=== PATIENT | male | born 1935 | race Caucasian/White ===

== ENCOUNTER → 2017-10-05 09:06 | Outpatient (CLI) | payer MEDICARE, SELFPAY ==
[2017-10-05 11:23] LABS: Anion Gap 12 (5-15); BUN 17 mg/dL (7-18); BUN/Creat Ratio 8.8 RATIO (10-20); Calcium,Total 8.9 mg/dL (8.5-10.1); Chloride 103 mmol/L (98-107); Creatinine, Serum 1.94 mg/dL (0.70-1.30); EST Glomerular Filtration Rate 36 mL/min (>60); Est Glom Filt Rate - Afr Amer 43 mL/min (>60); Glucose 77 mg/dL (74-106); Potassium 3.9 mmol/L (3.5-5.1); Sodium Level 142 mmol/L (136-145)
== END ==
PROVIDERS: Family Provider Family Medicine; PCP Family Medicine; Visit Provider Family Medicine
DX: I10 Essential (primary) hypertension (principal)
CPT/HCPCS: 36415; 80048

== ENCOUNTER → 2017-10-25 08:26 | Outpatient (CLI) | payer MEDICARE, SELFPAY ==
[2017-10-25 09:43] LABS: Anion Gap 10 (5-15); BUN 24 mg/dL (7-18); BUN/Creat Ratio 12.1 RATIO (10-20); Calcium,Total 8.4 mg/dL (8.5-10.1); Chloride 109 mmol/L (98-107); Creatinine, Serum 1.98 mg/dL (0.70-1.30); EST Glomerular Filtration Rate 35 mL/min (>60); Est Glom Filt Rate - Afr Amer 42 mL/min (>60); Glucose 83 mg/dL (74-106); Potassium 3.8 mmol/L (3.5-5.1); Sodium Level 143 mmol/L (136-145)
== END ==
PROVIDERS: Family Provider Family Medicine; PCP Family Medicine; Visit Provider Family Medicine
DX: N18.3 Chronic kidney disease, stage 3 (moderate) (principal)
CPT/HCPCS: 36415; 80048

== ENCOUNTER → 2018-04-22 10:23 | Outpatient (CLI) | payer MEDICARE, SELFPAY ==
[2018-04-22 11:48] LABS: Anion Gap 9 (5-15); BUN 29 mg/dL (7-18); BUN/Creat Ratio 15.3 RATIO (10-20); Calcium,Total 8.7 mg/dL (8.5-10.1); Chloride 107 mmol/L (98-107); Creatinine, Serum 1.89 mg/dL (0.70-1.30); EST Glomerular Filtration Rate 37 mL/min (>60); Est Glom Filt Rate - Afr Amer 44 mL/min (>60); Glucose 97 mg/dL (74-106); Potassium 4.5 mmol/L (3.5-5.1); Sodium Level 140 mmol/L (136-145)
--- OUTSIDE RECORDS SUMMARY | 2018-06-08 01:28 | XMS RPT_ITS ---
:1935 Author Organization OHIP Care Team Providers Name Role Phone Yaron Rolon Attending Unavailable Greg Wilson Primary Care Unavailable Yaron Rolon Referring Unavailable Steve, Greg Attending Unavailable Greg Wilson Primary Care Unavailable Greg Wilson Referring Unavailable Greg Wilson Attending Unavailable Greg Wilson Primary Care Unavailable Greg Wilson Referring Unavailable GREG WILSON Attending Unavailable GREG WILSON Referring Unavailable Yaron ROLON (PA-C) Attending Unavailable GREG WILSON Attending Unavailable GREG WILSON Referring Unavailable Yaron ROLON (PA-C) Attending Unavailable Yaron ROLON (PA-C) Attending Unavailable Meera Peck Admitting Unavailable Meera Peck Attending Unavailable Greg Wilson Primary Care Unavailable Dr. Meera Peck Attending Unavailable Karlos [facility] Primary Care Unavailable PROBLEMS PROBLEMS DATE TYPE CONDITION / CODE ATTENDING STATUS SOURCE 02/03/2018 Active Cough / NA Active [facility] R05(ICD-10) [place] Repository 02/03/2018 Active Unspecified NA Active [facility] chronic bronchitis [place] / J42(ICD-10) Repository 07/23/2017 Active Bronchitis, not NA Active [facility] specified as acute [place] or chronic / Repository J40(ICD-10) PROCEDURES PROCEDURES No Procedure Records FoundRESULTS RESULTS OBSOLETE Observed: 05/26/2018 Status: COMPLETED Source: [place] 12:00 AM [facility] REPOSITORY Refill (FAMPWS) AMBERLY DUNBAR ([id number]) 1935 M Date Time Provider Department 05/26/18 GREG WILSON [facility] During your visit today, we recorded the following information about you: Dori Bauer Psr 05/26/2018 8:47 AM Signed Patient has been identified by name and date of : Yes Pending Prescriptions Disp Refills FINASTERIDE 5 MG TABLET 90 tablet 3 Sig: Take 1 tablet by mouth once daily. MARICARMEN: No CHOLESTYRAMINE (WITH SUGAR) 4 GRAM POWDER FOR SUSP IN A PACKET 120 Packet 6 Sig: Take 1 Packet by mouth four times daily. MARICARMEN: No RX INSTRUCTIONS: Patient aware RX will be sent to pharmacy. No need to notify patient. Dori Bauer Psr Cydney Tyler LPN 05/26/2018 9:00 AM Signed DAVID: 05/12/18 w/ NANETTE Rolon NOV: None scheduled Last Refill: Proscar: 05/31/17 #90 3 refills Questran: 09/17/16 120 pack 6 refills Cydney Tyler LPN Allergies As of Date: 05/26/2018 Noted Allergy Reaction DEMEROL (MEPERIDINE (PF)) 12/14/2014 11 - Vomiting DILTIAZEM 01/19/2011 14 - Other: See Comments Comments: stasis edema GABAPENTIN 06/16/2010 5 - Intolerance Comments: goofy groggy LISINOPRIL 11/03/2010 3 - Cough Comments: cough AMPICILLIN 01/19/2005 5 - Intolerance Comments: rectal yeast NIACIN 01/19/2005 5 - Intolerance Comments: skin hot prickling Date Reviewed: 05/12/2018 Reviewed by: Cecy Ovalle LPN - Fully Assessed Reason for Visit: Refill Request [94] Order(s):finasteride (PROSCAR) 5 mg tabletTake 1 tablet by mouth once daily.Disp: 90 tabletRfl: 3 cholestyramine (QUESTRAN) 4 gram packetTake 1 Packet by mouth four times daily.Disp: 120 PacketRfl: 6 Prescriptions as of 05/26/2018 Sig: FINASTERIDE 5 MG TABLET Take 1 tablet by mouth once d* CHOLESTYRAMINE (WITH SUGAR) 4* Take 1 Packet by mouth four t* ALBUTEROL SULFATE 2.5 MG/3 ML* Use 3 mL via nebulizer every * HYDROCHLOROTHIAZIDE 25 MG TAB* Take 1 tablet by mouth once d* LORATADINE 10 MG TABLET Take 1 tablet by mouth once d* ALBUTEROL INHALATION Inhale as instructed. ICAPS AREDS ORAL Take 1 tablet by mouth twice * ACETAMINOPHEN 325 MG TABLET Take 650 mg by mouth every 6 * FISH OIL ORAL Take by mouth. NITROGLYCERIN 0.4 MG SUBLINGU* Dissolve 1 tablet under the t* Patient not taking: Reported on 05/12/2018 [id number] * Take 1 tablet by mouth once d* CHOLECALCIFEROL (VITAMIN D3) * Take 1 capsule by mouth once * ASPIRIN 81 MG TABLET,DELAYED * Take 1 tablet by mouth once d* FLUTICASONE 50 MCG/ACTUATION * One puff per nostril before l* Problem List As Of Date 05/26/2018 Noted Resolved Pure hypercholesterolemia [E78.00] INVALID FOR* More... 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 NOCTURIA [R35.1] INVALID FOR* More... MITRAL VALVE DISORDER [I05.9] GENERAL OSTEOARTHROSIS [M15.9] Mononeuritis [G58.9] More... 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] INVALID FOR*06/22/2016 Other seborrheic dermatitis [L21.8] INVALID FOR*06/22/2016 Pruritus [L29.9] INVALID FOR*06/22/2016 Benign neoplasm of R upper eyelid [D23.10] INVALID FOR*06/22/2016 Skin tag [L91.8] INVALID FOR*01/29/2014 Scar condition and fibrosis of skin [L90.5] INVALID FOR*06/22/2016 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 Right leg DVT (HCC) [I82.401] INVALID FOR*06/22/2016 More... CKD (chronic kidney disease) stage 3, GFR 30-59*INVALID FOR* RBBB (right bundle branch block with left anter*INVALID FOR* Abdominal pain, unspecified site [R10.9] INVALID FOR*11/26/2016 Diffuse large B-cell lymphoma of intra-abdomina*INVALID FOR* More... 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 Prescriptions ordered this encounter Disp Refills Start End FINASTERIDE 5 MG TABLET 90 t* 3 05/26/2018 Route: ORAL Sig: Take 1 tablet by mouth once daily. CHOLESTYRAMINE (WITH SUGAR) 4 GRAM P* 120 * 6 05/26/2018 Route: ORAL Sig: Take 1 Packet by mouth four times daily. Medications Discontinued During This Encounter finasteride (PROSCAR) 5 mg tablet 90 t* 3 05/31/2017 05/26/2018 Route: ORAL Sig: Take 1 tablet by mouth once daily. Disc: Reason for discontinue is not on file. cholestyramine (QUESTRAN) 4 gram pac* 120 * 6 09/17/2016 05/26/2018 Route: ORAL Sig: Take 1 Packet by mouth four times daily. Disc: Reason for discontinue is not on file. Encounter Status:Closed by GREG WILSON MD on 05/26/18 PROGRESS Observed: 05/12/2018 Status: COMPLETED Source: [place] 10:14 AM [facility] RE[facility] HNO ID: [id number] Author: Yaron Pate (Pa-C) Gonzales Service: (none) Author Type: Physician Stepdown Nurse Type: Progress Notes Filed: 05/12/2018 10:37 AM Note Text: 82 year old male with c/o started with cough yesterday. No sleep over night due to hacking. Thinks just from phlegm. Last time prednisone helped. Having cataract surgery Wednesday. A little wheezing last night coughed up sputum and felt better. Used nebulizer prior to sleep and then again this morning. Phlegm is ropey. CXR has been normal. is at cancer center related to lung cancer and back pain. Discussed renal insufficiency. Has appt with nephrology. Has had moderate insuff prior to 2010. HISTORIES FAMILY HISTORY Problem Relation Age of Onset - Heart Mother - Diabetes Maternal Grandmother - Hypertension Brother elevated cholesterol ? 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 - Snoring - Solar Lentigines 03/22/2012 PAST SURGICAL HISTORY Procedure Laterality Date - APPENDECTOMY 1949 - COLONOSCOP W/ OR W/O [facility] SPEC 09/17/1997 sigmoidoscopy - COLONOSCOP W/ OR W/O BRS SPEC 05/06/1998 Colonoscopy - COLONOSCOP W/ OR W/O BRS SPEC 12/17/14 Colonoscopy - COLONOSCOPY W/BX 01/31/14 No cecal cancer, - COLONOSCOPY W/BX 09/09/2016 anal irritation - CYSTO.PANENDO Cystoscopy - KNEE SCOPE,DIAGNOSTIC 1997 Arthroscopy, knee left, injury left knee laceration 1955 after A/A - [employer] HERNIA REPAIR 08/25/2016 repaired with Vloc- no mesh due to inflammed gallbladder - [employer] HERNIA REPAIR RECUR 03/15/[id number] mesh - LAPAROSCOPIC CHOLEYCYSTECTOMY 08/25/2016 acute on chronic inflammation - PAST SURGICAL HISTORY OF 1975 anal fissurectomy - PAST SURGICAL HISTORY OF 1981 laminectomy - PAST SURGICAL HISTORY OF 1994 sinus surgery - PAST SURGICAL HISTORY OF 1958 pilonodal cyst - PAST SURGICAL HISTORY OF 07/05/12 R total knee replacement - REMOVAL OF TONSILS,<12 Y/O Tonsillectomy - REMOVAL LUPE VAD W PORT/PUMP 12/2016 - REPAIR INCISIONAL HERNIA,REDUCIBLE 03/15/2017 Hernia repair, incisional ventral ST mesh [facility] - REPAIR UMBILICAL DONNA,5+Y/O,REDUC 2001 Hernia repair, umbilical >5yr - TOTAL KNEE REPLACEMENT 06/10/[address] Grimm Social History Marital status: Spouse name: Years of education: Number of children: 2 Social History Main Topics Smoking status: Former Smoker Packs/day: 1.00 Years: 20.00 Types: Cigarettes Quit date: 05/10/1975 Smokeless tobacco: Never Used Alcohol use: Yes 1.0 oz/week Comment: ocas Drug use: No Sexual activity: Yes Partners with: Female ACTIVE PROBLEM LIST Pure Hypercholesterolemia Nocturia Mitral Valve Disorders(424.0) Generalized Osteoarthrosis, Unspecified Site Mononeuritis Benign Prostatic Hyperplasia Without Lower Urinary Tract Symptoms Osteoarthritis Hypertension Abnormality of Gait Ckd (Chronic Kidney Disease) Stage 3, Gfr 30-59 Ml/Min (Hcc) 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 Use over 5-15minutes. Disp: 120 mL Rfl: 3 hydroCHLOROthiazide (HYDRODIURIL, ESIDRIX) 25 mg tablet Take 1 tablet by mouth once daily. Disp: 90 tablet Rfl: 0 loratadine (CLARITIN) 10 mg tablet Take 1 tablet by mouth once daily. Disp: 90 tablet Rfl: 3 finasteride (PROSCAR) 5 mg tablet Take 1 tablet by mouth once daily. Disp: 90 tablet Rfl: 3 ALBUTEROL INHALATION Inhale as instructed. Disp: Rfl: VIT A/VIT C/VIT E/ZINC/COPPER (ICAPS AREDS ORAL) Take 1 tablet by mouth twice daily. Disp: Rfl: cholestyramine (QUESTRAN) 4 gram packet Take 1 Packet by mouth four times daily. Disp: 120 Packet Rfl: 6 acetaminophen (TYLENOL) 325 mg tablet Take 650 mg by mouth every 6 hours as needed. Disp: Rfl: DOCOSAHEXANOIC ACID/EPA (FISH OIL ORAL) Take by mouth. Disp: Rfl: Lxgyafpgeubwl-Cgozfgkz-Otzfnd (CENTRUM SILVER) tab Take 1 tablet by mouth once daily. Disp: 1 tablet Rfl: 0 Cholecalciferol, Vitamin D3, 1,000 unit cap Take 1 capsule by mouth once daily. Disp: Rfl: 0 aspirin, enteric coated (ADULT LOW DOSE ASPIRIN) 81 mg EC tablet Take 1 tablet by mouth once daily. Disp: 90 tablet Rfl: 3 fluticasone (FLONASE) 50 mcg/Actuation NASAL nasal spray One puff per nostril before lying down for bed. Disp: Rfl: 12 nitroglycerin sublingual 0.4 mg SL tablet Dissolve 1 tablet under the tongue as needed. FOR CHEST PAIN. IF NO RELIEF CALL 911 (Patient not taking: Reported on 05/12/2018 ) Disp: 25 Bottle of 25 Rfl: 2 No current facility-administered medications for this visit. DTAP,TDAP,TD(1 - Tdap) due on 11/21/1955 EXAM: BP 120/60 Pulse 88 Temp 36.7 ?C (98 ?F) (Tympanic) Resp 24 Wt 111.1 kg (245 lb) SpO2 93% BMI 31.46 kg/m? Pleasant older man in no acute distress. Alert and oriented all spheres. Normal affect and cognition. Speech normal. No deficits to learning or comprehension. Speaking in full sentencese Skin warm, dry, pink to lips and nailbeds. Normal turgor. Respirations regular and unlabored. No retractions. HEENT WNL. TM's clear. Nose and oropharynx free from injection or lesion. No cervical lymph nodes. Thyroid non-tender, no masses Chest CTA. HRRR without murmur or gallop. Extrem: no clubbing, cyanosis, edema. Extremities are warm and pink with prompt capillary refill. ASSESSMENT/PLAN: 1. Cough - ICD9: 786.2, ICD10: R05 (primary diagnosis) - PREDNISONE 20 MG TABLET 2. Wheezing - ICD9: 786.07, ICD10: R06.2 - PREDNISONE 20 MG TABLET Prednisone due to pending surgery. Continue nebs. Patient agrees to contact form grader with med changes and cough for instructions. Yaron Rolon PA-C CNOV Observed: 05/12/2018 Status: COMPLETED Source: [place] 9:[address] [facility] REPOSITORY Office Visit (FAMPWS) AMBERLY DUNBAR ([id number]) 1935 M Date Time Provider Department 05/12/18 9:00 AM Yaron ROLON) FAMPWS During your visit today, we recorded the following information about you: Temperature Pulse Respiration Blood pressure 98 degrees 88/minute 24/minute 120/60 Weight 111.1 kg Yaron Rolon PA-C 05/12/2018 10:37 AM Signed 82 year old male with c/o started with cough yesterday. No sleep over night due to hacking. Thinks just from phlegm. Last time prednisone helped. Having cataract surgery Wednesday. A little wheezing last night coughed up sputum and felt better. Used nebulizer prior to sleep and then again this morning. Phlegm is ropey. CXR has been normal. is at cancer center related to lung cancer and back pain. Discussed renal insufficiency. Has appt with nephrology. Has had moderate insuff prior to 2010. HISTORIES FAMILY HISTORY Problem Relation Age of Onset - Heart Mother - Diabetes Maternal Grandmother - Hypertension Brother elevated cholesterol ? 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 - Snoring - Solar Lentigines 03/22/2012 PAST SURGICAL HISTORY Procedure Laterality Date - APPENDECTOMY 194 - COLONOSCOP W/ OR W/O [facility] SPEC 09/17/1997 sigmoidoscopy - COLONOSCOP W/ OR W/O [facility] SPEC 05/06/1998 Colonoscopy - COLONOSCOP W/ OR W/O [facility] SPEC 12/17/14 Colonoscopy - COLONOSCOPY W/BX 01/31/14 No cecal cancer, - COLONOSCOPY W/BX 09/09/2016 anal irritation - CYSTO.PANENDO Cystoscopy - KNEE SCOPE,DIAGNOSTIC 1997 Arthroscopy, knee left, injury left knee laceration 1955 after A/A - [employer] HERNIA REPAIR 08/25/2016 repaired with Vloc- no mesh due to inflammed gallbladder - [employer] HERNIA REPAIR RECUR 03/15/[id number] mesh - LAPAROSCOPIC CHOLEYCYSTECTOMY 08/25/2016 acute on chronic inflammation - PAST SURGICAL HISTORY OF 1975 anal fissurectomy - PAST SURGICAL HISTORY OF 1981 laminectomy - PAST SURGICAL HISTORY OF 1994 sinus surgery - PAST SURGICAL HISTORY OF 1958 pilonodal cyst - PAST SURGICAL HISTORY OF 07/05/12 R total knee replacement - REMOVAL OF TONSILS,<12 Y/O Tonsillectomy - REMOVAL LUPE VAD W PORT/PUMP 12/2016 - REPAIR INCISIONAL HERNIA,REDUCIBLE 03/15/2017 Hernia repair, incisional ventral ST mesh [facility] - REPAIR UMBILICAL DONNA,5+Y/O,REDUC 2001 Hernia repair, umbilical >5yr - TOTAL KNEE REPLACEMENT 06/10/[address] Grimm Social History Marital status: Spouse name: Years of education: Number of children: 2 Social History Main Topics Smoking status: Former Smoker Packs/day: 1.00 Years: 20.00 Types: Cigarettes Quit date: 05/10/1975 Smokeless tobacco: Never Used Alcohol use: Yes 1.0 oz/week Comment: ocas Drug use: No Sexual activity: Yes Partners with: Female ACTIVE PROBLEM LIST Pure Hypercholesterolemia Nocturia Mitral Valve Disorders(424.0) Generalized Osteoarthrosis, Unspecified Site Mononeuritis Benign Prostatic Hyperplasia Without Lower Urinary Tract Symptoms Osteoarthritis Hypertension Abnormality of Gait Ckd (Chronic Kidney Disease) Stage 3, Gfr 30-59 Ml/Min (Hcc) 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 Use over 5-15minutes. Disp: 120 mL Rfl: 3 hydroCHLOROthiazide (HYDRODIURIL, ESIDRIX) 25 mg tablet Take 1 tablet by mouth once daily. Disp: 90 tablet Rfl: 0 loratadine (CLARITIN) 10 mg tablet Take 1 tablet by mouth once daily. Disp: 90 tablet Rfl: 3 finasteride (PROSCAR) 5 mg tablet Take 1 tablet by mouth once daily. Disp: 90 tablet Rfl: 3 ALBUTEROL INHALATION Inhale as instructed. Disp: Rfl: VIT A/VIT C/VIT E/ZINC/COPPER (ICAPS AREDS ORAL) Take 1 tablet by mouth twice daily. Disp: Rfl: cholestyramine (QUESTRAN) 4 gram packet Take 1 Packet by mouth four times daily. Disp: 120 Packet Rfl: 6 acetaminophen (TYLENOL) 325 mg tablet Take 650 mg by mouth every 6 hours as needed. Disp: Rfl: DOCOSAHEXANOIC ACID/EPA (FISH OIL ORAL) Take by mouth. Disp: Rfl: Qhkgvmkotjgmi-Xywunztg-Udluqp (CENTRUM SILVER) tab Take 1 tablet by mouth once daily. Disp: 1 tablet Rfl: 0 Cholecalciferol, Vitamin D3, 1,000 unit cap Take 1 capsule by mouth once daily. Disp: Rfl: 0 aspirin, enteric coated (ADULT LOW DOSE ASPIRIN) 81 mg EC tablet Take 1 tablet by mouth once daily. Disp: 90 tablet Rfl: 3 fluticasone (FLONASE) 50 mcg/Actuation NASAL nasal spray One puff per nostril before lying down for bed. Disp: Rfl: 12 nitroglycerin sublingual 0.4 mg SL tablet Dissolve 1 tablet under the tongue as needed. FOR CHEST PAIN. IF NO RELIEF CALL 911 (Patient not taking: Reported on 05/12/2018 ) Disp: 25 Bottle of 25 Rfl: 2 No current facility-administered medications for this visit. DTAP,TDAP,TD(1 - Tdap) due on 11/21/1955 EXAM: BP 120/60 Pulse 88 Temp 36.7 ?C (98 ?F) (Tympanic) Resp 24 Wt 111.1 kg (245 lb) SpO2 93% BMI 31.46 kg/m? Pleasant older man in no acute distress. Alert and oriented all spheres. Normal affect and cognition. Speech normal. No deficits to learning or comprehension. Speaking in full sentencese Skin warm, dry, pink to lips and nailbeds. Normal turgor. Respirations regular and unlabored. No retractions. HEENT WNL. TM's clear. Nose and oropharynx free from injection or lesion. No cervical lymph nodes. Thyroid non-tender, no masses Chest CTA. HRRR without murmur or gallop. Extrem: no clubbing, cyanosis, edema. Extremities are warm and pink with prompt capillary refill. ASSESSMENT/PLAN: 1. Cough - ICD9: 786.2, ICD10: R05 (primary diagnosis) - PREDNISONE 20 MG TABLET 2. Wheezing - ICD9: 786.07, ICD10: R06.2 - PREDNISONE 20 MG TABLET Prednisone due to pending surgery. Continue nebs. Patient agrees to contact form grader with med changes and cough for instructions. EDUARDO Morales PA-C 05/12/2018 10:35 AM Signed Prednisone as directed Push fluids. Hot liquids will help to loosen phlegm Using nebulizer as needed. F/U if cough persists. Referring Provider: SELF [[id number]] Allergies As of Date: 05/12/2018 Noted Allergy Reaction DEMEROL (MEPERIDINE (PF)) 12/14/2014 11 - Vomiting DILTIAZEM 01/19/2011 14 - Other: See Comments Comments: stasis edema GABAPENTIN 06/16/2010 5 - Intolerance Comments: goofy groggy LISINOPRIL 11/03/2010 3 - Cough Comments: cough AMPICILLIN 01/19/2005 5 - Intolerance Comments: rectal yeast NIACIN 01/19/2005 5 - Intolerance Comments: skin hot prickling Date Reviewed: 05/12/2018 Reviewed by: Cecy Ovalle LPN - Fully Assessed Reason for Visit: Cough [28] Cmt: started yesterday evening. Recently treated with prednisone around 04/18/18. Primary Visit Diagnosis:Cough [R05] Other Visit Diagnosis:Wheezing [R06.2] Order(s):predniSONE (DELTASONE) 20 mg tabletTake 1 tablet by mouth once daily for 5 days.Disp: 5 tabletRfl: 0 Prescriptions as of 05/12/2018 Sig: ALBUTEROL SULFATE 2.5 MG/3 ML* Use 3 mL via nebulizer every * HYDROCHLOROTHIAZIDE 25 MG TAB* Take 1 tablet by mouth once d* LORATADINE 10 MG TABLET Take 1 tablet by mouth once d* FINASTERIDE 5 MG TABLET Take 1 tablet by mouth once d* ALBUTEROL INHALATION Inhale as instructed. ICAPS AREDS ORAL Take 1 tablet by mouth twice * CHOLESTYRAMINE (WITH SUGAR) 4* Take 1 Packet by mouth four t* ACETAMINOPHEN 325 MG TABLET Take 650 mg by mouth every 6 * FISH OIL ORAL Take by mouth. DHQKEHRWAIEU-WFNIDYHB-WRIOZJ * Take 1 tablet by mouth once d* CHOLECALCIFEROL (VITAMIN D3) * Take 1 capsule by mouth once * ASPIRIN 81 MG TABLET,DELAYED * Take 1 tablet by mouth once d* FLUTICASONE 50 MCG/ACTUATION * One puff per nostril before l* PREDNISONE 20 MG TABLET Take 1 tablet by mouth once d* NITROGLYCERIN 0.4 MG SUBLINGU* Dissolve 1 tablet under the t* Patient not taking: Reported on 05/12/2018 Problem List As Of Date 05/12/2018 Noted Resolved Pure hypercholesterolemia [E78.00] INVALID FOR* More... 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 NOCTURIA [R35.1] INVALID FOR* More... MITRAL VALVE DISORDER [I05.9] GENERAL OSTEOARTHROSIS [M15.9] Mononeuritis [G58.9] More... 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] INVALID FOR*06/22/2016 Other seborrheic dermatitis [L21.8] INVALID FOR*06/22/2016 Pruritus [L29.9] INVALID FOR*06/22/2016 Benign neoplasm of R upper eyelid [D23.10] INVALID FOR*06/22/2016 Skin tag [L91.8] INVALID FOR*01/29/2014 Scar condition and fibrosis of skin [L90.5] INVALID FOR*06/22/2016 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 Right leg DVT (HCC) [I82.401] INVALID FOR*06/22/2016 More... CKD (chronic kidney disease) stage 3, GFR 30-59*INVALID FOR* RBBB (right bundle branch block with left anter*INVALID FOR* Abdominal pain, unspecified site [R10.9] INVALID FOR*11/26/2016 Diffuse large B-cell lymphoma of intra-abdomina*INVALID FOR* More... 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 Other instructions from your clinician: Prednisone as directed Push fluids. Hot liquids will help to loosen phlegm Using nebulizer as needed. F/U if cough persists. Prescriptions ordered this encounter Disp Refills Start End PREDNISONE 20 MG TABLET 5 ta* 0 05/12/2018 05/17/2018 Route: ORAL Sig: Take 1 tablet by mouth once daily for 5 days. Medications Discontinued During This Encounter heparin 100 unit/mL syrg 1 Sy* 50 10/08/2015 05/12/2018 Class: In Office Sig: Access implanted vascular access device (IVAD) as needed for flush, blood draw or treatment. Before de-accessing port, flush with 10- 20ml normal saline and follow with 5 mL heparin (100 units/mL) (if no heparin allergy). De-access port on treatment completion. Disc: Reason for discontinue is not on file. heparin 100 unit/mL syrg 1 Sy* 50 04/30/2016 05/12/2018 Class: In Office Sig: Access implanted vascular access device (IVAD) as needed for flush, blood draw or treatment. Before de-accessing port, flush with 10- 20ml normal saline and follow with 5 mL heparin (100 units/mL) (if no heparin allergy). De-access port on treatment completion. Disc: Reason for discontinue is not on file. COMPOUNDED PRESCRIPTION 1 Ea* 0 09/21/2016 05/12/2018 Class: Print RX Sig: Access IV port. Access implanted vascular access device (IVAD) as needed for flush. Flush IVAD with 10-20 ml NS and 5 ml heparin flush, every 4 weeks and PRN when IVAD not in use. Disc: Reason for discontinue is not on file. 0.9% NaCl (NORMAL SALINE FLUSH) 10 mL 12 07/01/2015 05/12/2018 Class: In Office Route: INTRAVENOUS Sig: Inject 2-10 mL intravenously as needed (a 4 weeks via port). Disc: Reason for discontinue is not on file. 0.9% NaCl 2 Sy* 50 04/30/2016 05/12/2018 Class: In Office Sig: Access implanted vascular access device (IVAD) as needed for flush, blood draw or treatment. Flush IVAD with 10-20 mL NS every 4 weeks and PRN when IVAD not in use. Disc: Reason for discontinue is not on file. Encounter Status:Closed by Yaron ROLON PA-C on 05/12/18 CBC W/ AUTO DIFF Collected: 05/11/2018 Status: F Source: [facility] 9:42 AM [facility] REPOSITORY TYPE CODE TESTS RESULT OUT OF RANGE REFERENCE UNITS LAB [id number](L 3.6-11.0 E3/mcL OINC) Normal WBC 9.7 LAB [id number](L 3.90-6.10 E6/mcL OINC) Normal RBC 4.65 LAB [id number](L 13.5-18.0 G/DL OINC) Normal Hgb 15.0 LAB [id number](L 42.0-52.0 % OINC) Normal Hct 45.4 LAB 63659550(L 11.5-14.5 % OINC) Normal RDW 14.4 LAB [id number](L 27.0-31.0 pg OINC) High MCH 32.3 LAB [id number](L 33.0-37.0 G/DL OINC) Normal MCHC 33.1 LAB [id number](L 78.0-100.0 fL OINC) Normal MCV 97.6 LAB [id number](L 7.4-11.0 fL OINC) Normal MPV 8.3 LAB [id number](L 130-400 E3/mcL OINC) Normal Platelet 232 Performed By: #### [id number] #### [facility] [employer] [address] [place] [address] AUTO DIFF Collected: 05/11/2018 Status: F Source: [facility] 9:42 AM [facility] REPOSITORY Order Comment: Order Added by Discern Expert. TYPE CODE TESTS RESULT OUT OF RANGE REFERENCE UNITS LAB [id number](L 37.0-75.0 % OINC) Normal Neutro Auto 65.3 LAB [id number](L 20.0-55.0 % OINC) Low Lymph Auto 14.6 LAB 19511565(L 0.0-10.0 % OINC) Normal Wilkinson Auto 7.3 LAB 07786955(L 0.0-11.0 % OINC) High Eos Auto 11.5 LAB [id number](L 0.0-2.0 % OINC) Normal Basophil Auto 1.3 LAB [id number](L 1.4-6.5 E3/mcL OINC) Normal Neutro 6.4 Absolute LAB [id number](L 1.2-3.4 E3/mcL OINC) Normal Lymph Absolute 1.4 LAB 57151867(L 0.0-0.7 E3/mcL OINC) Normal Wilkinson Absolute 0.7 LAB 97372879(L 0.0-0.7 E3/mcL OINC) High Eos Absolute 1.1 LAB 74161592(L 0.0-0.2 E3/mcL OINC) Normal Basophil 0.1 Absolute Performed By: #### [id number] #### GALEN [employer] [address] [place] [address] CMP Collected: 05/11/2018 Status: F Source: [facility] 9:42 AM [facility] REPOSITORY TYPE CODE TESTS RESULT OUT OF RANGE REFERENCE UNITS LAB [id number](L 70-99 mg/dL OINC) High Glucose Lvl 106 LAB 79166617(L 6-23 mg/dL OINC) High BUN 24 LAB 8963029(LO 0.5-1.3 mg/dL INC) High Creatinine 2.2 LAB [id number](L 8.6-10.3 mg/dL OINC) Calcium Normal Lvl 9.5 LAB 75973560(L 136-145 mEq/L OINC) Sodium Normal Lvl 141 LAB 98289555(L 3.5-5.3 mEq/L OINC) Normal Potassium Lvl 4.2 LAB 26166374(L 98-107 mEq/L OINC) Chloride Normal 104 LAB [id number](L 21.0-32.0 mEq/L OINC) CO2 Normal 28.0 LAB 76273498(L 33-136 Int._Unit/ OINC) L Alk Phos Normal 50 LAB 32319248(L 0.00-1.20 mg/dL OINC) Bili Normal Total 0.55 LAB 92012839(L 3.4-5.0 gm/dL OINC) Albumin Normal Lvl 4.1 LAB 63385398(L 6.4-8.2 gm/dL OINC) Total Normal Protein 6.7 LAB 91640005(L 10-52 Int._Unit/ OINC) L ALT Normal 22 LAB [id number](L 9-39 Int._Unit/ OINC) L AST Normal 31 LAB 49407540(L 5.4-30.0 ratio OINC) Normal BUN/Creat Ratio 10.9 LAB 51740977(L 10-20 mEq/L OINC) AGAP Normal 13 LAB 48828041(L 2.0-4.0 G/DL OINC) Globulin Normal 3.0 LAB 12680571(L 1.1-1.9 ratio OINC) A/G Normal Ratio 1.6 Performed By: #### [id number] #### [facility] [employer] [address] [place] [address] EGFR Collected: 05/11/2018 Status: F Source: [facility] 9:42 AM [facility] REPOSITORY Order Comment: Order added by Discern Expert. TYPE CODE TESTS RESULT OUT OF RANGE REFERENCE UNITS LAB [id number](LO mL/min/1.73 INC) m2 Normal eGFR 29 LAB 65490226(LO mL/min/1.73 INC) m2 Normal eGFR AA 35 Performed By: #### [id number] #### [facility] [employer] [address] [place] [address] LDH Collected: 05/11/2018 Status: F Source: [facility] 9:42 AM [facility] REPOSITORY TYPE CODE TESTS RESULT OUT OF RANGE REFERENCE UNITS LAB [id number](LO 84-246 Int._Unit/L INC) Normal LDH 188 Performed By: #### [id number] #### [facility] [employer] [address] [place] [address] BASIC METABOLIC Collected: 04/22/2018 Status: F Source: [facility] (BMP) 10:31 AM [facility] REPOSITORY TYPE CODE TESTS RESULT OUT OF RANGE REFERENCE UNITS LAB L501.0100 74-106 mg/dL Normal GLU 97 Result Comment: Please note revised GLUCOSE reference range effective 2017. LAB L501.1000 7-18 mg/dL High BUN 29 LAB L501.1100 0.70-1.30 mg/dL High CREAT,SERUM 1.89 Result Comment: The validity of the calculated GFR AND GFRAA in patients over 70 years has not been determined. Clinical correlation is essential. LAB L501.1110 >60 mL/min Low EST GFR 37 Result Comment: Non- GFR Calc LAB L501.1115 >60 mL/min Low EST GFR - AA 44 Result Comment: GFR Calc LAB L501.1300 10-20 RATIO Normal BUN/CRE 15.3 LAB L501.2200 8.5-10.1 mg/dL CA Normal 8.7 LAB L501.5300 136-145 mmol/L NA Normal 140 LAB L501.5600 3.5-5.1 mmol/L K Normal 4.5 LAB L501.5900 98-107 mmol/L CL Normal 107 LAB L501.6100 21.0-32.0 mmol/L Normal CO2 24.0 LAB L501.6200 5-15 Normal GAP 9 Performed By: #### L500.2500 #### [facility] [address] [place], [place], [address] PROGRESS Observed: 04/18/2018 Status: COMPLETED Source: [place] 11:[address] [facility] REPOSITORY O ID: [id number] Author: Yaron Pate (Eduardo) Gonzales Service: (none) Author Type: Physician Stepdown Nurse Type: Progress Notes Filed: 04/20/2018 5:01 PM Note Text: 82 year old male with c/o cough over last 10 days. No hx fever. tickley hacking cough, now producing phlegm. Only slept 2 hours last night. Spasm in right neck with cough. had cold sx with cough and congestion. Last year had severe SOB, went to hospital. No hx pneumonia but treated with prednisone and ATB. Had consult pulm, PFT 02/03/18 WNL. Wheezes until ocughs out phlegm, then better. Using Albuterol nebs about three times in last 2 days: helps. 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 Very unsteady on feet. Uses cane and walker. CRF3. 18 BUN 24, creatinine 1.98, up from 17 and 1.94. Has not been checked since. HTN: controlled on HCTZ. No complications. Last 3 Encounter BP Readings: Date: BP: 04/18/2018 122/64 01/28/2018 130/72 11/15/2017 120/62 HISTORIES FAMILY HISTORY Problem Relation Age of Onset - Heart Mother - Diabetes Maternal Grandmother - Hypertension Brother elevated cholesterol ? 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 - Generalized osteoarthrosis, unspecified site - Guillain-Casscoe (HCC) 1986 - HTN (hypertension) - Lymphoma (HCC) 2013 - Mitral valve disorders(424.0) - Mononeuritis of unspecified site Neuropathy - Snoring - Solar Lentigines 03/22/2012 PAST SURGICAL HISTORY Procedure Laterality Date - APPENDECTOMY 194 - COLONOSCOP W/ OR W/O BRS SPEC 09/17/1997 sigmoidoscopy - COLONOSCOP W/ OR W/O BRSH SPEC 05/06/1998 Colonoscopy - COLONOSCOP W/ OR W/O BRSH SPEC 12/17/14 Colonoscopy - COLONOSCOPY W/BX 01/31/14 No cecal cancer, - COLONOSCOPY W/BX 09/09/2016 anal irritation - CYSTO.PANENDO Cystoscopy - KNEE SCOPE,DIAGNOSTIC 1997 Arthroscopy, knee left, injury left knee laceration 1955 after A/A - LAP INC HERNIA REPAIR 08/25/2016 repaired with Vloc- no mesh due to inflammed gallbladder - LAP INC HERNIA REPAIR RECUR 03/15/[id number] mesh - LAPAROSCOPIC CHOLEYCYSTECTOMY 08/25/2016 acute on chronic inflammation - PAST SURGICAL HISTORY OF 1975 anal fissurectomy - PAST SURGICAL HISTORY OF 1981 laminectomy - PAST SURGICAL HISTORY OF 1994 sinus surgery - PAST SURGICAL HISTORY OF 1958 pilonodal cyst - PAST SURGICAL HISTORY OF 07/05/12 R total knee replacement - REMOVAL OF TONSILS,<12 Y/O Tonsillectomy - REMOVAL LUPE VAD W PORT/PUMP 12/2016 - REPAIR INCISIONAL HERNIA,REDUCIBLE 03/15/2017 Hernia repair, incisional ventral ST mesh [facility] - REPAIR UMBILICAL DONNA,5+Y/O,REDUC 2001 Hernia repair, umbilical >5yr - TOTAL KNEE REPLACEMENT 06/10/[address] 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) Generalized Osteoarthrosis, Unspecified Site Mononeuritis Benign Prostatic Hyperplasia Without Lower Urinary Tract Symptoms Osteoarthritis Hypertension Abnormality of 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 Disp: 90 tablet Rfl: 0 loratadine (CLARITIN) 10 mg tablet Take 1 tablet by mouth once daily. Disp: 90 tablet Rfl: 3 albuterol (PROVENTIL) 2.5 mg /3 mL (0.083 %) nebulizer solution Use 3 mL via nebulizer every 4 hours as needed for Wheezing/Shortness of Breath. Use over 5-15minutes. Disp: 120 mL Rfl: 3 finasteride (PROSCAR) 5 mg tablet Take 1 tablet by mouth once daily. Disp: 90 tablet Rfl: 3 ALBUTEROL INHALATION Inhale as instructed. Disp: Rfl: VIT A/VIT C/VIT E/ZINC/COPPER (ICAPS AREDS ORAL) Take 1 tablet by mouth twice daily. Disp: Rfl: COMPOUNDED PRESCRIPTION Access IV port. Access implanted vascular access device (IVAD) as needed for flush. Flush IVAD with 10-20 ml NS and 5 ml heparin flush, every 4 weeks and PRN when IVAD not in use. Disp: 1 Each Rfl: 0 cholestyramine (QUESTRAN) 4 gram packet Take 1 Packet by mouth four times daily. Disp: 120 Packet Rfl: 6 0.9% NaCl Access implanted vascular access device (IVAD) as needed for flush, blood draw or treatment.Flush IVAD with 10-20 mL NS every 4 weeks and PRN when IVAD not in use. Disp: 2 Syringe Rfl: 50 heparin 100 unit/mL syrg Access implanted vascular access device (IVAD) as needed for flush, blood draw or treatment. Before de-accessing port, flush with 10-20ml normal saline and follow with 5 mL heparin (100 units/mL) (if no heparin allergy). De-access port on treatment completion. Disp: 1 Syringe Rfl: 50 heparin 100 unit/mL syrg Access implanted vascular access device (IVAD) as needed for flush, blood draw or treatment. Before de-accessing port, flush with 10-20ml normal saline and follow with 5 mL heparin (100 units/mL) (if no heparin allergy). De-access port on treatment completion. Disp: 1 Syringe Rfl: 50 0.9% NaCl (NORMAL SALINE FLUSH) Inject 2-10 mL intravenously as needed (a 4 weeks via port). Disp: 10 mL Rfl: 12 acetaminophen (TYLENOL) 325 mg tablet Take 650 mg by mouth every 6 hours as needed. Disp: Rfl: DOCOSAHEXANOIC ACID/EPA (FISH OIL ORAL) Take by mouth. Disp: Rfl: nitroglycerin sublingual 0.4 mg SL tablet Dissolve 1 tablet under the tongue as needed. FOR CHEST PAIN. IF NO RELIEF CALL 911 Disp: 25 Bottle of 25 Rfl: 2 Dbqnponomhetq-Rjxyngqw-Apgpqx (CENTRUM SILVER) tab Take 1 tablet by mouth once daily. Disp: 1 tablet Rfl: 0 Cholecalciferol, Vitamin D3, 1,000 unit cap Take 1 capsule by mouth once daily. Disp: Rfl: 0 aspirin, enteric coated (ADULT LOW DOSE ASPIRIN) 81 mg EC tablet Take 1 tablet by mouth once daily. Disp: 90 tablet Rfl: 3 fluticasone (FLONASE) 50 mcg/Actuation NASAL nasal spray One puff per nostril before lying down for bed. Disp: Rfl: 12 No current facility-administered medications for this visit. DTAP,TDAP,TD(1 - Tdap) due on 11/21/1955 EXAM: BP 122/64 Pulse 90 Wt 112 kg (247 lb) SpO2 95% BMI 31.71 kg/m? Pleasant older man in no acute distress. Alert and oriented all spheres. Normal affect and cognition. Speech normal. No deficits to learning or comprehension. Talking easily in full sentences. Skin warm, dry, pink to lips and nailbeds. Normal turgor. HEENT WNL. TM's clear. Nose and oropharynx free from injection or lesion. No cervical lymph nodes. Thyroid non-tender, no masses Respirations regular and unlabored. No retractions. Harsh cough productive, swallowed. Extrem: no clubbing, cyanosis, trace pitting edema ankles. Hyperesthesia lower legs. Extremities are warm and pink with prompt capillary refill. ASSESSMENT/PLAN: 1. Bronchitis - ICD9: 490, ICD10: J40 Push fluids, healthy diet, rest. If fever, worseing: notify immediately. - PREDNISONE 20 MG TABLET - ALBUTEROL SULFATE 2.5 MG/3 ML (0.083 %) SOLUTION FOR NEBULIZATION 2. 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 No change. Abnormality of gait. 3. Essential hypertension - ICD9: 401.9, ICD10: I10 - good control - Continue current medication(s) - Recommend home blood pressure monitoring, to bring results in on next visit - Goal of BP <130/80 - BASIC METABOLIC PNL 4. CKD (chronic kidney disease) stage 3, GFR 30-59 ml/min ([facility]) - ICD9: 585.3, ICD10: N18.3 recheck - BASIC METABOLIC PNL F/u 3 months or as needed if not improving. Yaron Rolon PA-C CNOV Observed: 04/18/2018 Status: COMPLETED Source: [place] 9:[address] [facility] REPOSITORY Office Visit (FAMPWS) AMBERLY DUNBAR ([id number]) 1935 M Date Time Provider Department 04/18/18 9:40 AM Yaron ROLON) FAMPWS During your visit today, we recorded the following information about you: Pulse Blood pressure Weight 90/minute 122/64 112 kg Abby Fontana Segundo 04/20/2018 2:16 PM Signed DURATION OF SYMPTOMS: Began 10 days ago ONSET OF SYMPTOMS: Gradual FEVER: No BODYACHES: No TIREDNESS: No COUGH: Yes, with sputum production CHEST DISCOMFORT: Yes - described as sore SHORTNESS OF BREATH: Yes - with exertion WHEEZING: Yes - but no history of asthma SPUTUM PRODUCTION: Clear OVER THE COUNTER MEDICATION PATIENT IS TAKING: Patient is using Mucinex. He tried the albuterol with minimal relief. Yaron Rolon PA-C 04/20/2018 5:01 PM Signed 82 year old male with c/o cough over last 10 days. No hx fever. tickley hacking cough, now producing phlegm. Only slept 2 hours last night. Spasm in right neck with cough. had cold sx with cough and congestion. Last year had severe SOB, went to hospital. No hx pneumonia but treated with prednisone and ATB. Had consult pulm, PFT 02/03/18 WNL. Wheezes until ocughs out phlegm, then better. Using Albuterol nebs about three times in last 2 days: helps. 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 Very unsteady on feet. Uses cane and walker. CRF3. 18 BUN 24, creatinine 1.98, up from 17 and 1.94. Has not been checked since. HTN: controlled on HCTZ. No complications. Last 3 Encounter BP Readings: Date: BP: 04/18/2018 122/64 01/28/2018 130/72 11/15/2017 120/62 HISTORIES FAMILY HISTORY Problem Relation Age of Onset - Heart Mother - Diabetes Maternal Grandmother - Hypertension Brother elevated cholesterol ? 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 - Generalized osteoarthrosis, unspecified site - Guillain-Casscoe (HCC) 1986 - HTN (hypertension) - Lymphoma (HCC) 2013 - Mitral valve disorders(424.0) - Mononeuritis of unspecified site Neuropathy - Snoring - Solar Lentigines 03/22/2012 PAST SURGICAL HISTORY Procedure Laterality Date - APPENDECTOMY 1949 - COLONOSCOP W/ OR W/O BRSH SPEC 09/17/1997 sigmoidoscopy - COLONOSCOP W/ OR W/O BRSH SPEC 05/06/1998 Colonoscopy - COLONOSCOP W/ OR W/O BRSH SPEC 12/17/14 Colonoscopy - COLONOSCOPY W/BX 01/31/14 No cecal cancer, - COLONOSCOPY W/BX 09/09/2016 anal irritation - CYSTO.PANENDO Cystoscopy - KNEE SCOPE,DIAGNOSTIC 1997 Arthroscopy, knee left, injury left knee laceration 1955 after A/A - LAP INC HERNIA REPAIR 08/25/2016 repaired with Vloc- no mesh due to inflammed gallbladder - LAP INC HERNIA REPAIR RECUR 03/15/[id number] mesh - LAPAROSCOPIC CHOLEYCYSTECTOMY 08/25/2016 acute on chronic inflammation - PAST SURGICAL HISTORY OF 1975 anal fissurectomy - PAST SURGICAL HISTORY OF 1981 laminectomy - PAST SURGICAL HISTORY OF 1994 sinus surgery - PAST SURGICAL HISTORY OF 1958 pilonodal cyst - PAST SURGICAL HISTORY OF 07/05/12 R total knee replacement - REMOVAL OF TONSILS,<12 Y/O Tonsillectomy - REMOVAL LUPE VAD W PORT/PUMP 12/2016 - REPAIR INCISIONAL HERNIA,REDUCIBLE 03/15/2017 Hernia repair, incisional ventral ST mesh [facility] - REPAIR UMBILICAL DONNA,5+Y/O,REDUC 2001 Hernia repair, umbilical >5yr - TOTAL KNEE REPLACEMENT 06/10/[address] 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) Generalized Osteoarthrosis, Unspecified Site Mononeuritis Benign Prostatic Hyperplasia Without Lower Urinary Tract Symptoms Osteoarthritis Hypertension Abnormality of 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 Disp: 90 tablet Rfl: 0 loratadine (CLARITIN) 10 mg tablet Take 1 tablet by mouth once daily. Disp: 90 tablet Rfl: 3 albuterol (PROVENTIL) 2.5 mg /3 mL (0.083 %) nebulizer solution Use 3 mL via nebulizer every 4 hours as needed for Wheezing/Shortness of Breath. Use over 5-15minutes. Disp: 120 mL Rfl: 3 finasteride (PROSCAR) 5 mg tablet Take 1 tablet by mouth once daily. Disp: 90 tablet Rfl: 3 ALBUTEROL INHALATION Inhale as instructed. Disp: Rfl: VIT A/VIT C/VIT E/ZINC/COPPER (ICAPS AREDS ORAL) Take 1 tablet by mouth twice daily. Disp: Rfl: COMPOUNDED PRESCRIPTION Access IV port. Access implanted vascular access device (IVAD) as needed for flush. Flush IVAD with 10-20 ml NS and 5 ml heparin flush, every 4 weeks and PRN when IVAD not in use. Disp: 1 Each Rfl: 0 cholestyramine (QUESTRAN) 4 gram packet Take 1 Packet by mouth four times daily. Disp: 120 Packet Rfl: 6 0.9% NaCl Access implanted vascular access device (IVAD) as needed for flush, blood draw or treatment.Flush IVAD with 10-20 mL NS every 4 weeks and PRN when IVAD not in use. Disp: 2 Syringe Rfl: 50 heparin 100 unit/mL syrg Access implanted vascular access device (IVAD) as needed for flush, blood draw or treatment. Before de-accessing port, flush with 10-20ml normal saline and follow with 5 mL heparin (100 units/mL) (if no heparin allergy). De-access port on treatment completion. Disp: 1 Syringe Rfl: 50 heparin 100 unit/mL syrg Access implanted vascular access device (IVAD) as needed for flush, blood draw or treatment. Before de-accessing port, flush with 10-20ml normal saline and follow with 5 mL heparin (100 units/mL) (if no heparin allergy). De-access port on treatment completion. Disp: 1 Syringe Rfl: 50 0.9% NaCl (NORMAL SALINE FLUSH) Inject 2-10 mL intravenously as needed (a 4 weeks via port). Disp: 10 mL Rfl: 12 acetaminophen (TYLENOL) 325 mg tablet Take 650 mg by mouth every 6 hours as needed. Disp: Rfl: DOCOSAHEXANOIC ACID/EPA (FISH OIL ORAL) Take by mouth. Disp: Rfl: nitroglycerin sublingual 0.4 mg SL tablet Dissolve 1 tablet under the tongue as needed. FOR CHEST PAIN. IF NO RELIEF CALL 911 Disp: 25 Bottle of 25 Rfl: 2 Ffslihizzdrao-Dncycsvx-Vjbemq (CENTRUM SILVER) tab Take 1 tablet by mouth once daily. Disp: 1 tablet Rfl: 0 Cholecalciferol, Vitamin D3, 1,000 unit cap Take 1 capsule by mouth once daily. Disp: Rfl: 0 aspirin, enteric coated (ADULT LOW DOSE ASPIRIN) 81 mg EC tablet Take 1 tablet by mouth once daily. Disp: 90 tablet Rfl: 3 fluticasone (FLONASE) 50 mcg/Actuation NASAL nasal spray One puff per nostril before lying down for bed. Disp: Rfl: 12 No current facility-administered medications for this visit. DTAP,TDAP,TD(1 - Tdap) due on 11/21/1955 EXAM: BP 122/64 Pulse 90 Wt 112 kg (247 lb) SpO2 95% BMI 31.71 kg/m? Pleasant older man in no acute distress. Alert and oriented all spheres. Normal affect and cognition. Speech normal. No deficits to learning or comprehension. Talking easily in full sentences. Skin warm, dry, pink to lips and nailbeds. Normal turgor. HEENT WNL. TM's clear. Nose and oropharynx free from injection or lesion. No cervical lymph nodes. Thyroid non-tender, no masses Respirations regular and unlabored. No retractions. Harsh cough productive, swallowed. Extrem: no clubbing, cyanosis, trace pitting edema ankles. Hyperesthesia lower legs. Extremities are warm and pink with prompt capillary refill. ASSESSMENT/PLAN: 1. Bronchitis - ICD9: 490, ICD10: J40 Push fluids, healthy diet, rest. If fever, worseing: notify immediately. - PREDNISONE 20 MG TABLET - ALBUTEROL SULFATE 2.5 MG/3 ML (0.083 %) SOLUTION FOR NEBULIZATION 2. 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 No change. Abnormality of gait. 3. Essential hypertension - ICD9: 401.9, ICD10: I10 - good control - Continue current medication(s) - Recommend home blood pressure monitoring, to bring results in on next visit - Goal of BP <130/80 - BASIC METABOLIC PNL 4. CKD (chronic kidney disease) stage 3, GFR 30-59 ml/min (HCC) - ICD9: 585.3, ICD10: N18.3 recheck - BASIC METABOLIC PNL F/u 3 months or as needed if not improving. EDUARDO Morales PA-C 04/18/2018 11:29 AM Signed Acute Bronchitis What is acute bronchitis? Acute bronchitis is an infection of the bronchial (say: ?wqiem-tbp-swa?) tree. The bronchial tree is made up of the tubes that carry air into your lungs. When these tubes get infected, they swell and mucus (thick fluid) forms inside them. This makes it hard for you to breathe. You may cough up mucus and wheeze (make a whistling sound when you breathe). What causes acute bronchitis? Acute bronchitis is almost always caused by viruses that attack the lining of the bronchial tree and cause infection. As your body fights back against these viruses, more swelling occurs and more mucus is made. It takes time for your body to kill the viruses and heal the damage to your bronchial tubes. In most cases, the same viruses that cause colds cause acute bronchitis. Research has shown that bacterial infection is a much less common cause of bronchitis than we used to think. Very rarely, an infection caused by a fungus can cause acute bronchitis. How do people get acute bronchitis? The viruses that cause acute bronchitis are sprayed into the air or onto people?s hands when they cough. You can get acute bronchitis if you breathe in these viruses. You can also get it if you touch a hand that is coated with the viruses. If you smoke or are around damaging fumes (such as those in certain kinds of factories), you are more likely to get acute bronchitis and to have it longer. This is because your bronchial tree is already damaged. How is acute bronchitis treated? Most cases of acute bronchitis will go away on their own after a few days or a week. It's a good idea to get plenty of rest, drink lots of noncaffeinated fluids (for example, water and fruit juices) and increase the humidity in your environment. Because acute bronchitis is usually caused by viruses, antibiotics (medicines that kill bacteria) usually do not help. Even if you cough up mucus that is colored or thick, antibiotics probably won?t help you get better any faster. If you smoke, you should cut down on the number of cigarettes you smoke, or stop smoking altogether. This will help your bronchial tree heal faster. For some people with acute bronchitis, doctors prescribe medicines that are usually used to treat asthma. These medicines can help open the bronchial tubes and clear out mucus. They are usually given with an inhaler. An inhaler sprays the medicine right into the bronchial tree. Your doctor will decide if this treatment is right for you. How long will the cough from acute bronchitis last? You should call your doctor if: You continue to wheeze and cough for more than 2 weeks, especially at night or when you are active. You continue to cough for more than 2 weeks and sometimes have a bad-tasting fluid come up into your mouth. You have a cough, you feel very sick and weak, and you have a high fever that doesn?t go down. You cough up blood. You have trouble breathing when you lie down. Your feet swell. Sometimes the cough from acute bronchitis lasts for several weeks or months. Usually this happens because the bronchial tree is taking a long time to heal. However, a cough that doesn?t go away may be a sign of another problem, like asthma or pneumonia. How can I keep from getting acute bronchitis again? One of the best ways to keep from getting acute bronchitis is to wash your hands often to get rid of any viruses. If you smoke, the best defense against acute bronchitis is to quit. Smoking damages your bronchial tree and makes it easier for viruses to cause infection. Smoking also slows down the healing, so it takes longer for you to get well. Reviewed/Updated: 05/15 Created: 09/07 This handout provides a general overview on this topic and may not apply to everyone. To find out if this handout applies to you and to get more information on this subject, talk to your family doctor. Copyright ? [id number] [employer] [place] [employer] Permission is granted to print and photocopy this material for nonprofit educational uses. Written permission is required for all other uses, including electronic uses. 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 Use over 5-15minutes.Disp: 120 mLRfl: 3 BASIC METABOLIC PNL [SQBMP] Order #: [id number] FUTURE Prescriptions as of 04/18/2018 Sig: SODIUM CHLORIDE 0.9 % INJECTI* Inject 2-10 mL intravenously * SODIUM CHLORIDE 0.9% FLUSH Access implanted vascular acc* ACETAMINOPHEN 325 MG TABLET Take 650 mg by mouth every 6 * ALBUTEROL SULFATE 2.5 MG/3 ML* Use 3 mL via nebulizer every * ALBUTEROL INHALATION Inhale as instructed. ASPIRIN 81 MG TABLET,DELAYED * Take 1 tablet by mouth once d* CHOLECALCIFEROL (VITAMIN D3) * Take 1 capsule by mouth once * CHOLESTYRAMINE (WITH SUGAR) 4* Take 1 Packet by mouth four t* COMPOUNDED PRESCRIPTION Access IV port. Access impla* FISH OIL ORAL Take by mouth. FINASTERIDE 5 MG TABLET Take 1 tablet by mouth once d* FLUTICASONE 50 MCG/ACTUATION * One puff per nostril before l* HEPARIN LOCK FLUSH (PORCINE) * Access implanted vascular acc* HEPARIN LOCK FLUSH (PORCINE) * Access implanted vascular acc* HYDROCHLOROTHIAZIDE 25 MG TAB* Take 1 tablet by mouth once d* LORATADINE 10 MG TABLET Take 1 tablet by mouth once d* [id number] * Take 1 tablet by mouth once d* NITROGLYCERIN 0.4 MG SUBLINGU* Dissolve 1 tablet under the t* ICAPS AREDS ORAL Take 1 tablet by mouth twice * PREDNISONE 20 MG TABLET Take 2 tablets by mouth once * Problem List As Of Date 04/18/2018 Noted Resolved Pure hypercholesterolemia [E78.00] INVALID FOR* More... 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 NOCTURIA [R35.1] INVALID FOR* More... MITRAL VALVE DISORDER [I05.9] GENERAL OSTEOARTHROSIS [M15.9] Mononeuritis [G58.9] More... 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] INVALID FOR*06/22/2016 Other seborrheic dermatitis [L21.8] INVALID FOR*06/22/2016 Pruritus [L29.9] INVALID FOR*06/22/2016 Benign neoplasm of R upper eyelid [D23.10] INVALID FOR*06/22/2016 Skin tag [L91.8] INVALID FOR*01/29/2014 Scar condition and fibrosis of skin [L90.5] INVALID FOR*06/22/2016 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 Right leg DVT (HCC) [I82.401] INVALID FOR*06/22/2016 More... CKD (chronic kidney disease) stage 3, GFR 30-59*INVALID FOR* RBBB (right bundle branch block with left anter*INVALID FOR* Abdominal pain, unspecified site [R10.9] INVALID FOR*11/26/2016 Diffuse large B-cell lymphoma of intra-abdomina*INVALID FOR* More... 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 Other instructions from your clinician: Acute Bronchitis What is acute bronchitis? Acute bronchitis is an infection of the bronchial (say: ?jzgiy-sam-omz?) tree. The bronchial tree is made up of the tubes that carry air into your lungs. When these tubes get infected, they swell and mucus (thick fluid) forms inside them. This makes it hard for you to breathe. You may cough up mucus and wheeze (make a whistling sound when you breathe). What causes acute bronchitis? Acute bronchitis is almost always caused by viruses that attack the lining of the bronchial tree and cause infection. As your body fights back against these viruses, more swelling occurs and more mucus is made. It takes time for your body to kill the viruses and heal the damage to your bronchial tubes. In most cases, the same viruses that cause colds cause acute bronchitis. Research has shown that bacterial infection is a much less common cause of bronchitis than we used to think. Very rarely, an infection caused by a fungus can cause acute bronchitis. How do people get acute bronchitis? The viruses that cause acute bronchitis are sprayed into the air or onto people?s hands when they cough. You can get acute bronchitis if you breathe in these viruses. You can also get it if you touch a hand that is coated with the viruses. If you smoke or are around damaging fumes (such as those in certain kinds of factories), you are more likely to get acute bronchitis and to have it longer. This is because your bronchial tree is already damaged. How is acute bronchitis treated? Most cases of acute bronchitis will go away on their own after a few days or a week. It's a good idea to get plenty of rest, drink lots of noncaffeinated fluids (for example, water and fruit juices) and increase the humidity in your environment. Because acute bronchitis is usually caused by viruses, antibiotics (medicines that kill bacteria) usually do not help. Even if you cough up mucus that is colored or thick, antibiotics probably won?t help you get better any faster. If you smoke, you should cut down on the number of cigarettes you smoke, or stop smoking altogether. This will help your bronchial tree heal faster. For some people with acute bronchitis, doctors prescribe medicines that are usually used to treat asthma. These medicines can help open the bronchial tubes and clear out mucus. They are usually given with an inhaler. An inhaler sprays the medicine right into the bronchial tree. Your doctor will decide if this treatment is right for you. How long will the cough from acute bronchitis last? You should call your doctor if: You continue to wheeze and cough for more than 2 weeks, especially at night or when you are active. You continue to cough for more than 2 weeks and sometimes have a bad-tasting fluid come up into your mouth. You have a cough, you feel very sick and weak, and you have a high fever that doesn?t go down. You cough up blood. You have trouble breathing when you lie down. Your feet swell. Sometimes the cough from acute bronchitis lasts for several weeks or months. Usually this happens because the bronchial tree is taking a long time to heal. However, a cough that doesn?t go away may be a sign of another problem, like asthma or pneumonia. How can I keep from getting acute bronchitis again? One of the best ways to keep from getting acute bronchitis is to wash your hands often to get rid of any viruses. If you smoke, the best defense against acute bronchitis is to quit. Smoking damages your bronchial tree and makes it easier for viruses to cause infection. Smoking also slows down the healing, so it takes longer for you to get well. Reviewed/Updated: 05/15 Created: 09/07 This handout provides a general overview on this topic and may not apply to everyone. To find out if this handout applies to you and to get more information on this subject, talk to your family doctor. Copyright ? [id number] [employer] [place] [employer] Permission is granted to print and photocopy this material for nonprofit educational uses. Written permission is required for all other uses, including electronic uses. Visit Notes: >> Abby Fontana Ma Mon Apr 18, 2018 9:49 AM Status: Signed DURATION OF SYMPTOMS: Began 10 days ago ONSET OF SYMPTOMS: Gradual FEVER: No BODYACHES: No TIREDNESS: No COUGH: Yes, with sputum production CHEST DISCOMFORT: Yes - described as sore SHORTNESS OF BREATH: Yes - with exertion WHEEZING: Yes - but no history of asthma SPUTUM PRODUCTION: Clear OVER THE COUNTER MEDICATION PATIENT IS TAKING: Patient is using Mucinex. He tried the albuterol with minimal relief. Prescriptions ordered this encounter Disp Refills Start End PREDNISONE 20 MG TABLET 10 t* 0 04/18/2018 04/23/2018 Route: ORAL Sig: Take 2 tablets by mouth once daily for 5 days. ALBUTEROL SULFATE 2.5 MG/3 ML (0.083* 120 * 3 04/18/2018 Route: NEBULIZATION Sig: Use 3 mL via nebulizer every 4 hours as needed for Wheezing/Shortness of Breath. Use over 5-15minutes. Medications Discontinued During This Encounter doxycycline monohydrate (MONODOX) 10* 20 c* 0 01/28/2018 04/18/2018 Route: ORAL Sig: Take 1 capsule by mouth twice daily. Disc: Course of therapy completed albuterol (PROVENTIL) 2.5 mg /3 mL (* 120 * 3 11/24/2017 04/18/2018 Route: NEBULIZATION -UNSPEC Sig: Use 3 mL via nebulizer every 4 hours as needed for Wheezing/Shortness of Breath. Use over 5-15minutes. Disc: Reason for discontinue is not on file. Disposition: Return in about 3 months (around 07/17/2018). Follow-up and Disposition History Recorded Encounter Status:Closed by ABBY FONTANA MA on 04/20/18 PROGRESS Observed: 01/28/2018 Status: COMPLETED Source: [place] 12:[address] [facility] REPOSITORY HNO ID: [id number] Author: Greg Wilson Service: (none) Author Type: Physician Type: Progress Notes Filed: 01/28/2018 12:39 PM Note Text: Patient presents with: Cough HPI: Patient presents today for office visit for acute visit. Nursing Notes: Angelia Mulligan LPN 01/28/2018 11:55 AM Signed Patient here for cough and states that has had some shortness of breath. Cough is nonproductive but feels like needs to cough up. Uses albuterol in nebulizer PRN. Has been ill for several weeks and then some. Gets sick frequently. Not sure he ever gets rid of chronic phlegm. Had seen Jalen in November and gave him prednisone. He never got think the singulair. Never got his combivent. No fever or chills. No heatrburn. No sinus pressure or sore throat or ear pain. Did get allergy shots at one point. Quit those due to cost. if it costs too much, I'm going to . Has been on some antibiotics intermittently and steroids which helps. Has had a chest xray in July. Onco: still following with oncology. No weight loss or swollen glands. Seeing oncology in [place]. Cardio:Overall feels well. No chest pain or edema or palpitations. Saw cardio once. Does not have to follow with them. Gu: urination is stable. Has not changed. HYPERTENSION: bp is well controlled. No side effects. Using his cane/walker. No falls. Discussed his neuropathy. MEDICATIONS: Current Outpatient Prescriptions: hydroCHLOROthiazide (HYDRODIURIL, ESIDRIX) 25 mg tablet Take 1 tablet by mouth once daily. albuterol (PROVENTIL) 2.5 mg /3 mL (0.083 %) nebulizer solution Use 3 mL via nebulizer every 4 hours as needed for Wheezing/Shortness of Breath. Use over 5-15minutes. finasteride (PROSCAR) 5 mg tablet Take 1 tablet by mouth once daily. loratadine (CLARITIN) 10 mg tablet Take 1 tablet by mouth once daily. VIT A/VIT C/VIT E/ZINC/COPPER (ICAPS AREDS ORAL) Take 1 tablet by mouth twice daily. cholestyramine (QUESTRAN) 4 gram packet Take 1 Packet by mouth four times daily. DOCOSAHEXANOIC ACID/EPA (FISH OIL ORAL) Take by mouth. Uigbwxltlpihy-Wvppiubk-Djappb (CENTRUM SILVER) tab Take 1 tablet by mouth once daily. Cholecalciferol, Vitamin D3, 1,000 unit cap Take 1 capsule by mouth once daily. aspirin, enteric coated (ADULT LOW DOSE ASPIRIN) 81 mg EC tablet Take 1 tablet by mouth once daily. fluticasone (FLONASE) 50 mcg/Actuation NASAL nasal spray One puff per nostril before lying down for bed. ALBUTEROL INHALATION Inhale as instructed. COMPOUNDED PRESCRIPTION Access IV port. Access implanted vascular access device (IVAD) as needed for flush. Flush IVAD with 10-20 ml NS and 5 ml heparin flush, every 4 weeks and PRN when IVAD not in use. 0.9% NaCl Access implanted vascular access device (IVAD) as needed for flush, blood draw or treatment.Flush IVAD with 10-20 mL NS every 4 weeks and PRN when IVAD not in use. heparin 100 unit/mL syrg Access implanted vascular access device (IVAD) as needed for flush, blood draw or treatment. Before de-accessing port, flush with 10-20ml normal saline and follow with 5 mL heparin (100 units/mL) (if no heparin allergy). De-access port on treatment completion. heparin 100 unit/mL syrg Access implanted vascular access device (IVAD) as needed for flush, blood draw or treatment. Before de-accessing port, flush with 10-20ml normal saline and follow with 5 mL heparin (100 units/mL) (if no heparin allergy). De-access port on treatment completion. 0.9% NaCl (NORMAL SALINE FLUSH) Inject 2-10 mL intravenously as needed (a 4 weeks via port). acetaminophen (TYLENOL) 325 mg tablet Take 650 mg by mouth every 6 hours as needed. nitroglycerin sublingual 0.4 mg SL tablet Dissolve 1 tablet under the tongue as needed. FOR CHEST PAIN. IF NO RELIEF CALL 911 No current facility-administered medications for this visit. 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 - Generalized osteoarthrosis, unspecified site - Guillain-Casscoe (HCC) 1986 - HTN (hypertension) - Lymphoma (HCC) 2013 - Mitral valve disorders(424.0) - Mononeuritis of unspecified site Neuropathy - Snoring - Solar Lentigines 03/22/2012 PAST SURGICAL HISTORY Procedure Laterality Date - APPENDECTOMY 194 - COLONOSCOP W/ OR W/O BRSH SPEC 09/17/1997 sigmoidoscopy - COLONOSCOP W/ OR W/O BRSH SPEC 05/06/1998 Colonoscopy - COLONOSCOP W/ OR W/O BRSH SPEC 12/17/14 Colonoscopy - COLONOSCOPY W/BX 01/31/14 No cecal cancer, - COLONOSCOPY W/BX 09/09/2016 anal irritation - CYSTO.PANENDO Cystoscopy - KNEE SCOPE,DIAGNOSTIC 1997 Arthroscopy, knee left, injury left knee laceration 1955 after A/A - LAP INC HERNIA REPAIR 08/25/2016 repaired with Vloc- no mesh due to inflammed gallbladder - LAP INC HERNIA REPAIR RECUR 03/15/[id number] mesh - LAPAROSCOPIC CHOLEYCYSTECTOMY 08/25/2016 acute on chronic inflammation - PAST SURGICAL HISTORY OF 1975 anal fissurectomy - PAST SURGICAL HISTORY OF 1981 laminectomy - PAST SURGICAL HISTORY OF 1994 sinus surgery - PAST SURGICAL HISTORY OF 1958 pilonodal cyst - PAST SURGICAL HISTORY OF 07/05/12 R total knee replacement - REMOVAL OF TONSILS,<12 Y/O Tonsillectomy - REMOVAL LUPE VAD W PORT/PUMP 12/2016 - REPAIR INCISIONAL HERNIA,REDUCIBLE 03/15/2017 Hernia repair, incisional ventral ST mesh [facility] - REPAIR UMBILICAL DONNA,5+Y/O,REDUC 2001 Hernia repair, umbilical >5yr - TOTAL KNEE REPLACEMENT 06/10/[address] Grimm FAMILY HISTORY Problem Relation Age of Onset - Heart Mother - Diabetes Maternal Grandmother - Hypertension Brother elevated cholesterol ? Social History Marital status: Spouse name: Years of education: Number of children: 2 Social History Main Topics Smoking status: Former Smoker Packs/day: 1.00 Years: 20.00 Types: Cigarettes Quit date: 05/10/1975 Smokeless tobacco: Never Used Alcohol use: Yes 1.0 oz/week Comment: ocas Drug use: No Sexual activity: Yes Partners with: Female Reviewed current medications, allergies, past medical history, surgical history, family history and social history today. REVIEW OF SYSTEMS GENERAL: No weight loss, malaise or fevers GI: Negative for change in bowel habit, using colestid for diarrhea. adjusts it. All other reviewed and negative other than HPI. HEALTH MAINTENANCE: Reviewed health maintenance issues today and recommended the following in detail. Cannot use flu shot VITALS: BP 130/72 Pulse 94 Temp 36.8 ?C (98.3 ?F) (Tympanic) Wt 109.8 kg (242 lb) SpO2 94% BMI 31.07 kg/m? Last 4 Encounter Wt Readings: Date: Wt: 01/28/2018 109.8 kg (242 lb) 11/15/2017 112.9 kg (249 lb) 03/02/2017 108.9 kg (240 lb) 02/09/2017 108.9 kg (240 lb) PHYSICAL EXAMINATION: General appearance: Well appearing, alert, in no acute distress, well-hydrated, well nourished. Skin: Skin color, texture, turgor normal, no suspicious rashes or lesions Head: Normocephalic, no masses, lesions, tenderness or abnormalities Eyes: Anicteric sclera. Pupils are equally round and reactive to light. Extraocular movements are intact. Ears: External ears normal, canals clear Nose/Sinuses: Nares normal, septum midline, mucosa normal, no drainage or sinus tenderness Oropharynx: Lips, mucosa, and tongue normal, teeth and gums normal, oropharynx normal Neck: supple Lungs: moving air well. Few scattered rhonchi. Clears with cough. Heart: RRR without murmur, gallop, or rubs. No ectopy Abdomen: Normal abdominal exam, Abdomen soft, non-tender. Bowel sounds normal. No masses, organomegaly Extremities: No deformities, edema, skin discoloration, clubbing or cyanosis. Good capillary refill. ASSESSMENT/PLAN: 1. Cough - ICD9: 786.2, ICD10: R05 (primary diagnosis) - does not want to add more inhalers. Use nebulizers. - SPIROMETRY - BASELINE AND POST DILATOR - CONSULT TO PULM/CRITICAL CARE 2. Chronic bronchitis, unspecified chronic bronchitis type (HCC) - ICD9: 491.9, ICD10: J42 - Call if symptoms worsen at all or if not better in one to two weeks - SPIROMETRY - BASELINE AND POST DILATOR - CONSULT TO PULM/CRITICAL CARE - PREDNISONE 20 MG TABLET - DOXYCYCLINE MONOHYDRATE 100 MG CAPSULE 3. CKD (chronic kidney disease) stage 3, GFR 30-59 ml/min ([facility]) - ICD9: 585.3, ICD10: N18.3 - avoid nsaids. 4. Essential hypertension - ICD9: 401.9, ICD10: I10 - good control - Continue current medication(s) - Goal of BP <130/80 5. Mononeuritis - ICD9: 355.9, ICD10: G58.9 - will follow 6. Benign prostatic hyperplasia without lower urinary tract symptoms - ICD9: 600.00, ICD10: N40.0 - continue meds. Greg Wilson MD RTO in six months and prn. CNOV Observed: 01/28/2018 Status: COMPLETED Source: [place] 11:[address] [facility] REPOSITORY [facility] AMBERLY DUNBAR ([id number]) 1935 M Date Time Provider Department 01/28/18 11:20 AM GREG WILSON [facility] During your visit today, we recorded the following information about you: Temperature Pulse Blood pressure Weight 98.3 degrees 94/minute 130/72 109.8 kg Angelia Mulligan LPN 01/28/2018 11:55 AM Signed Patient here for cough and states that has had some shortness of breath. Cough is nonproductive but feels like needs to cough up. Uses albuterol in nebulizer PRN. Greg Wilson MD 01/28/2018 12:39 PM Signed Patient presents with: Cough HPI: Patient presents today for office visit for acute visit. Nursing Notes: Angelia Mulligan LPN 01/28/2018 11:55 AM Signed Patient here for cough and states that has had some shortness of breath. Cough is nonproductive but feels like needs to cough up. Uses albuterol in nebulizer PRN. Has been ill for several weeks and then some. Gets sick frequently. Not sure he ever gets rid of chronic phlegm. Had seen Jalen in November and gave him prednisone. He never got think the singulair. Never got his combivent. No fever or chills. No heatrburn. No sinus pressure or sore throat or ear pain. Did get allergy shots at one point. Quit those due to cost. if it costs too much, I'm going to . Has been on some antibiotics intermittently and steroids which helps. Has had a chest xray in July. Onco: still following with oncology. No weight loss or swollen glands. Seeing oncology in [place]. Cardio:Overall feels well. No chest pain or edema or palpitations. Saw cardio once. Does not have to follow with them. Gu: urination is stable. Has not changed. HYPERTENSION: bp is well controlled. No side effects. Using his cane/walker. No falls. Discussed his neuropathy. MEDICATIONS: Current Outpatient Prescriptions: hydroCHLOROthiazide (HYDRODIURIL, ESIDRIX) 25 mg tablet Take 1 tablet by mouth once daily. albuterol (PROVENTIL) 2.5 mg /3 mL (0.083 %) nebulizer solution Use 3 mL via nebulizer every 4 hours as needed for Wheezing/Shortness of Breath. Use over 5-15minutes. finasteride (PROSCAR) 5 mg tablet Take 1 tablet by mouth once daily. loratadine (CLARITIN) 10 mg tablet Take 1 tablet by mouth once daily. VIT A/VIT C/VIT E/ZINC/COPPER (ICAPS AREDS ORAL) Take 1 tablet by mouth twice daily. cholestyramine (QUESTRAN) 4 gram packet Take 1 Packet by mouth four times daily. DOCOSAHEXANOIC ACID/EPA (FISH OIL ORAL) Take by mouth. Xyebxpcucsgtd-Mfrvxznf-Haphuk (CENTRUM SILVER) tab Take 1 tablet by mouth once daily. Cholecalciferol, Vitamin D3, 1,000 unit cap Take 1 capsule by mouth once daily. aspirin, enteric coated (ADULT LOW DOSE ASPIRIN) 81 mg EC tablet Take 1 tablet by mouth once daily. fluticasone (FLONASE) 50 mcg/Actuation NASAL nasal spray One puff per nostril before lying down for bed. ALBUTEROL INHALATION Inhale as instructed. COMPOUNDED PRESCRIPTION Access IV port. Access implanted vascular access device (IVAD) as needed for flush. Flush IVAD with 10-20 ml NS and 5 ml heparin flush, every 4 weeks and PRN when IVAD not in use. 0.9% NaCl Access implanted vascular access device (IVAD) as needed for flush, blood draw or treatment.Flush IVAD with 10-20 mL NS every 4 weeks and PRN when IVAD not in use. heparin 100 unit/mL syrg Access implanted vascular access device (IVAD) as needed for flush, blood draw or treatment. Before de-accessing port, flush with 10-20ml normal saline and follow with 5 mL heparin (100 units/mL) (if no heparin allergy). De-access port on treatment completion. heparin 100 unit/mL syrg Access implanted vascular access device (IVAD) as needed for flush, blood draw or treatment. Before de-accessing port, flush with 10-20ml normal saline and follow with 5 mL heparin (100 units/mL) (if no heparin allergy). De-access port on treatment completion. 0.9% NaCl (NORMAL SALINE FLUSH) Inject 2-10 mL intravenously as needed (a 4 weeks via port). acetaminophen (TYLENOL) 325 mg tablet Take 650 mg by mouth every 6 hours as needed. nitroglycerin sublingual 0.4 mg SL tablet Dissolve 1 tablet under the tongue as needed. FOR CHEST PAIN. IF NO RELIEF CALL 911 No current facility-administered medications for this visit. 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 - HTN (hypertension) - Lymphoma (HCC) 2013 - Mitral valve disorders(424.0) - Mononeuritis of unspecified site Neuropathy - Snoring - Solar Lentigines 03/22/2012 PAST SURGICAL HISTORY Procedure Laterality Date - APPENDECTOMY 1949 - COLONOSCOP W/ OR W/O BRSH SPEC 09/17/1997 sigmoidoscopy - COLONOSCOP W/ OR W/O BRSH SPEC 05/06/1998 Colonoscopy - COLONOSCOP W/ OR W/O BRSH SPEC 12/17/14 Colonoscopy - COLONOSCOPY W/BX 01/31/14 No cecal cancer, - COLONOSCOPY W/BX 09/09/2016 anal irritation - CYSTO.PANENDO Cystoscopy - KNEE SCOPE,DIAGNOSTIC 1997 Arthroscopy, knee left, injury left knee laceration 1955 after A/A - LAP INC HERNIA REPAIR 08/25/2016 repaired with Vloc- no mesh due to inflammed gallbladder - LAP INC HERNIA REPAIR RECUR 03/15/[id number] mesh - LAPAROSCOPIC CHOLEYCYSTECTOMY 08/25/2016 acute on chronic inflammation - PAST SURGICAL HISTORY OF 1975 anal fissurectomy - PAST SURGICAL HISTORY OF 1981 laminectomy - PAST SURGICAL HISTORY OF 1994 sinus surgery - PAST SURGICAL HISTORY OF 1958 pilonodal cyst - PAST SURGICAL HISTORY OF 07/05/12 R total knee replacement - REMOVAL OF TONSILS,<12 Y/O Tonsillectomy - REMOVAL LUPE VAD W PORT/PUMP 12/2016 - REPAIR INCISIONAL HERNIA,REDUCIBLE 03/15/2017 Hernia repair, incisional ventral ST mesh [facility] - REPAIR UMBILICAL DONNA,5+Y/O,REDUC 2001 Hernia repair, umbilical >5yr - TOTAL KNEE REPLACEMENT 06/10/[address] Grimm FAMILY HISTORY Problem Relation Age of Onset - Heart Mother - Diabetes Maternal Grandmother - Hypertension Brother elevated cholesterol ? Social History Marital status: Spouse name: Years of education: Number of children: 2 Social History Main Topics Smoking status: Former Smoker Packs/day: 1.00 Years: 20.00 Types: Cigarettes Quit date: 05/10/1975 Smokeless tobacco: Never Used Alcohol use: Yes 1.0 oz/week Comment: ocas Drug use: No Sexual activity: Yes Partners with: Female Reviewed current medications, allergies, past medical history, surgical history, family history and social history today. REVIEW OF SYSTEMS GENERAL: No weight loss, malaise or fevers GI: Negative for change in bowel habit, using colestid for diarrhea. adjusts it. All other reviewed and negative other than HPI. HEALTH MAINTENANCE: Reviewed health maintenance issues today and recommended the following in detail. Cannot use flu shot VITALS: BP 130/72 Pulse 94 Temp 36.8 ?C (98.3 ?F) (Tympanic) Wt 109.8 kg (242 lb) SpO2 94% BMI 31.07 kg/m? Last 4 Encounter Wt Readings: Date: Wt: 01/28/2018 109.8 kg (242 lb) 11/15/2017 112.9 kg (249 lb) 03/02/2017 108.9 kg (240 lb) 02/09/2017 108.9 kg (240 lb) PHYSICAL EXAMINATION: General appearance: Well appearing, alert, in no acute distress, well-hydrated, well nourished. Skin: Skin color, texture, turgor normal, no suspicious rashes or lesions Head: Normocephalic, no masses, lesions, tenderness or abnormalities Eyes: Anicteric sclera. Pupils are equally round and reactive to light. Extraocular movements are intact. Ears: External ears normal, canals clear Nose/Sinuses: Nares normal, septum midline, mucosa normal, no drainage or sinus tenderness Oropharynx: Lips, mucosa, and tongue normal, teeth and gums normal, oropharynx normal Neck: supple Lungs: moving air well. Few scattered rhonchi. Clears with cough. Heart: RRR without murmur, gallop, or rubs. No ectopy Abdomen: Normal abdominal exam, Abdomen soft, non-tender. Bowel sounds normal. No masses, organomegaly Extremities: No deformities, edema, skin discoloration, clubbing or cyanosis. Good capillary refill. ASSESSMENT/PLAN: 1. Cough - ICD9: 786.2, ICD10: R05 (primary diagnosis) - does not want to add more inhalers. Use nebulizers. - SPIROMETRY - BASELINE AND POST DILATOR - CONSULT TO PULM/CRITICAL CARE 2. Chronic bronchitis, unspecified chronic bronchitis type (HCC) - ICD9: 491.9, ICD10: J42 - Call if symptoms worsen at all or if not better in one to two weeks - SPIROMETRY - BASELINE AND POST DILATOR - CONSULT TO PULM/CRITICAL CARE - PREDNISONE 20 MG TABLET - DOXYCYCLINE MONOHYDRATE 100 MG CAPSULE 3. CKD (chronic kidney disease) stage 3, GFR 30-59 ml/min ([facility]) - ICD9: 585.3, ICD10: N18.3 - avoid nsaids. 4. Essential hypertension - ICD9: 401.9, ICD10: I10 - good control - Continue current medication(s) - Goal of BP <130/80 5. Mononeuritis - ICD9: 355.9, ICD10: G58.9 - will follow 6. Benign prostatic hyperplasia without lower urinary tract symptoms - ICD9: 600.00, ICD10: N40.0 - continue meds. Greg Wilson MD RTO in six months and prn. Referring Provider: SELF [[id number]] Allergies As of Date: 01/28/2018 Noted Allergy Reaction DEMEROL (MEPERIDINE (PF)) 12/14/2014 11 - Vomiting DILTIAZEM 01/19/2011 14 - Other: See Comments Comments: stasis edema GABAPENTIN 06/16/2010 5 - Intolerance Comments: goofjohnny amaya LISINOPRIL 11/03/2010 3 - Cough Comments: cough AMPICILLIN 01/19/2005 5 - Intolerance Comments: rectal yeast NIACIN 01/19/2005 5 - Intolerance Comments: skin hot prickling Date Reviewed: 01/28/2018 Reviewed by: Angelia Mulligan LPN - Fully Assessed Reason for Visit: Cough [28] Primary Visit Diagnosis:Cough [R05] Other Visit Diagnoses:Chronic bronchitis, unspecified chronic bronchitis type (HCC) [J42] CKD (chronic kidney disease) stage 3, GFR 30-59 ml/min (HCC) [N18.3] Essential hypertension [I10] Mononeuritis [G58.9] Benign prostatic hyperplasia without lower urinary tract symptoms [N40.0] Order(s):SPIROMETRY - BASELINE AND POST DILATOR [[id number]] Order #: [id number] FUTURE CONSULT TO PULM/CRITICAL CARE [[id number]] Order #: [id number]: 1 predniSONE (DELTASONE) 20 mg tabletTake 1 tablet by mouth once daily for 5 days. Take daily with food.Disp: 5 tabletRfl: 0 doxycycline monohydrate (MONODOX) 100 mg capsuleTake 1 capsule by mouth twice daily.Disp: 20 capsuleRfl: 0 Prescriptions as of 01/28/2018 Sig: HYDROCHLOROTHIAZIDE 25 MG TAB* Take 1 tablet by mouth once d* ALBUTEROL SULFATE 2.5 MG/3 ML* Use 3 mL via nebulizer every * FINASTERIDE 5 MG TABLET Take 1 tablet by mouth once d* LORATADINE 10 MG TABLET Take 1 tablet by mouth once d* ICAPS AREDS ORAL Take 1 tablet by mouth twice * CHOLESTYRAMINE (WITH SUGAR) 4* Take 1 Packet by mouth four t* FISH OIL ORAL Take by mouth. HVNIVDTBUDXK-XBZYQGDN-EQAHMO * Take 1 tablet by mouth once d* CHOLECALCIFEROL (VITAMIN D3) * Take 1 capsule by mouth once * ASPIRIN 81 MG TABLET,DELAYED * Take 1 tablet by mouth once d* FLUTICASONE 50 MCG/ACTUATION * One puff per nostril before l* PREDNISONE 20 MG TABLET Take 1 tablet by mouth once d* DOXYCYCLINE MONOHYDRATE 100 M* Take 1 capsule by mouth twice* ALBUTEROL INHALATION Inhale as instructed. COMPOUNDED PRESCRIPTION Access IV port. Access impla* SODIUM CHLORIDE 0.9% FLUSH Access implanted vascular acc* HEPARIN LOCK FLUSH (PORCINE) * Access implanted vascular acc* HEPARIN LOCK FLUSH (PORCINE) * Access implanted vascular acc* SODIUM CHLORIDE 0.9 % INJECTI* Inject 2-10 mL intravenously * ACETAMINOPHEN 325 MG TABLET Take 650 mg by mouth every 6 * NITROGLYCERIN 0.4 MG SUBLINGU* Dissolve 1 tablet under the t* Problem List As Of Date 01/28/2018 Noted Resolved Pure hypercholesterolemia [E78.00] INVALID FOR* More... 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 NOCTURIA [R35.1] INVALID FOR* More... MITRAL VALVE DISORDER [I05.9] GENERAL OSTEOARTHROSIS [M15.9] Mononeuritis [G58.9] More... 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] INVALID FOR*06/22/2016 Other seborrheic dermatitis [L21.8] INVALID FOR*06/22/2016 Pruritus [L29.9] INVALID FOR*06/22/2016 Benign neoplasm of R upper eyelid [D23.10] INVALID FOR*06/22/2016 Skin tag [L91.8] INVALID FOR*01/29/2014 Scar condition and fibrosis of skin [L90.5] INVALID FOR*06/22/2016 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 Right leg DVT (HCC) [I82.401] INVALID FOR*06/22/2016 More... CKD (chronic kidney disease) stage 3, GFR 30-59*INVALID FOR* RBBB (right bundle branch block with left anter*INVALID FOR* Abdominal pain, unspecified site [R10.9] INVALID FOR*11/26/2016 Diffuse large B-cell lymphoma of intra-abdomina*INVALID FOR* More... 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 Abnormal ultrasound of gallbladder [R93.2] INVALID FOR*11/26/2016 Incisional hernia, without obstruction or gangr*INVALID FOR*11/26/2016 Generalized abdominal pain [R10.84] INVALID FOR*11/26/2016 Abdominal adhesions [K66.0] INVALID FOR*11/26/2016 Visit Notes: >> Angelia Mulligan LPN WedJan 28, 2018 11:43 AM Status: Signed Patient here for cough and states that has had some shortness of breath. Cough is nonproductive but feels like needs to cough up. Uses albuterol in nebulizer PRN. Prescriptions ordered this encounter Disp Refills Start End PREDNISONE 20 MG TABLET 5 ta* 0 01/28/2018 02/02/2018 Route: ORAL Sig: Take 1 tablet by mouth once daily for 5 days. Take daily with food. DOXYCYCLINE MONOHYDRATE 100 MG CAPSU* 20 c* 0 01/28/2018 Route: ORAL Sig: Take 1 capsule by mouth twice daily. Medications Discontinued During This Encounter ipratropium-albuterol (COMBIVENT RES* 1 Ca* 1 11/23/2017 01/28/2018 Route: INHALATION Sig: Inhale 1 Puff as instructed four times daily. Patient not taking: Reported on 01/28/2018 Disc: Reason for discontinue is not on file. montelukast (SINGULAIR) 10 mg tablet 90 t* 3 11/22/2017 01/28/2018 Route: ORAL Sig: Take 1 tablet by mouth daily at bedtime. Patient not taking: Reported on 01/28/2018 Disc: Reason for discontinue is not on file. polyethylene glycol 3350 (MIRALAX) 1* 1 Gage* 2 08/09/2016 01/28/2018 Route: ORAL Sig: Take 17 g by mouth once daily. Patient not taking: Reported on 01/28/2018 Disc: Reason for discontinue is not on file. amitriptyline (ELAVIL) 25 mg tablet 30 t* 5 07/23/2017 01/28/2018 Route: ORAL Sig: Take 1 tablet by mouth daily at bedtime. Patient not taking: Reported on 01/28/2018 Disc: Reason for discontinue is not on file. Disposition: Return in about 6 months (around 07/28/2018). Follow-up and Disposition History Recorded Encounter Status:Closed by GREG WILSON MD on 01/28/18 CMP Collected: 11/19/2017 Status: F Source: [facility] 9:45 AM [facility] REPOSITORY TYPE CODE TESTS RESULT OUT OF RANGE REFERENCE UNITS LAB [id number](L 70-99 mg/dL OINC) Glucose Normal Lvl 88 LAB [id number](L 8.4-10.2 mg/dL OINC) Calcium Normal Lvl 9.5 LAB [id number](L 136-145 mEq/L OINC) Sodium Normal Lvl 144 LAB [id number](L 3.5-5.1 mEq/L OINC) Normal Potassium Lvl 3.7 LAB 03703843(L 98-107 mEq/L OINC) Chloride Normal 106 LAB 47012561(L 24.0-30.0 mEq/L OINC) CO2 Normal 28.8 LAB 14856046(L 7-18 mg/dL OINC) High BUN 27 LAB 6647600(LO 0.6-1.3 mg/dL INC) High Creatinine 1.9 LAB [id number](L 42-121 Int._Unit/ OINC) L Alk Phos Normal 45 LAB 91536159(L 0.2-1.0 mg/dL OINC) Bili Normal Total 0.9 LAB 13861806(L 3.2-5.0 G/DL OINC) Albumin Normal Lvl 4.0 LAB [id number](L 6.4-8.3 G/DL OINC) Total Normal Protein 6.8 LAB 54143872(L 10-40 Int._Unit/ OINC) L ALT Normal 27 LAB 83428634(L 10-42 Int._Unit/ OINC) L AST Normal 27 LAB [id number](L 5.4-30.0 ratio OINC) Normal BUN/Creat Ratio 14.2 LAB 61890810(L 2.0-4.0 G/DL OINC) Globulin Normal 2.8 LAB 60001366(L 1.1-1.9 ratio OINC) A/G Normal Ratio 1.4 Performed By: #### [id number] #### [place] [address] CBC W/ AUTO DIFF Collected: 11/19/2017 Status: F Source: [facility] 9:45 AM [facility] REPOSITORY TYPE CODE TESTS RESULT OUT OF RANGE REFERENCE UNITS LAB [id number](L 3.6-11.0 E3/mcL OINC) High WBC 11.2 LAB [id number](L 3.90-6.10 E6/mcL OINC) Normal RBC 4.60 LAB 15829426(L 13.5-18.0 G/DL OINC) Normal Hgb 14.9 LAB [id number](L 42.0-52.0 % OINC) Normal Hct 44.8 LAB 27908224(L 11.5-14.5 % OINC) Normal RDW 13.9 LAB 85374987(L 27.0-31.0 pg OINC) High MCH 32.3 LAB 48781616(L 33.0-37.0 G/DL OINC) Normal MCHC 33.2 LAB 69481226(L 78.0-100.0 fL OINC) Normal MCV 97.4 LAB [id number](L 7.4-11.0 fL OINC) Normal MPV 8.3 LAB [id number](L 130-400 E3/mcL OINC) Normal Platelet 248 Performed By: #### [id number] #### [facility] [address] [id number] AUTO DIFF Collected: 11/19/2017 Status: F Source: [facility] 9:45 AM [facility] REPOSITORY Order Comment: Order Added by Discern Expert. TYPE CODE TESTS RESULT OUT OF RANGE REFERENCE UNITS LAB [id number](L 37.0-75.0 % OINC) Normal Neutro Auto 66.9 LAB [id number](L 20.0-55.0 % OINC) Normal Lymph Auto 20.3 LAB [id number](L 0.0-10.0 % OINC) Normal Wilkinson Auto 9.1 LAB 43610201(L 0.0-11.0 % OINC) Normal Eos Auto 3.0 LAB [id number](L 0.0-2.0 % OINC) Normal Basophil Auto 0.7 LAB 31026824(L 1.4-6.5 E3/mcL OINC) High Neutro 7.5 Absolute LAB 78903013(L 1.2-3.4 E3/mcL OINC) Normal Lymph Absolute 2.3 LAB 57152954(L 0.0-0.7 E3/mcL OINC) High Wilkinson Absolute 1.0 LAB [id number](L 0.0-0.7 E3/mcL OINC) Normal Eos Absolute 0.3 LAB 48153807(L 0.0-0.2 E3/mcL OINC) Normal Basophil 0.1 Absolute Performed By: #### [id number] #### [facility] [address] [place] [address] EGFR Collected: 11/19/2017 Status: F Source: [facility] 9:45 AM [facility] REPOSITORY Order Comment: Order added by Discern Expert. TYPE CODE TESTS RESULT OUT OF RANGE REFERENCE UNITS LAB [id number](LO mL/min/1.73 INC) m2 Normal eGFR 34 LAB [id number](LO mL/min/1.73 INC) m2 Normal eGFR AA 42 Performed By: #### [id number] #### [facility] [address] [id number] LDH Collected: 11/19/2017 Status: F Source: [facility] 9:45 AM [facility] REPOSITORY TYPE CODE TESTS RESULT OUT OF RANGE REFERENCE UNITS LAB [id number](LO 91-180 Int._Unit/L INC) Normal LDH 149 Performed By: #### [id number] #### [facility] [address] [place] [address] PROGRESS Observed: 11/15/2017 Status: COMPLETED Source: [place] 11:09 AM [facility] REPOSITORY HNO ID: [id number] Author: Yaron Pate (Eduardo) Gonzales Service: (none) Author Type: Physician Stepdown Nurse Type: Progress Notes Filed: 11/15/2017 8:28 PM Note Text: 81 year old male with c/o sinus congestion, coughing ropey phlegm, clear. Like undercooked spaghetti. Was here in July. Had prednisone and doxycycline which didn't completely resolve sx but helped. Dry cough, harsh, like a dog barking worse in last month. Worries he will hurt his hernia repair. Wheezes at night. Chest doesn't hurt unless coughing hard. Smoked 20 years x 1 PPD. Not in last 42 years. No hx pneumonia. Has had bronchitis in past. HISTORIES FAMILY HISTORY Problem Relation Age of Onset - Heart Mother - Diabetes Maternal Grandmother - Hypertension Brother elevated cholesterol ? 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 - Generalized osteoarthrosis, unspecified site - Guillain-Casscoe (HCC) 1986 - HTN (hypertension) - Lymphoma (HCC) 2013 - Mitral valve disorders(424.0) - Mononeuritis of unspecified site Neuropathy - Snoring - Solar Lentigines 03/22/2012 PAST SURGICAL HISTORY Procedure Laterality Date - APPENDECTOMY 194 - COLONOSCOP W/ OR W/O BRSH SPEC 09/17/1997 sigmoidoscopy - COLONOSCOP W/ OR W/O BRSH SPEC 05/06/1998 Colonoscopy - COLONOSCOP W/ OR W/O BRSH SPEC 12/17/14 Colonoscopy - COLONOSCOPY W/BX 01/31/14 No cecal cancer, - COLONOSCOPY W/BX 09/09/2016 anal irritation - CYSTO.PANENDO Cystoscopy - KNEE SCOPE,DIAGNOSTIC 1997 Arthroscopy, knee left, injury left knee laceration 1955 after A/A - LAP INC HERNIA REPAIR 08/25/2016 repaired with Vloc- no mesh due to inflammed gallbladder - LAP INC HERNIA REPAIR RECUR 03/15/[id number] mesh - LAPAROSCOPIC CHOLEYCYSTECTOMY 08/25/2016 acute on chronic inflammation - PAST SURGICAL HISTORY OF 1975 anal fissurectomy - PAST SURGICAL HISTORY OF 1981 laminectomy - PAST SURGICAL HISTORY OF 1994 sinus surgery - PAST SURGICAL HISTORY OF 1958 pilonodal cyst - PAST SURGICAL HISTORY OF 07/05/12 R total knee replacement - REMOVAL OF TONSILS,<12 Y/O Tonsillectomy - REMOVAL LUPE VAD W PORT/PUMP 12/2016 - REPAIR INCISIONAL HERNIA,REDUCIBLE 03/15/2017 Hernia repair, incisional ventral ST mesh [facility] - REPAIR UMBILICAL DONNA,5+Y/O,REDUC 2001 Hernia repair, umbilical >5yr - TOTAL KNEE REPLACEMENT 06/10/[address] 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) Generalized Osteoarthrosis, Unspecified Site Mononeuritis Benign Prostatic Hyperplasia Without Lower Urinary Tract Symptoms Osteoarthritis Hypertension Abnormality of 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 Disp: 90 tablet Rfl: 0 amitriptyline (ELAVIL) 25 mg tablet Take 1 tablet by mouth daily at bedtime. Disp: 30 tablet Rfl: 5 finasteride (PROSCAR) 5 mg tablet Take 1 tablet by mouth once daily. Disp: 90 tablet Rfl: 3 ALBUTEROL INHALATION Inhale as instructed. Disp: Rfl: loratadine (CLARITIN) 10 mg tablet Take 1 tablet by mouth once daily. Disp: 90 tablet Rfl: 3 VIT A/VIT C/VIT E/ZINC/COPPER (ICAPS AREDS ORAL) Take 1 tablet by mouth twice daily. Disp: Rfl: cholestyramine (QUESTRAN) 4 gram packet Take 1 Packet by mouth four times daily. Disp: 120 Packet Rfl: 6 polyethylene glycol 3350 (MIRALAX) 17 gram/dose powder Take 17 g by mouth once daily. Disp: 1 Bottle Rfl: 2 acetaminophen (TYLENOL) 325 mg tablet Take 650 mg by mouth every 6 hours as needed. Disp: Rfl: DOCOSAHEXANOIC ACID/EPA (FISH OIL ORAL) Take by mouth. Disp: Rfl: nitroglycerin sublingual 0.4 mg SL tablet Dissolve 1 tablet under the tongue as needed. FOR CHEST PAIN. IF NO RELIEF CALL 911 Disp: 25 Bottle of 25 Rfl: 2 Xlardplysccze-Fjfbfftk-Ozeymt (CENTRUM SILVER) tab Take 1 tablet by mouth once daily. Disp: 1 tablet Rfl: 0 Cholecalciferol, Vitamin D3, 1,000 unit cap Take 1 capsule by mouth once daily. Disp: Rfl: 0 aspirin, enteric coated (ADULT LOW DOSE ASPIRIN) 81 mg EC tablet Take 1 tablet by mouth once daily. Disp: 90 tablet Rfl: 3 fluticasone (FLONASE) 50 mcg/Actuation NASAL nasal spray One puff per nostril before lying down for bed. Disp: Rfl: 12 COMPOUNDED PRESCRIPTION Access IV port. Access implanted vascular access device (IVAD) as needed for flush. Flush IVAD with 10-20 ml NS and 5 ml heparin flush, every 4 weeks and PRN when IVAD not in use. Disp: 1 Each Rfl: 0 0.9% NaCl Access implanted vascular access device (IVAD) as needed for flush, blood draw or treatment.Flush IVAD with 10-20 mL NS every 4 weeks and PRN when IVAD not in use. Disp: 2 Syringe Rfl: 50 heparin 100 unit/mL syrg Access implanted vascular access device (IVAD) as needed for flush, blood draw or treatment. Before de-accessing port, flush with 10-20ml normal saline and follow with 5 mL heparin (100 units/mL) (if no heparin allergy). De-access port on treatment completion. Disp: 1 Syringe Rfl: 50 heparin 100 unit/mL syrg Access implanted vascular access device (IVAD) as needed for flush, blood draw or treatment. Before de-accessing port, flush with 10-20ml normal saline and follow with 5 mL heparin (100 units/mL) (if no heparin allergy). De-access port on treatment completion. Disp: 1 Syringe Rfl: 50 0.9% NaCl (NORMAL SALINE FLUSH) Inject 2-10 mL intravenously as needed (a 4 weeks via port). Disp: 10 mL Rfl: 12 No current facility-administered medications for this visit. DTAP,TDAP,TD(1 - Tdap) due on 11/21/1955 ZOSTER VACCINE (SHINGRIX)(1 of 2) due on 1986 EXAM: OBJECTIVE: BP 120/62 Pulse 72 Temp 36.9 ?C (98.4 ?F) (Tympanic) Resp 20 Wt 112.9 kg (249 lb) BMI 31.97 kg/m? General appearance: Pleasant Elderly overweight male in no acute distress. Patient does have a dry slightly wheezy cough. Very talkative. Respirations: regular, unlabored, no retractions. Speaking in full sentences. Color: pink to lips and nailbeds, normal turgor Skin: warm, dry, no unusual rashes or lesions Head: Normocephalic Eyes: sclerae and conjunctivae without injection or exudate, PERRLA, EOMI, corneal light reflex symmetric bilaterally Ears: Bilateral obstructive cerumen impactions with mild hearing loss. Warm tap water irrigation employed bilaterally with removal of wax done per nurse. On reexamination TM's are clear/ maldonado bilaterally with normal landmarks, no swelling or deformity ear canal or external ear Nose/Sinuses: Nose patent. No turbinate swelling. Active exudate: none. Maxillary and frontal sinuses nontender to percussion. Oropharynx: oral membranes are moist. Lips, mucosa, and tongue free from lesions. Gums without inflammation. Posterior pharynx no injection, no exudate, no tonsillar hypertrophy. Neck: Neck supple, no lymphadenopathy; thyroid without mass or tenderness. Chest: normally shaped, equal expansion with breaths. Lungs: Lungs clear to auscultation and percussion. No crackles or wheezes. Heart: RRR without murmur, gallop, or rubs. S1 and S2 normal. ASSESSMENT/PLAN: 1. Cough - ICD9: 786.2, ICD10: R05 (primary diagnosis) Education on cough, underlying reactive airway disease and bronchitis. We'll proceed with prednisone burst to see if it makes a difference. We'll add Singulair and follow over the next several weeks on progress. If not improving consider L ASA. - MONTELUKAST 10 MG TABLET - PREDNISONE 20 MG TABLET 2. Bilateral impacted cerumen - ICD9: 380.4, ICD10: H61.23 Advised to avoid use of Q-tips. Notify us of any drainage or discomfort. Follow-up when necessary EDUARDO MoralesOV Observed: 11/15/2017 Status: COMPLETED Source: [place] 10:[address] [facility] REPOSITORY Office Visit (FAMPWS) AMBERLY DUNBAR ([id number]) 1935 Yaron Date Time Provider Department 11/15/17 10:00 AM Yaron ROLON) FAMPWS During your visit today, we recorded the following information about you: Temperature Pulse Respiration Blood pressure 98.4 degrees 72/minute 20/minute 120/62 Weight 112.9 kg Yaron Rolon PA-C 11/15/2017 8:28 PM Signed 81 year old male with c/o sinus congestion, coughing ropey phlegm, clear. Like undercooked spaghetti. Was here in July. Had prednisone and doxycycline which didn't completely resolve sx but helped. Dry cough, harsh, like a dog barking worse in last month. Worries he will hurt his hernia repair. Wheezes at night. Chest doesn't hurt unless coughing hard. Smoked 20 years x 1 PPD. Not in last 42 years. No hx pneumonia. Has had bronchitis in past. HISTORIES FAMILY HISTORY Problem Relation Age of Onset - Heart Mother - Diabetes Maternal Grandmother - Hypertension Brother elevated cholesterol ? 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 - Generalized osteoarthrosis, unspecified site - Guillain-Casscoe (HCC) 1986 - HTN (hypertension) - Lymphoma (HCC) 2013 - Mitral valve disorders(424.0) - Mononeuritis of unspecified site Neuropathy - Snoring - Solar Lentigines 03/22/2012 PAST SURGICAL HISTORY Procedure Laterality Date - APPENDECTOMY 1948 - COLONOSCOP W/ OR W/O [facility] SPEC 09/17/1997 sigmoidoscopy - COLONOSCOP W/ OR W/O BRS SPEC 05/06/1998 Colonoscopy - COLONOSCOP W/ OR W/O BRS SPEC 12/17/14 Colonoscopy - COLONOSCOPY W/BX 01/31/14 No cecal cancer, - COLONOSCOPY W/BX 09/09/2016 anal irritation - CYSTO.PANENDO Cystoscopy - KNEE SCOPE,DIAGNOSTIC 1997 Arthroscopy, knee left, injury left knee laceration 1955 after A/A - LAP INC HERNIA REPAIR 08/25/2016 repaired with Vloc- no mesh due to inflammed gallbladder - LAP INC HERNIA REPAIR RECUR 03/15/[id number] mesh - LAPAROSCOPIC CHOLEYCYSTECTOMY 08/25/2016 acute on chronic inflammation - PAST SURGICAL HISTORY OF 1975 anal fissurectomy - PAST SURGICAL HISTORY OF 1981 laminectomy - PAST SURGICAL HISTORY OF 1994 sinus surgery - PAST SURGICAL HISTORY OF 1958 pilonodal cyst - PAST SURGICAL HISTORY OF 07/05/12 R total knee replacement - REMOVAL OF TONSILS,<12 Y/O Tonsillectomy - REMOVAL LUPE VAD W PORT/PUMP 12/2016 - REPAIR INCISIONAL HERNIA,REDUCIBLE 03/15/2017 Hernia repair, incisional ventral ST mesh [facility] - REPAIR UMBILICAL DONNA,5+Y/O,REDUC 2001 Hernia repair, umbilical >5yr - TOTAL KNEE REPLACEMENT 06/10/[address] 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) Generalized Osteoarthrosis, Unspecified Site Mononeuritis Benign Prostatic Hyperplasia Without Lower Urinary Tract Symptoms Osteoarthritis Hypertension Abnormality of 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 Disp: 90 tablet Rfl: 0 amitriptyline (ELAVIL) 25 mg tablet Take 1 tablet by mouth daily at bedtime. Disp: 30 tablet Rfl: 5 finasteride (PROSCAR) 5 mg tablet Take 1 tablet by mouth once daily. Disp: 90 tablet Rfl: 3 ALBUTEROL INHALATION Inhale as instructed. Disp: Rfl: loratadine (CLARITIN) 10 mg tablet Take 1 tablet by mouth once daily. Disp: 90 tablet Rfl: 3 VIT A/VIT C/VIT E/ZINC/COPPER (ICAPS AREDS ORAL) Take 1 tablet by mouth twice daily. Disp: Rfl: cholestyramine (QUESTRAN) 4 gram packet Take 1 Packet by mouth four times daily. Disp: 120 Packet Rfl: 6 polyethylene glycol 3350 (MIRALAX) 17 gram/dose powder Take 17 g by mouth once daily. Disp: 1 Bottle Rfl: 2 acetaminophen (TYLENOL) 325 mg tablet Take 650 mg by mouth every 6 hours as needed. Disp: Rfl: DOCOSAHEXANOIC ACID/EPA (FISH OIL ORAL) Take by mouth. Disp: Rfl: nitroglycerin sublingual 0.4 mg SL tablet Dissolve 1 tablet under the tongue as needed. FOR CHEST PAIN. IF NO RELIEF CALL 911 Disp: 25 Bottle of 25 Rfl: 2 Vqrgfqcmpybdl-Uxknygtw-Fwoofo (CENTRUM SILVER) tab Take 1 tablet by mouth once daily. Disp: 1 tablet Rfl: 0 Cholecalciferol, Vitamin D3, 1,000 unit cap Take 1 capsule by mouth once daily. Disp: Rfl: 0 aspirin, enteric coated (ADULT LOW DOSE ASPIRIN) 81 mg EC tablet Take 1 tablet by mouth once daily. Disp: 90 tablet Rfl: 3 fluticasone (FLONASE) 50 mcg/Actuation NASAL nasal spray One puff per nostril before lying down for bed. Disp: Rfl: 12 COMPOUNDED PRESCRIPTION Access IV port. Access implanted vascular access device (IVAD) as needed for flush. Flush IVAD with 10-20 ml NS and 5 ml heparin flush, every 4 weeks and PRN when IVAD not in use. Disp: 1 Each Rfl: 0 0.9% NaCl Access implanted vascular access device (IVAD) as needed for flush, blood draw or treatment.Flush IVAD with 10-20 mL NS every 4 weeks and PRN when IVAD not in use. Disp: 2 Syringe Rfl: 50 heparin 100 unit/mL syrg Access implanted vascular access device (IVAD) as needed for flush, blood draw or treatment. Before de-accessing port, flush with 10-20ml normal saline and follow with 5 mL heparin (100 units/mL) (if no heparin allergy). De-access port on treatment completion. Disp: 1 Syringe Rfl: 50 heparin 100 unit/mL syrg Access implanted vascular access device (IVAD) as needed for flush, blood draw or treatment. Before de-accessing port, flush with 10-20ml normal saline and follow with 5 mL heparin (100 units/mL) (if no heparin allergy). De-access port on treatment completion. Disp: 1 Syringe Rfl: 50 0.9% NaCl (NORMAL SALINE FLUSH) Inject 2-10 mL intravenously as needed (a 4 weeks via port). Disp: 10 mL Rfl: 12 No current facility-administered medications for this visit. DTAP,TDAP,TD(1 - Tdap) due on 11/21/1955 ZOSTER VACCINE (SHINGRIX)(1 of 2) due on 1986 EXAM: OBJECTIVE: BP 120/62 Pulse 72 Temp 36.9 ?C (98.4 ?F) (Tympanic) Resp 20 Wt 112.9 kg (249 lb) BMI 31.97 kg/m? General appearance: Pleasant Elderly overweight male in no acute distress. Patient does have a dry slightly wheezy cough. Very talkative. Respirations: regular, unlabored, no retractions. Speaking in full sentences. Color: pink to lips and nailbeds, normal turgor Skin: warm, dry, no unusual rashes or lesions Head: Normocephalic Eyes: sclerae and conjunctivae without injection or exudate, PERRLA, EOMI, corneal light reflex symmetric bilaterally Ears: Bilateral obstructive cerumen impactions with mild hearing loss. Warm tap water irrigation employed bilaterally with removal of wax done per nurse. On reexamination TM's are clear/ maldonado bilaterally with normal landmarks, no swelling or deformity ear canal or external ear Nose/Sinuses: Nose patent. No turbinate swelling. Active exudate: none. Maxillary and frontal sinuses nontender to percussion. Oropharynx: oral membranes are moist. Lips, mucosa, and tongue free from lesions. Gums without inflammation. Posterior pharynx no injection, no exudate, no tonsillar hypertrophy. Neck: Neck supple, no lymphadenopathy; thyroid without mass or tenderness. Chest: normally shaped, equal expansion with breaths. Lungs: Lungs clear to auscultation and percussion. No crackles or wheezes. Heart: RRR without murmur, gallop, or rubs. S1 and S2 normal. ASSESSMENT/PLAN: 1. Cough - ICD9: 786.2, ICD10: R05 (primary diagnosis) Education on cough, underlying reactive airway disease and bronchitis. We'll proceed with prednisone burst to see if it makes a difference. We'll add Singulair and follow over the next several weeks on progress. If not improving consider L ASA. - MONTELUKAST 10 MG TABLET - PREDNISONE 20 MG TABLET 2. Bilateral impacted cerumen - ICD9: 380.4, ICD10: H61.23 Advised to avoid use of Q-tips. Notify us of any drainage or discomfort. Follow-up when necessary Yaron Rolon PA-C Referring Provider: SELF [[id number]] Allergies As of Date: 11/15/2017 Noted Allergy Reaction DEMEROL (MEPERIDINE (PF)) 12/14/2014 11 - Vomiting DILTIAZEM 01/19/2011 14 - Other: See Comments Comments: stasis edema GABAPENTIN 06/16/2010 5 - Intolerance Comments: case amaya LISINOPRIL 11/03/2010 3 - Cough Comments: cough AMPICILLIN 01/19/2005 5 - Intolerance Comments: rectal yeast NIACIN 01/19/2005 5 - Intolerance Comments: skin hot prickling Date Reviewed: 11/15/2017 Reviewed by: Cecy Ovalle LPN - Fully Assessed Reason for Visit: Post-nasal Drip [1168] Cmt: on going since Cough [28] Cmt: dry at times productive causes abdominal pain at times Reason For Visit History Recorded Primary Visit Diagnosis:Cough [R05] Other Visit Diagnosis:Bilateral impacted cerumen [H61.23] Order(s):montelukast (SINGULAIR) 10 mg tabletTake 1 tablet by mouth daily at bedtime.Disp: 30 tabletRfl: 2 predniSONE (DELTASONE) 20 mg tabletTake 2 tablets by mouth once daily for 5 days.Disp: 10 tabletRfl: 0 Prescriptions as of 11/15/2017 Sig: HYDROCHLOROTHIAZIDE 25 MG TAB* Take 1 tablet by mouth once d* AMITRIPTYLINE 25 MG TABLET Take 1 tablet by mouth daily * FINASTERIDE 5 MG TABLET Take 1 tablet by mouth once d* ALBUTEROL INHALATION Inhale as instructed. LORATADINE 10 MG TABLET Take 1 tablet by mouth once d* ICAPS AREDS ORAL Take 1 tablet by mouth twice * CHOLESTYRAMINE (WITH SUGAR) 4* Take 1 Packet by mouth four t* POLYETHYLENE GLYCOL 3350 17 G* Take 17 g by mouth once daily. ACETAMINOPHEN 325 MG TABLET Take 650 mg by mouth every 6 * FISH OIL ORAL Take by mouth. NITROGLYCERIN 0.4 MG SUBLINGU* Dissolve 1 tablet under the t* HBCRAXEWHQRI-KCLWHPWD-ERZXAU * Take 1 tablet by mouth once d* CHOLECALCIFEROL (VITAMIN D3) * Take 1 capsule by mouth once * ASPIRIN 81 MG TABLET,DELAYED * Take 1 tablet by mouth once d* FLUTICASONE 50 MCG/ACTUATION * One puff per nostril before l* MONTELUKAST 10 MG TABLET Take 1 tablet by mouth daily * PREDNISONE 20 MG TABLET Take 2 tablets by mouth once * COMPOUNDED PRESCRIPTION Access IV port. Access impla* SODIUM CHLORIDE 0.9% FLUSH Access implanted vascular acc* HEPARIN LOCK FLUSH (PORCINE) * Access implanted vascular acc* HEPARIN LOCK FLUSH (PORCINE) * Access implanted vascular acc* SODIUM CHLORIDE 0.9 % INJECTI* Inject 2-10 mL intravenously * Problem List As Of Date 11/15/2017 Noted Resolved Pure hypercholesterolemia [E78.00] INVALID FOR* More... 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 NOCTURIA [R35.1] INVALID FOR* More... MITRAL VALVE DISORDER [I05.9] GENERAL OSTEOARTHROSIS [M15.9] Mononeuritis [G58.9] More... 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] INVALID FOR*06/22/2016 Other seborrheic dermatitis [L21.8] INVALID FOR*06/22/2016 Pruritus [L29.9] INVALID FOR*06/22/2016 Benign neoplasm of R upper eyelid [D23.10] INVALID FOR*06/22/2016 Skin tag [L91.8] INVALID FOR*01/29/2014 Scar condition and fibrosis of skin [L90.5] INVALID FOR*06/22/2016 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 Right leg DVT (HCC) [I82.401] INVALID FOR*06/22/2016 More... CKD (chronic kidney disease) stage 3, GFR 30-59*INVALID FOR* RBBB (right bundle branch block with left anter*INVALID FOR* Abdominal pain, unspecified site [R10.9] INVALID FOR*11/26/2016 Diffuse large B-cell lymphoma of intra-abdomina*INVALID FOR* More... 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 Abnormal ultrasound of gallbladder [R93.2] INVALID FOR*11/26/2016 Incisional hernia, without obstruction or gangr*INVALID FOR*11/26/2016 Generalized abdominal pain [R10.84] INVALID FOR*11/26/2016 Abdominal adhesions [K66.0] INVALID FOR*11/26/2016 Prescriptions ordered this encounter Disp Refills Start End MONTELUKAST 10 MG TABLET 30 t* 2 11/15/2017 Route: ORAL Sig: Take 1 tablet by mouth daily at bedtime. PREDNISONE 20 MG TABLET 10 t* 0 11/15/2017 2017 Route: ORAL Sig: Take 2 tablets by mouth once daily for 5 days. Letter Text [facility] Department of Family Medicine [address] [address] 11/15/2017 THIS IS A PRESCRIPTION FOR HANDICAPPED PARKING PERMIT Re: Amberly Dunbar [address] [place] [address] The above named person requires a disability parking placard. DURATION: LIFETIME EXPIRATION: DATE + 5 YEARS Sincerely, Wendy Rolon PA-C Encounter Status:Closed by Yaron ROLON PA-C on 11/15/17 BASIC METABOLIC Collected: 10/25/2017 Status: F Source: [place] PROFILE (BMP) 8:29 AM [facility] REPOSITORY TYPE CODE TESTS RESULT OUT OF RANGE REFERENCE UNITS LAB L501.0100 74-106 mg/dL Normal GLU 83 Result Comment: Please note revised GLUCOSE reference range effective 2017. LAB L501.1000 7-18 mg/dL High BUN 24 LAB L501.1100 0.70-1.30 mg/dL High CREAT,SERUM 1.98 Result Comment: The validity of the calculated GFR AND GFRAA in patients over 70 years has not been determined. Clinical correlation is essential. LAB L501.1110 >60 mL/min Low EST GFR 35 Result Comment: Non- GFR Calc LAB L501.1115 >60 mL/min Low EST GFR - AA 42 Result Comment: GFR Calc LAB L501.1300 10-20 RATIO Normal BUN/CRE 12.1 LAB L501.2200 8.5-10.1 mg/dL Low CA 8.4 LAB L501.5300 136-145 mmol/L NA Normal 143 LAB L501.5600 3.5-5.1 mmol/L K Normal 3.8 LAB L501.5900 98-107 mmol/L High CL 109 LAB L501.6100 21.0-32.0 mmol/L Normal CO2 24.0 LAB L501.6200 5-15 Normal GAP 10 Performed By: #### L500.2500 #### [facility] [address] [place], [address] BASIC METABOLIC Collected: 10/05/2017 Status: F Source: [place] PROFILE ([facility]) 9:12 AM [facility] REPOSITORY TYPE CODE TESTS RESULT OUT OF RANGE REFERENCE UNITS LAB L501.0100 74-106 mg/dL Normal GLU 77 Result Comment: Please note revised GLUCOSE reference range effective 2017. LAB L501.1000 7-18 mg/dL Normal BUN 17 LAB L501.1100 0.70-1.30 mg/dL High CREAT,SERUM 1.94 Result Comment: The validity of the calculated GFR AND GFRAA in patients over 70 years has not been determined. Clinical correlation is essential. LAB L501.1110 >60 mL/min Low EST GFR 36 Result Comment: Non- GFR Calc LAB L501.1115 >60 mL/min Low EST GFR - AA 43 Result Comment: GFR Calc LAB L501.1300 10-20 RATIO Low BUN/CRE 8.8 LAB L501.2200 8.5-10.1 mg/dL Normal CA 8.9 LAB L501.5300 136-145 mmol/L Normal NA 142 LAB L501.5600 3.5-5.1 mmol/L Normal K 3.9 LAB L501.5900 98-107 mmol/L Normal CL 103 LAB L501.6100 21.0-32.0 mmol/L Normal CO2 27.0 LAB L501.6200 5-15 Normal GAP 12 Performed By: #### L500.2500 #### [facility] [place], [address] XR CHEST 2V FRONTAL/LAT Observed: 07/23/2017 Status: F Source: [place] 2:[address] [facility] REPOSITORY * * *Final Report* * * DATE OF EXAM: Jul 23 2017 2:00PM WOX [id number] - XR CHEST 2V FRONTAL/LAT / PROCEDURE REASON: Bronchitis, not specified as acute or chronic * * * * Physician Interpretation * * * * EXAMINATION: CHEST RADIOGRAPH (2 VIEW FRONTAL and LATERAL) Clinical History: Bronchitis, not specified as acute or chronic MQ: XC2_4 Comparison: Comparison is made to prior chest dated 30 December 2016 RESULT: Lines, tubes, and devices: None. Lungs and pleura: There is no focal consolidation or acute pleural process. There is no overt pulmonary edema. Cardiomediastinal silhouette: Normal cardiomediastinal silhouette. Other: The visualized bony structures are intact IMPRESSION: Stable chest. No acute cardiopulmonary process. Central Control Room Operator: PSCB Transcribe Date/Time: Jul 23 2017 4:20P Dictated by : PAYAL GALLOWAY MD This examination was interpreted and the report reviewed and electronically signed by: PAYAL GALLOWAY MD on Jul 23 2017 4:21PM EST [id number] PROGRESS Observed: 07/23/2017 Status: COMPLETED Source: [place] 1:[address] [facility] REPOSITORY HNO ID: [id number] Author: Timothy East (Rt) Service: (none) Author Type: Stre[employer] Buildings Decorator Type: Progress Notes Filed: 07/23/2017 2:00 PM Note Text: Radiology Service Progress Note PATIENT NAME: Amberly Dunbar DATE OF SERVICE: July 23, 2017 TIME: 1:45 PM PATIENT IDENTITY VERIFICATION COMPLETED USING TWO (2) METHODS: Patient confirmed name verbally and Date of . PATIENT GENDER DATA: Male PATIENT RELEVANT IMPLANT DATA REVIEWED: Not Applicable RADIOLOGY DEPARTMENT: General X-ray: Exam(s) Completed: Chest X-Ray PERIPHERAL IV DATA: Not applicable SIGNED BY: RT Cruzito July 23, 2017 1:45 PM PROGRESS Observed: 07/23/2017 Status: COMPLETED Source: [place] 1:17 PM [facility] REPOSITORY O ID: [id number] Author: Greg Wilson Service: (none) Author Type: Physician Type: Progress Notes Filed: 07/23/2017 1:35 PM Note Text: Patient presents with: Cough HPI: Patient presents today for office visit for an acute visit. Nursing Notes: Abby Fontana Ma 07/23/2017 12:41 PM Signed Patient presents today complaining of increased cough. Duration: on an off since about beginning of year. Cough is productive:YES. Fever: :No. Sore throat :No. Ear Pain :YES, left. CHEST DISCOMFORT: yes SHORTNESS OF BREATH: Yes - with exertion WHEEZING: Yes - but no history of asthma SPUTUM PRODUCTION: Clear OVER THE COUNTER MEDICATION PATIENT IS TAKING: Patient is using claritin Has been on and off for several months. Feels wheezy at times. Some sinus issues. CARDIO:saw Dr. Ny prior to surgery. Overall doing well. No chest pain. No swelling. ONCO:labs are stable. Just saw oncology Insomnia:has occasional insomnia. Still has some issues with neuropathy. CKD: labs are stable. MEDICATIONS: Current Outpatient Prescriptions: finasteride (PROSCAR) 5 mg tablet Take 1 tablet by mouth once daily. naproxen (NAPROSYN) 500 mg tablet Take 1 tablet by mouth twice daily with meals. FOR PAIN. TAKE WITH FOOD. ALBUTEROL INHALATION Inhale as instructed. loratadine (CLARITIN) 10 mg tablet Take 1 tablet by mouth once daily. VIT A/VIT C/VIT E/ZINC/COPPER (ICAPS AREDS ORAL) Take 1 tablet by mouth twice daily. cholestyramine (QUESTRAN) 4 gram packet Take 1 Packet by mouth four times daily. polyethylene glycol 3350 (MIRALAX) 17 gram/dose powder Take 17 g by mouth once daily. hydroCHLOROthiazide (HYDRODIURIL, ESIDRIX) 25 mg tablet Take 1 tablet by mouth once daily. temazepam (RESTORIL) 15 mg cap Take 1 capsule by mouth at bedtime as needed. DOCOSAHEXANOIC ACID/EPA (FISH OIL ORAL) Take by mouth. nitroglycerin sublingual 0.4 mg SL tablet Dissolve 1 tablet under the tongue as needed. FOR CHEST PAIN. IF NO RELIEF CALL 911 Pkkggqomflpif-Omozvnpi-Cajqvn (CENTRUM SILVER) tab Take 1 tablet by mouth once daily. Cholecalciferol, Vitamin D3, 1,000 unit cap Take 1 capsule by mouth once daily. aspirin, enteric coated (ADULT LOW DOSE ASPIRIN) 81 mg EC tablet Take 1 tablet by mouth once daily. fluticasone (FLONASE) 50 mcg/Actuation NASAL nasal spray One puff per nostril before lying down for bed. COMPOUNDED PRESCRIPTION Access IV port. Access implanted vascular access device (IVAD) as needed for flush. Flush IVAD with 10-20 ml NS and 5 ml heparin flush, every 4 weeks and PRN when IVAD not in use. 0.9% NaCl Access implanted vascular access device (IVAD) as needed for flush, blood draw or treatment.Flush IVAD with 10-20 mL NS every 4 weeks and PRN when IVAD not in use. heparin 100 unit/mL syrg Access implanted vascular access device (IVAD) as needed for flush, blood draw or treatment. Before de-accessing port, flush with 10-20ml normal saline and follow with 5 mL heparin (100 units/mL) (if no heparin allergy). De-access port on treatment completion. heparin 100 unit/mL syrg Access implanted vascular access device (IVAD) as needed for flush, blood draw or treatment. Before de-accessing port, flush with 10-20ml normal saline and follow with 5 mL heparin (100 units/mL) (if no heparin allergy). De-access port on treatment completion. 0.9% NaCl (NORMAL SALINE FLUSH) Inject 2-10 mL intravenously as needed (a 4 weeks via port). acetaminophen (TYLENOL) 325 mg tablet Take 650 mg by mouth every 6 hours as needed. No current facility-administered medications for this visit. 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 - Generalized osteoarthrosis, unspecified site - Guillain-Casscoe (HCC) 1986 - HTN (hypertension) - Lymphoma (HCC) 2013 - Mitral valve disorders(424.0) - Mononeuritis of unspecified site Neuropathy - Snoring - Solar Lentigines 03/22/2012 PAST SURGICAL HISTORY Procedure Laterality Date - APPENDECTOMY 1949 - COLONOSCOP W/ OR W/O BRSH SPEC 09/17/1997 sigmoidoscopy - COLONOSCOP W/ OR W/O BRSH SPEC 05/06/1998 Colonoscopy - COLONOSCOP W/ OR W/O BRSH SPEC 12/17/14 Colonoscopy - COLONOSCOPY W/BX 01/31/14 No cecal cancer, - COLONOSCOPY W/BX 09/09/2016 anal irritation - CYSTO.PANENDO Cystoscopy - KNEE SCOPE,DIAGNOSTIC 1997 Arthroscopy, knee left, injury left knee laceration 1955 after A/A - LAP INC HERNIA REPAIR 08/25/2016 repaired with Vloc- no mesh due to inflammed gallbladder - LAP INC HERNIA REPAIR RECUR 03/15/[id number] mesh - LAPAROSCOPIC CHOLEYCYSTECTOMY 08/25/2016 acute on chronic inflammation - PAST SURGICAL HISTORY OF 1975 anal fissurectomy - PAST SURGICAL HISTORY OF 1981 laminectomy - PAST SURGICAL HISTORY OF 1994 sinus surgery - PAST SURGICAL HISTORY OF 1958 pilonodal cyst - PAST SURGICAL HISTORY OF 07/05/12 R total knee replacement - REMOVAL OF TONSILS,<12 Y/O Tonsillectomy - REMOVAL LUPE VAD W PORT/PUMP 12/2016 - REPAIR INCISIONAL HERNIA,REDUCIBLE 03/15/2017 Hernia repair, incisional ventral ST mesh [facility] - REPAIR UMBILICAL DONNA,5+Y/O,REDUC 2001 Hernia repair, umbilical >5yr - TOTAL KNEE REPLACEMENT 06/10/[address] Grimm FAMILY HISTORY Problem Relation Age of Onset - Heart Mother - Diabetes Maternal Grandmother - Hypertension Brother elevated cholesterol ? Social History Marital status: Spouse name: Years of education: Number of children: 2 Social History Main Topics Smoking status: Former Smoker Packs/day: 1.00 Years: 20.00 Types: Cigarettes Quit date: 05/10/1975 Alcohol use: Yes 1.0 oz/week Comment: ocas Drug use: No Sexual activity: Yes Partners with: Female Reviewed current medications, allergies, past medical history, surgical history, family history and social history today. REVIEW OF SYSTEMS All other reviewed and negative other than HPI. HEALTH MAINTENANCE: Reviewed health maintenance issues today and recommended the following in detail. VITALS: BP 128/72 Pulse 103 Temp 37.3 ?C (99.2 ?F) SpO2 96% Last 4 Encounter Wt Readings: Date: Wt: 03/02/2017 108.9 kg (240 lb) 02/09/2017 108.9 kg (240 lb) 12/30/2016 112.9 kg (249 lb) 07/02/2016 108.9 kg (240 lb) PHYSICAL EXAMINATION: General appearance: Well appearing, alert, in no acute distress, well-hydrated, well nourished. Skin: Skin color, texture, turgor normal, no suspicious rashes or lesions Head: Normocephalic, no masses, lesions, tenderness or abnormalities Ears: External ears normal, canals clear Nose/Sinuses: Nares normal, septum midline, mucosa normal, no drainage or sinus tenderness Oropharynx: Lips, mucosa, and tongue normal, teeth and gums normal, oropharynx normal Neck: Supple, no adenopathy; thyroid symmetric, normal size, no bruits Lungs: Lungs clear to auscultation. No wheezing, rhonchi, rales Heart: RRR without murmur, gallop, or rubs. No ectopy Abdomen: Normal abdominal exam, Abdomen soft, non-tender. Bowel sounds normal. No masses, organomegaly Extremities: No deformities, edema, skin discoloration, clubbing or cyanosis. Good capillary refill. ASSESSMENT/PLAN: 1. Neuropathy (HCC) - ICD9: 355.9, ICD10: G62.9 (primary diagnosis) - Discussed risks and benefits of new medication with the patient. Advised them to call if any side effects or questions. - AMITRIPTYLINE 25 MG TABLET 2. 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 Pure hypercholesterolemia - ICD9: 272.0, ICD10: E78.00 - good control - Continue current medication. 4. Essential hypertension - ICD9: 401.9, ICD10: I10 - good control - Continue current medication(s) - Goal of BP <140/90 5. CKD (chronic kidney disease) stage 3, GFR 30-59 ml/min - ICD9: 585.3, ICD10: N18.3 - follow labs. To nephro if worsens. 6. 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 Bronchitis - ICD9: 490, ICD10: J40 - Discussed risks and benefits of new medication with the patient. Advised them to call if any side effects or questions. - Red flags for re-assessment reviewed with patient in detail. - Call if symptoms worsen at all or if not better in one to two weeks - XR CHEST 2V FRONTAL/LAT - DOXYCYCLINE MONOHYDRATE 100 MG TABLET - PREDNISONE 20 MG TABLET Greg Wilson MD CNOV Observed: 07/23/2017 Status: COMPLETED Source: [place] 12:[address] [facility] REPOSITORY [facility] AMBERLY DUNBAR ([id number]) 1935 M Date Time Provider Department 07/23/17 12:20 PM GREG WILSON [facility] During your visit today, we recorded the following information about you: Temperature Pulse Blood pressure 99.2 degrees 103/minute 128/72 Abby Fontana Ma 07/23/2017 12:41 PM Signed Patient presents today complaining of increased cough. Duration: on an off since about beginning of year. Cough is productive:YES. Fever: :No. Sore throat :No. Ear Pain :YES, left. CHEST DISCOMFORT: yes SHORTNESS OF BREATH: Yes - with exertion WHEEZING: Yes - but no history of asthma SPUTUM PRODUCTION: Clear OVER THE COUNTER MEDICATION PATIENT IS TAKING: Patient is using claritin Greg Wilson MD 07/23/2017 1:35 PM Signed Patient presents with: Cough HPI: Patient presents today for office visit for an acute visit. Nursing Notes: Abby Fontana Ma 07/23/2017 12:41 PM Signed Patient presents today complaining of increased cough. Duration: on an off since about beginning of year. Cough is productive:YES. Fever: :No. Sore throat :No. Ear Pain :YES, left. CHEST DISCOMFORT: yes SHORTNESS OF BREATH: Yes - with exertion WHEEZING: Yes - but no history of asthma SPUTUM PRODUCTION: Clear OVER THE COUNTER MEDICATION PATIENT IS TAKING: Patient is using claritin Has been on and off for several months. Feels wheezy at times. Some sinus issues. CARDIO:saw Dr. Ny prior to surgery. Overall doing well. No chest pain. No swelling. ONCO:labs are stable. Just saw oncology Insomnia:has occasional insomnia. Still has some issues with neuropathy. CKD: labs are stable. MEDICATIONS: Current Outpatient Prescriptions: finasteride (PROSCAR) 5 mg tablet Take 1 tablet by mouth once daily. naproxen (NAPROSYN) 500 mg tablet Take 1 tablet by mouth twice daily with meals. FOR PAIN. TAKE WITH FOOD. ALBUTEROL INHALATION Inhale as instructed. loratadine (CLARITIN) 10 mg tablet Take 1 tablet by mouth once daily. VIT A/VIT C/VIT E/ZINC/COPPER (ICAPS AREDS ORAL) Take 1 tablet by mouth twice daily. cholestyramine (QUESTRAN) 4 gram packet Take 1 Packet by mouth four times daily. polyethylene glycol 3350 (MIRALAX) 17 gram/dose powder Take 17 g by mouth once daily. hydroCHLOROthiazide (HYDRODIURIL, ESIDRIX) 25 mg tablet Take 1 tablet by mouth once daily. temazepam (RESTORIL) 15 mg cap Take 1 capsule by mouth at bedtime as needed. DOCOSAHEXANOIC ACID/EPA (FISH OIL ORAL) Take by mouth. nitroglycerin sublingual 0.4 mg SL tablet Dissolve 1 tablet under the tongue as needed. FOR CHEST PAIN. IF NO RELIEF CALL 911 Zuuntdpfjspzv-Lxadxszc-Xlqojw (CENTRUM SILVER) tab Take 1 tablet by mouth once daily. Cholecalciferol, Vitamin D3, 1,000 unit cap Take 1 capsule by mouth once daily. aspirin, enteric coated (ADULT LOW DOSE ASPIRIN) 81 mg EC tablet Take 1 tablet by mouth once daily. fluticasone (FLONASE) 50 mcg/Actuation NASAL nasal spray One puff per nostril before lying down for bed. COMPOUNDED PRESCRIPTION Access IV port. Access implanted vascular access device (IVAD) as needed for flush. Flush IVAD with 10-20 ml NS and 5 ml heparin flush, every 4 weeks and PRN when IVAD not in use. 0.9% NaCl Access implanted vascular access device (IVAD) as needed for flush, blood draw or treatment.Flush IVAD with 10-20 mL NS every 4 weeks and PRN when IVAD not in use. heparin 100 unit/mL syrg Access implanted vascular access device (IVAD) as needed for flush, blood draw or treatment. Before de-accessing port, flush with 10-20ml normal saline and follow with 5 mL heparin (100 units/mL) (if no heparin allergy). De-access port on treatment completion. heparin 100 unit/mL syrg Access implanted vascular access device (IVAD) as needed for flush, blood draw or treatment. Before de-accessing port, flush with 10-20ml normal saline and follow with 5 mL heparin (100 units/mL) (if no heparin allergy). De-access port on treatment completion. 0.9% NaCl (NORMAL SALINE FLUSH) Inject 2-10 mL intravenously as needed (a 4 weeks via port). acetaminophen (TYLENOL) 325 mg tablet Take 650 mg by mouth every 6 hours as needed. No current facility-administered medications for this visit. 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 - Generalized osteoarthrosis, unspecified site - Guillain-Casscoe (HCC) 1986 - HTN (hypertension) - Lymphoma (HCC) 2013 - Mitral valve disorders(424.0) - Mononeuritis of unspecified site Neuropathy - Snoring - Solar Lentigines 03/22/2012 PAST SURGICAL HISTORY Procedure Laterality Date - APPENDECTOMY 1949 - COLONOSCOP W/ OR W/O [facility] SPEC 09/17/1997 sigmoidoscopy - COLONOSCOP W/ OR W/O [facility] SPEC 05/06/1998 Colonoscopy - COLONOSCOP W/ OR W/O [facility] SPEC 12/17/14 Colonoscopy - COLONOSCOPY W/BX 01/31/14 No cecal cancer, - COLONOSCOPY W/BX 09/09/2016 anal irritation - CYSTO.PANENDO Cystoscopy - KNEE SCOPE,DIAGNOSTIC 1997 Arthroscopy, knee left, injury left knee laceration 1955 after A/A - LAP INC HERNIA REPAIR 08/25/2016 repaired with Vloc- no mesh due to inflammed gallbladder - LAP INC HERNIA REPAIR RECUR 03/15/[id number] mesh - LAPAROSCOPIC CHOLEYCYSTECTOMY 08/25/2016 acute on chronic inflammation - PAST SURGICAL HISTORY OF 1975 anal fissurectomy - PAST SURGICAL HISTORY OF 1981 laminectomy - PAST SURGICAL HISTORY OF 1994 sinus surgery - PAST SURGICAL HISTORY OF 1958 pilonodal cyst - PAST SURGICAL HISTORY OF 07/05/12 R total knee replacement - REMOVAL OF TONSILS,ANDlt;13 Y/O Tonsillectomy - REMOVAL LUPE VAD W PORT/PUMP 12/2016 - REPAIR INCISIONAL HERNIA,REDUCIBLE 03/15/2017 Hernia repair, incisional ventral ST mesh [facility] - REPAIR UMBILICAL DONNA,5+Y/O,REDUC 2001 Hernia repair, umbilical ANDgt;5yr - TOTAL KNEE REPLACEMENT 06/10/[address] Grimm FAMILY HISTORY Problem Relation Age of Onset - Heart Mother - Diabetes Maternal Grandmother - Hypertension Brother elevated cholesterol ? Social History Marital status: Spouse name: Years of education: Number of children: 2 Social History Main Topics Smoking status: Former Smoker Packs/day: 1.00 Years: 20.00 Types: Cigarettes Quit date: 05/10/1975 Alcohol use: Yes 1.0 oz/week Comment: ocas Drug use: No Sexual activity: Yes Partners with: Female Reviewed current medications, allergies, past medical history, surgical history, family history and social history today. REVIEW OF SYSTEMS All other reviewed and negative other than HPI. HEALTH MAINTENANCE: Reviewed health maintenance issues today and recommended the following in detail. VITALS: BP 128/72 Pulse 103 Temp 37.3 ?C (99.2 ?F) SpO2 96% Last 4 Encounter Wt Readings: Date: Wt: 03/02/2017 108.9 kg (240 lb) 02/09/2017 108.9 kg (240 lb) 12/30/2016 112.9 kg (249 lb) 07/02/2016 108.9 kg (240 lb) PHYSICAL EXAMINATION: General appearance: Well appearing, alert, in no acute distress, well-hydrated, well nourished. Skin: Skin color, texture, turgor normal, no suspicious rashes or lesions Head: Normocephalic, no masses, lesions, tenderness or abnormalities Ears: External ears normal, canals clear Nose/Sinuses: Nares normal, septum midline, mucosa normal, no drainage or sinus tenderness Oropharynx: Lips, mucosa, and tongue normal, teeth and gums normal, oropharynx normal Neck: Supple, no adenopathy; thyroid symmetric, normal size, no bruits Lungs: Lungs clear to auscultation. No wheezing, rhonchi, rales Heart: RRR without murmur, gallop, or rubs. No ectopy Abdomen: Normal abdominal exam, Abdomen soft, non-tender. Bowel sounds normal. No masses, organomegaly Extremities: No deformities, edema, skin discoloration, clubbing or cyanosis. Good capillary refill. ASSESSMENT/PLAN: 1. Neuropathy (HCC) - ICD9: 355.9, ICD10: G62.9 (primary diagnosis) - Discussed risks and benefits of new medication with the patient. Advised them to call if any side effects or questions. - AMITRIPTYLINE 25 MG TABLET 2. 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 Pure hypercholesterolemia - ICD9: 272.0, ICD10: E78.00 - good control - Continue current medication. 4. Essential hypertension - ICD9: 401.9, ICD10: I10 - good control - Continue current medication(s) - Goal of BP ANDlt;140/90 5. CKD (chronic kidney disease) stage 3, GFR 30-59 ml/min - ICD9: 585.3, ICD10: N18.3 - follow labs. To nephro if worsens. 6. 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 Bronchitis - ICD9: 490, ICD10: J40 - Discussed risks and benefits of new medication with the patient. Advised them to call if any side effects or questions. - Red flags for re-assessment reviewed with patient in detail. - Call if symptoms worsen at all or if not better in one to two weeks - XR CHEST 2V FRONTAL/LAT - DOXYCYCLINE MONOHYDRATE 100 MG TABLET - PREDNISONE 20 MG TABLET Greg Wilson MD Referring Provider: SELF [[id number]] Allergies As of Date: 07/23/2017 Noted Allergy Reaction DEMEROL (MEPERIDINE (PF)) 12/14/2014 11 - Vomiting DILTIAZEM 01/19/2011 14 - Other: See Comments Comments: stasis edema GABAPENTIN 06/16/2010 5 - Intolerance Comments: goofy groggy LISINOPRIL 11/03/2010 3 - Cough Comments: cough AMPICILLIN 01/19/2005 5 - Intolerance Comments: rectal yeast NIACIN 01/19/2005 5 - Intolerance Comments: skin hot prickling Date Reviewed: 03/24/2017 Reviewed by: Greg Borrego LPN - Fully Assessed Reason for Visit: Cough [28] Primary Visit Diagnosis:Neuropathy (HCC) [G62.9] Other Visit Diagnoses:Lymphoma of small bowel (HCC) [C85.93] Pure hypercholesterolemia [E78.00] Essential hypertension [I10] CKD (chronic kidney disease) stage 3, GFR 30-59 ml/min [N18.3] Diffuse large B-cell lymphoma of intra- abdominal lymph nodes (HCC) [C83.33] Bronchitis [J40] Order(s):amitriptyline (ELAVIL) 25 mg tabletTake 1 tablet by mouth daily at bedtime.Disp: 30 tabletRfl: 5 XR CHEST 2V FRONTAL/LAT [[id number]] Order #: [id number] FUTURE doxycycline monohydrate 100 mg tabletTake 1 tablet by mouth twice daily for 10 days.Disp: 20 tabletRfl: 0 predniSONE (DELTASONE) 20 mg tabletTake 1 tablet by mouth once daily for 5 days. Take daily with food.Disp: 5 tabletRfl: 0 Prescriptions as of 07/23/2017 Sig: FINASTERIDE 5 MG TABLET Take 1 tablet by mouth once d* NAPROXEN 500 MG TABLET Take 1 tablet by mouth twice * ALBUTEROL INHALATION Inhale as instructed. LORATADINE 10 MG TABLET Take 1 tablet by mouth once d* ICAPS AREDS ORAL Take 1 tablet by mouth twice * CHOLESTYRAMINE (WITH SUGAR) 4* Take 1 Packet by mouth four t* POLYETHYLENE GLYCOL 3350 17 G* Take 17 g by mouth once daily. HYDROCHLOROTHIAZIDE 25 MG TAB* Take 1 tablet by mouth once d* FISH OIL ORAL Take by mouth. NITROGLYCERIN 0.4 MG SUBLINGU* Dissolve 1 tablet under the t* [id number]-[id number]-[id number] * Take 1 tablet by mouth once d* CHOLECALCIFEROL (VITAMIN D3) * Take 1 capsule by mouth once * ASPIRIN 81 MG TABLET,DELAYED * Take 1 tablet by mouth once d* FLUTICASONE 50 MCG/ACTUATION * One puff per nostril before l* AMITRIPTYLINE 25 MG TABLET Take 1 tablet by mouth daily * DOXYCYCLINE MONOHYDRATE 100 M* Take 1 tablet by mouth twice * PREDNISONE 20 MG TABLET Take 1 tablet by mouth once d* COMPOUNDED PRESCRIPTION Access IV port. Access impla* SODIUM CHLORIDE 0.9% FLUSH Access implanted vascular acc* HEPARIN LOCK FLUSH (PORCINE) * Access implanted vascular acc* HEPARIN LOCK FLUSH (PORCINE) * Access implanted vascular acc* SODIUM CHLORIDE 0.9 % INJECTI* Inject 2-10 mL intravenously * ACETAMINOPHEN 325 MG TABLET Take 650 mg by mouth every 6 * Problem List As Of Date 07/23/2017 Noted Resolved Pure hypercholesterolemia [E78.00] INVALID FOR* More... 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 NOCTURIA [R35.1] INVALID FOR* More... MITRAL VALVE DISORDER [I05.9] GENERAL OSTEOARTHROSIS [M15.9] Mononeuritis [G58.9] More... 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] INVALID FOR*06/22/2016 Other seborrheic dermatitis [L21.8] INVALID FOR*06/22/2016 Pruritus [L29.9] INVALID FOR*06/22/2016 Benign neoplasm of R upper eyelid [D23.10] INVALID FOR*06/22/2016 Skin tag [L91.8] INVALID FOR*01/29/2014 Scar condition and fibrosis of skin [L90.5] INVALID FOR*06/22/2016 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 Right leg DVT (HCC) [I82.401] INVALID FOR*06/22/2016 More... CKD (chronic kidney disease) stage 3, GFR 30-59*INVALID FOR* RBBB (right bundle branch block with left anter*INVALID FOR* Abdominal pain, unspecified site [R10.9] INVALID FOR*11/26/2016 Diffuse large B-cell lymphoma of intra-abdomina*INVALID FOR* More... 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 Abnormal ultrasound of gallbladder [R93.2] INVALID FOR*11/26/2016 Incisional hernia, without obstruction or gangr*INVALID FOR*11/26/2016 Generalized abdominal pain [R10.84] INVALID FOR*11/26/2016 Abdominal adhesions [K66.0] INVALID FOR*11/26/2016 Visit Notes: >> Abby Fontana Ma WedJul 23, 2017 12:20 PM Status: Signed Patient presents today complaining of increased cough. Duration: on an off since about beginning of year. Cough is productive:YES. Fever: :No. Sore throat :No. Ear Pain :YES, left. CHEST DISCOMFORT: yes SHORTNESS OF BREATH: Yes - with exertion WHEEZING: Yes - but no history of asthma SPUTUM PRODUCTION: Clear OVER THE COUNTER MEDICATION PATIENT IS TAKING: Patient is using claritin Prescriptions ordered this encounter Disp Refills Start End AMITRIPTYLINE 25 MG TABLET 30 t* 5 07/23/2017 Route: ORAL Sig: Take 1 tablet by mouth daily at bedtime. DOXYCYCLINE MONOHYDRATE 100 MG TABLET 20 t* 0 07/23/2017 08/02/2017 Route: ORAL Sig: Take 1 tablet by mouth twice daily for 10 days. PREDNISONE 20 MG TABLET 5 ta* 0 07/23/2017 07/28/2017 Route: ORAL Sig: Take 1 tablet by mouth once daily for 5 days. Take daily with food. Medications Discontinued During This Encounter doxycycline monohydrate 100 mg tablet 20 t* 0 03/02/2017 07/23/2017 Route: ORAL Sig: Take 1 tablet by mouth twice daily. Disc: Reason for discontinue is not on file. oxyCODONE IR (ROXICODONE) 5 mg immed* 28 t* 0 03/22/2017 07/23/2017 Class: Print RX Route: ORAL Sig: Take 1 tablet by mouth every 4 hours as needed. Disc: Reason for discontinue is not on file. Cosign accepted by JAMAICA HUA MD[[id number]] on 03/22/2017 8:52 AM temazepam (RESTORIL) 15 mg cap 30 c* 2 06/22/2016 07/23/2017 Class: Print RX Route: ORAL Sig: Take 1 capsule by mouth at bedtime as needed. Disc: Reason for discontinue is not on file. Disposition: Return in about 6 months (around 01/23/2018). Follow-up and Disposition History Recorded Encounter Status:Closed by GREG WILSON MD on 07/23/17 ALLERGIES ALLERGIES DATE TYPE / NAME / CODE REACTION SEVERITY SOURCE CODE 02/21/2017 Drug lisinopril/[id number] cough Unknown [place] Allergy/41 658(RXNORM) [facility] [id number]([facility]) Repository 02/21/2017 Drug niacin/[id number]( FEELS LIKE ON Unknown [place] Allergy/41 RXNORM) FIRE [facility] [id number]([facility]) Repository 02/21/2017 Drug ampicillin/G037221 sore butt Unknown [place] Allergy/41 692(RXNORM) [facility] [id number]([facility]) Repository 02/21/2017 Drug erythromycin YEAST INFECTION Unknown [place] Allergy/41 base/[id number](RX Community [id number] [place] [address]) Repository 02/21/2017 Drug diltiazem/[id number] Unknown Unknown [place] Allergy/41 14(RXNORM) [facility] [id number]([facility]) Repository 02/21/2017 Drug meperidine/G910048 Nausea Unknown [place] Allergy/41 620(RXNORM) [facility] [id number]([facility]) Repository 12/14/2014 DRUG/74708 MEPERIDINE (PF) Vomiting High [facility] 1003(SNOME [address] [place] [address]) Repository 01/19/2011 DRUG DILTIAZEM OTHER: SEE C [place] [address] [address] [place] [id number](SN Repository OMED CT) 11/03/2010 DRUG LISINOPRIL COUGH [place] [address] [address] [place] [id number](SN Repository OMED [facility]) 06/16/2010 DRUG GABAPENTIN INTOLERANCE [place] [address] [address] [place] [id number](SN Repository OMED [facility]) 01/19/2005 DRUG AMPICILLIN INTOLERANCE Low [place] [address] [address] [place] [id number](SN Repository OMED [facility]) 01/19/2005 DRUG NIACIN INTOLERANCE Low [place] [address] [address] [place] [id number](SN Repository OMED CT) ENCOUNTERS ENCOUNTERS ADMIT/DISCHARGE ACCOUNT ADMITTING ENCOUNTER LOCATION SOURCE NUMBER CLASS 05/12/2018/05/13/[id number] [place] Repository 04/22/2018 [id number] [facility] ing:LAB.FUTUR Repository E 04/18/2018/04/21/[id number] [place] Repository 02/03/2018/02/05/[id number] Repository 01/28/2018/02/01/[id number] Repository 11/30/[id number] Repository 11/19/[id number] [facility] ing:CD:[id number] [facility] [address]Room: Repository CD:[id number] 11/15/2017/11/17/[id number] Repository 10/25/2017 [id number] [facility] ing:LAB.FUTUR Repository E 10/05/2017 [id number] [facility] ing:LAB.FUTUR Repository E 07/23/2017/07/24/[id number] Repository 07/23/2017/07/27/[id number] Repository PAYERS PAYERS ENCOUNTER GUARANTOR PAYER SUBSCRIBER SOURCE 04/22/2018 AMBERLY GARZA Primary AMBERLY R HALLDOB: [place] Insurance:[facility] [id number] [address], [place] [address]Spn: Number: Repository [id number] (HP) Date:3199-19-42[address] [facility] [place], [place] [address]JY: 04/22/2018 Secondary NOT GIVENUNK [place] Insurance:SELF PAY [facility] Number: Effective Repository Date:2018-04-21 11/30/2017 AMBERLY R HALLDOB: Primary AMBERLY R HALLDOB: [place] Insurance:[facility] [id number] Repository [address] [place] [address], Number: [address], [place] [address]Isf: [id number] [place] [id number]: Date:Plan (HP) Name:[facility] O Box (HP) [address] Citiesj[place], [place] [id number]: 11/19/2017 AMBERLY R HALLDOB: Primary AMBERLY R HALLDOB: [place] [facility] [id number] [place] [address] ROAD licy Number: [facility] [place] [place] System [address], Effective [address], Repository [place] Date:2017-11-19 - [place] [address]Neo: [id number] [id number]: Name:CD:[id number] BOX (HP) [facility] [place] (HP)Tel: [phone]: (wp) [phone] 10/25/2017 Amberly Garza Primary Amberly R HallDOB: [place] CR Insurance:[facility] [id number] Community [address], [place] [address]Clf: Number: Repository [id number] (HP) Date:0896-35-55[address] MED[facility] CENTER[place], [place] [address]CR: 10/25/2017 Secondary NOT GIVENUNK [place] Insurance:SELF PAY [facility] Number: Effective Repository Date:2017-10-06 10/05/2017 Amberly Garza Primary Amberly CarcamoB: [place] CR Insurance:[facility] [id number] Community [address], [place] [address]Hbm: Number: Repository [id number] () Date:7384-20-08[address], [place] [address]OQ: 10/05/2017 Secondary NOT GIVENUNK [place] Insurance:SELF PAY [facility] Number: Effective Repository Date:2017-09-30
== END ==
PROVIDERS: Family Provider Family Medicine; PCP Family Medicine; Referring Provider Physician Assistant; Visit Provider Physician Assistant
DX: I12.9 Hypertensive chronic kidney disease with stage 1 through stage 4 chronic kidney disease, or unspecified chronic kidney disease (principal); N18.3 Chronic kidney disease, stage 3 (moderate)
CPT/HCPCS: 36415; 80048

== ENCOUNTER → 2018-06-13 14:28 | Outpatient (CLI) | payer MEDICARE, SELFPAY ==
[2018-06-13 13:29] VITALS: BMI 31.8
[2018-06-13 15:09] LABS: Absolute Lymphocyte Count 1.43 X10^3/ul (0.83-4.51); Basophil# 0.17 X10^3/uL; Basophil% 1.8 % (0-1); Eosinophil# 1.37 X10^3/uL; Eosinophils% 14.1 % (0-5); Hematocrit 45.8 % (40-54); Hemoglobin 14.7 g/dl (13.0-16.5); Lymphocyte # 1.43 X10^3/ul (4.0); Lymphocyte % 14.7 % (19-41); Mean Corp Hgb Conc 32.1 g/gl (32-36); Mean Corpuscular Hgb 31.5 pg (27.0-32.0); Mean Corpuscular Volume 98.1 fL (80-94); Mean Platelet Vol. 10.1 fl (6.2-12.0); Monocyte# 0.72 X10^3/uL; Monocyte% 7.4 % (0-10); Neutrophil % 61.8 % (47-70); Platelet Count 216 K/mm3 (150-450); RBC Distribution Width CV 14.2 % (11.6-14.6); RBC Distribution Width SD 50.7 fl (35.1-43.9); Red Blood Count 4.67 M/mm3 (4.6-6.2); White Blood Count 9.7 K/mm3 (4.4-11.0)
[2018-06-13 15:14] LABS: POSITIVE COUNT NO; POSITIVE DIFFERENTIAL NO; POSITIVE MORPHOLOGY NO
[2018-06-16 12:18] LABS: Alternaria tenuis <0.10 kU/L (Class 0); Ash, White <0.10 kU/L (Class 0); Aspergillus fumigatus <0.10 kU/L (Class 0); Bermuda Grass <0.10 kU/L (Class 0); Birch <0.10 kU/L (Class 0); Black Walnut <0.10 kU/L (Class 0); Cat Hair / Dander,Stand <0.10 kU/L (Class 0); Cedar, Mountain 0.55 kU/L (Class I); Cladosporium herbarum <0.10 kU/L (Class 0); Cockroach, American <0.10 kU/L (Class 0); Cottonwood <0.10 kU/L (Class 0); D farinae Mite <0.10 kU/L (Class 0); D pteronyssinus <0.10 kU/L (Class 0); Dog Epithelia <0.10 kU/L (Class 0); Elm, American White <0.10 kU/L (Class 0); Immunoglobulin E 87 IU/mL (0-100); Maple/Box Elder <0.10 kU/L (Class 0); Mulberry, White <0.10 kU/L (Class 0); Oak, White <0.10 kU/L (Class 0); Pecan <0.10 kU/L (Class 0); Penicillium Notatum <0.10 kU/L (Class 0); Pigweed, Rough <0.10 kU/L (Class 0); Ragweed, Short/Common <0.10 kU/L (Class 0); Russian Thistle <0.10 kU/L (Class 0); Sheep Sorrel <0.10 kU/L (Class 0); Sycamore, American <0.10 kU/L (Class 0); Timothy Grass <0.10 kU/L (Class 0)
[2018-06-16 13:11] LABS: Mouse Urine <0.10 kU/L (Class 0)
== END ==
PROVIDERS: Family Provider Family Medicine; PCP Family Medicine; Visit Provider Internal Medicine Critical Care Medicine
DX: R05 Cough (principal)
CPT/HCPCS: 36415; 82785; 85025; 86003

== ENCOUNTER → 2018-06-15 10:42 | Outpatient (CLI) | payer MEDICARE, SELFPAY ==
[2018-06-13 13:29] VITALS: BMI 31.8
--- NOTE | 2018-06-15 10:47 | US_ITS ---
STUDY: RENAL ULTRASOUND - COMPLETE REASON FOR EXAM: Male, 82 years old. Chronic kidney disease TECHNIQUE: Ultrasound evaluation of the kidneys was performed with real-time and static waterman-scale imaging. COMPARISON: None. FINDINGS: RIGHT KIDNEY: Normal location of the right kidney, which is normal in size. The right kidney measures 10.5 x 4.9 x 5.2 cm. There is diffuse thinning of the renal cortex. The renal cortex measures 1.3 cm. Anechoic renal cyst measures 1.5 cm. Minimal amount of perinephric fluid adjacent to the superior mid right kidney is likely reactive. There is a shadowing calculus measuring 7 mm in the mid right kidney. There is no right hydronephrosis. DISTAL RIGHT URETER: There is non-visualization of the distal right ureter. There is no demonstrated right ureterovesical junction calculus. There is a visualized right ureteral jet. LEFT KIDNEY: Normal location of the left kidney, which is normal in size. The left kidney measures 11.2 x 6.8 x 5.8 cm. There is a normal cortex of the left kidney. The renal cortex measures 1.3 cm. There is a simple cyst of the left kidney measuring up to 3.5 cm. There are no left renal calculi. There is no left hydronephrosis. DISTAL LEFT URETER: There is non-visualization of the distal left ureter. There is no demonstrated left ureterovesical junction calculus. There is a visualized left ureteral jet. BLADDER: The urinary bladder is not well distended. Mild prostatomegaly with nodular contours involving the inferior urinary bladder wall. There is no demonstrated mass within the urinary bladder. There are no demonstrated bladder calculi. US/Kidney and Bladder IMPRESSION: 1. No hydronephrosis. 2. Simple bilateral renal cysts. 3. Minimal reactive/age-related edema adjacent to the right kidney. 4. Prostatomegaly with mild impression of the inferior urinary bladder wall. 5. Nonobstructive left renal calculus. 6. Bilateral renal cortical thinning compatible with history provided of chronic kidney disease Electronically Signed: Christiano Lock MD at 21:31 EST , Service support ,
== END ==
PROVIDERS: Family Provider Family Medicine; PCP Family Medicine; Referring Provider Internal Medicine Nephrology; Visit Provider Internal Medicine Nephrology
DX: N18.3 Chronic kidney disease, stage 3 (moderate) (principal)
CPT/HCPCS: 76770

== ENCOUNTER → 2018-07-13 12:08 | Outpatient (CLI) | payer MEDICARE, SELFPAY ==
[2018-06-13 13:29] VITALS: BMI 31.8
[2018-07-13 13:47] LABS: Hematocrit 45.9 % (40-54); Hemoglobin 14.7 g/dl (13.0-16.5); Mean Corpuscular Hgb 31.5 pg (27.0-32.0); Mean Corpuscular Volume 98.3 fL (80-94); Mean Platelet Vol. 10.2 fl (6.2-12.0); Platelet Count 210 K/mm3 (150-450); RBC Distribution Width CV 13.6 % (11.6-14.6); RBC Distribution Width SD 47.9 fl (35.1-43.9); Red Blood Count 4.67 M/mm3 (4.6-6.2); White Blood Count 10.7 K/mm3 (4.4-11.0)
[2018-07-13 13:50] LABS: Scan Indicated on CBC? Y/N NO
[2018-07-13 14:20] LABS: Albumin, Serum 3.8 g/dL (3.2-5.0); BUN 25 mg/dL (7-18); Calcium,Total 8.8 mg/dL (8.5-10.1); Chloride 107 mmol/L (98-107); Creatinine, Serum 1.78 mg/dL (0.70-1.30); EST Glomerular Filtration Rate 39 mL/min (>60); Est Glom Filt Rate - Afr Amer 47 mL/min (>60); Glucose 76 mg/dL (74-106); Phosphorus 2.8 mg/dL (2.5-4.9); Potassium 4.5 mmol/L (3.5-5.1); Sodium Level 139 mmol/L (136-145)
[2018-07-13 14:24] LABS: PTHIN 80.6 pg/mL (18.4-80.1)
== END ==
PROVIDERS: Family Provider Family Medicine; PCP Family Medicine; Referring Provider Internal Medicine Nephrology; Visit Provider Internal Medicine Nephrology
DX: N18.3 Chronic kidney disease, stage 3 (moderate) (principal)
CPT/HCPCS: 36415; 80069; 83970; 85027

== ENCOUNTER 2018-08-29 17:14 | Emergency (ER) | payer MEDICARE, SELFPAY ==
[2018-07-18 12:59] VITALS: BMI 32.5
[2018-08-29 17:16] VITALS: BP 149/82; PULSE 91; RESP 16; TEMP 36.1; O2SAT 95; BMI 31.7
--- NOTE | 2018-08-29 17:58 | RAD_ITS ---
STUDY: X-RAY - RIGHT KNEE REASON FOR EXAM: Male, 82 years old. Right knee pain TECHNIQUE: 4 view(s) of the knee. COMPARISON: None. FINDINGS: Intact right knee arthroplasty. No evidence of acute fracture or dislocation. Small amount of prepatellar tendon soft tissue swelling. Osseous degenerative changes RAD/Knee 4 or More Views IMPRESSION: Intact right knee arthroplasty. No acute findings. Prepatellar tendon soft tissue swelling Electronically Signed: Duy Ku DO at 18:32 EDT Tel , Service support ,
--- NOTE | 2018-08-29 17:58 | CT_ITS ---
STUDY: CT BRAIN WITHOUT CONTRAST REASON FOR EXAM: Male, 82 years old. Fall. Pain. RADIATION DOSAGE (If Supplied By Facility): CTDIvol = ( 44.99 ) mGy, DLP = ( 796.11 ) mGycm TECHNIQUE: Transaxial CT imaging of the brain was performed without administration of intravenous contrast material. Individualized dose optimization techniques were used for this CT. COMPARISON: No relevant priors. FINDINGS: Normal soft tissue structures. Normal calvarium. There is mild cerebral atrophy with widening of the extra-axial spaces and ventricular dilatation. There are areas of decreased attenuation within the white matter tracts of the supratentorial brain, consistent with microvascular disease changes. Normal basal ganglia and thalami. Normal brainstem. Normal cerebellum. There is enlargement of the left side of the pituitary gland suggesting adenoma. There is no intracranial hemorrhage. There are no findings of an acute ischemic infarction. Normal visualized paranasal sinuses. CT/Brain/Head without Contrast IMPRESSION: Chronic involutional changes of the brain. No hemorrhage. Electronically Signed: James Wynn MD at 18:26 EDT , Service support ,
--- NOTE | 2018-08-29 17:58 | RAD_ITS ---
STUDY: X-RAY - LEFT HAND REASON FOR EXAM: Male, 82 years old. Left hand pain, fourth and fifth metacarpal TECHNIQUE: 3 view(s) of the hand. COMPARISON: None. FINDINGS: No acute fracture or dislocation. Age-related degenerative changes and demineralization. There is a small hyperdense suspected foreign body within the soft tissues at the dorsum of the mid shaft middle phalanx third digit. Mild diffuse soft tissue swelling. RAD/Hand Min 3 Views IMPRESSION: Possible foreign body as above. No acute fracture or dislocation. Soft tissue swelling is noted Electronically Signed: Duy Ku DO at 18:31 EDT Tel , Service support ,
--- NOTE | 2018-08-29 17:58 | CT_ITS ---
STUDY: CT CERVICAL SPINE WITHOUT CONTRAST REASON FOR EXAM: Male, 82 years old. Fall. Pain. RADIATION DOSAGE (If Supplied By Facility): CTDIvol = ( 24.43 ) mGy, DLP = ( 594.14 ) mGycm TECHNIQUE: High resolution transaxial imaging was performed without contrast material. Sagittal and coronal images were reconstructed. Individualized dose optimization techniques were used for this CT. COMPARISON: None FINDINGS: Normal craniovertebral junction. There are degenerative changes of the anterior atlantoaxial articulation. Normal odontoid process. There is straightening of the normal cervical lordosis. Normal vertebral bodies and posterior osseous elements. C2-3: Normal endplates. Normal disc height and morphology. Normal central canal and intervertebral neuroforamina. C3-4: Normal endplates. Normal disc height and morphology. Normal central canal and intervertebral neuroforamina. C4-5: Mild spurring. Mild facet spurring. Normal central canal and intervertebral neuroforamina. C5-6: Disc space narrowing. Disc bulge and spurring flattening the thecal sac. Mild facet spurring. Uncovertebral spurring with bilateral foraminal narrowing. C6-7: Disc space narrowing. Disc bulge and spurring flattening the thecal sac. No canal stenosis or foraminal encroachment. C7-T1: Normal endplates. Normal disc height and morphology. Normal central canal and intervertebral neuroforamina. Normal visualized soft tissue structures. There are atherosclerotic calcifications. CT/Spine Cervical without Contras IMPRESSION: Mild degenerative changes, as described above. Electronically Signed: James Wynn MD at 18:28 EDT , Service support ,
--- NOTE | 2018-08-29 18:07 | ED.DCSUM_ITS ---
- ER Visit Summary Date of Service: 08/29/18 Chief Complaint: Fall History of Present Illness: The patient is a 82 M mechanical fall at noon today 6 hours ago. Mik with a cane in the garage when he stumbled falling forward. Pain right knee left hand, and mild headache. There is lip laceration and laceration left hand. He is on baby aspirin. Tetanus unknown. Able to get up and ambulate. History of bilateral total knee replacement in the past performed by Dr. Teran. No neck or back pain. No chest pains. No shortness of breath. Physical Examination: General: Alert and oriented ?3, no acute distress HEENT: Normocephalic. No hemotympanum. Moist mucosa membranes. A 2 cm inner lip laceration upper with no active bleeding. There is a 1 cm lip laceration left upper with no crossing of vermilion border. No bleeding. There was no loose teeth. Neck: supple, nontender. Cardiovascular: Regular rate and rhythm, no murmurs. No chest wall tenderness. Respiratory: Normal breath sounds, symmetric, no distress Abdomen: Soft, nontender, nondistended Extremities: Nontender, no edema, pulses intact ?4. Abrasion right knee with no deformities. Left upper extremity: Hand with ecchymosis fourth and fifth metacarpal, there was a 2 cm flap laceration patient ulnar aspect of distal fifth metacarpal. No active bleeding. Subcu exposure. Neuro: no focal neurological deficits. Test Results: CT head neck: No acute process. Left hand x-ray: No fracture or dislocation. Right knee x-ray: Hardware intact with no fractures Emergency Department Course and Treatment: Patient mechanical fall, no focal neurological deficits. Family present. They declined the Tdap due to not wanting pertussis, tetanus alone was not available. Image studies all negative. Lacerations were repaired. Verbal consent. Normal sterile conditions., left hand, total of 3, 5-0 nylon simple sutures were placed for good approximation with flap laceration. Left upper lip: 2, 6-0 nylon simple sutures placed with good approximation. Left upper inner lip: Total of 2, 5-0 Vicryl sutures placed. Patient tolerated procedure well. Wound care discussed. Tylenol was given. Concussion discussed with patient and family. Continue Tylenol as needed. Follow-up with PCP for suture removal. All questions were answered. Treatment Plan: [] Disposition: Discharge Impression: 1. Concussion without loss of consciousness 2. Inner lip laceration status post repair 3. Outer lip laceration status post repair 4. Left hand laceration with contusion status post repair 5. Right knee abrasion This note was generated with [employer] software. It may contain incorrect words, spelling, and punctuation that were not noted in review of the chart prior to signing ED Disposition - Plan for ED Patient: Disposition: Home or Assisted Living Diagnosis: Concussion without loss of consciousness, Lip laceration, Laceration of left hand, Contusion of left hand, Abrasion, right knee, initial encounter Instructions: ED Mechanical Fall, ED Laceration All, ED Concussion Referrals: Abhay Wilson MD [Primary Care Provider] - 5 Days for suture removal Additional Instructions: Inner lip repair was absorbable sutures. Upper outer lip lacerations are removed in 5-7 days. Left hand laceration sutures to removed in 10-14 days.
[2018-08-29] MEDS: Acetaminophen 500 MG Tablet 1000 MG PO (19:53)
[2018-08-29 20:01] VITALS: BP 136/61; PULSE 72; RESP 16; O2SAT 98
[2018-08-29 20:03] VITALS: BP 136/61; PULSE 75; RESP 16; O2SAT 97
== END 2018-08-29 20:09 | disposition home or self-care (01) ==
PROVIDERS: Emergency Provider Emergency Medicine; Family Provider Family Medicine; PCP Family Medicine
DX: S06.0X0A Concussion without loss of consciousness, initial encounter (principal); S01.511A Laceration without foreign body of lip, initial encounter; S61.411A Laceration without foreign body of right hand, initial encounter; S80.211A Abrasion, right knee, initial encounter; J45.909 Unspecified asthma, uncomplicated; W01.0XXA Fall on same level from slipping, tripping and stumbling without subsequent striking against object, initial encounter; Y93.01 Activity, walking, marching and hiking; Y92.008 Other place in unspecified non-institutional (private) residence as the place of occurrence of the external cause; Y99.8 Other external cause status
CPT/HCPCS: 12001; 12013; 70450; 72125; 73130; 73564; 99283

== ENCOUNTER → 2019-01-02 | Outpatient (CLI) | payer MEDICARE, SELFPAY ==
[2019-01-02 11:41] LABS: Hematocrit 45.1 % (40-54); Hemoglobin 14.8 g/dL (13.0-16.5); Mean Corp Hgb Conc 32.8 g/dL (32-36); Mean Corpuscular Hgb 31.2 pg (27.0-32.0); Mean Corpuscular Volume 95.1 fL (80-94); Mean Platelet Vol. 9.9 fl (6.2-12.0); Platelet Count 210 K/mm3 (150-450); RBC Distribution Width SD 49.1 fl (35.1-43.9); Red Blood Count 4.74 M/mm3 (4.6-6.2); White Blood Count 10.1 K/mm3 (4.4-11.0)
[2019-01-02 12:04] LABS: Albumin, Serum 3.7 g/dL (3.2-5.0); BUN 20 mg/dL (7-18); BUN/Creat Ratio 10.5 RATIO (10-20); Calcium,Total 9.1 mg/dL (8.5-10.1); Chloride 107 mmol/L (98-107); EST Glomerular Filtration Rate 36 mL/min (>60); Est Glom Filt Rate - Afr Amer 44 mL/min (>60); Glucose 90 mg/dL (74-106); Phosphorus 2.9 mg/dL (2.5-4.9); Potassium 4.1 mmol/L (3.5-5.1); Sodium Level 141 mmol/L (136-145)
== END | disposition home or self-care (01) ==
LOC: LAB.FUTURE 11:20
PROVIDERS: Family Provider Family Medicine; PCP Family Medicine; Referring Provider Internal Medicine Nephrology; Visit Provider Internal Medicine Nephrology
DX: N18.3 Chronic kidney disease, stage 3 (moderate) (principal)
CPT/HCPCS: 36415; 80069; 85027

== ENCOUNTER 2019-01-06 13:47 | Observation (INO) | payer MEDICARE, SELFPAY ==
[2019-01-06] VITALS (11 sets, daily range): BP systolic 104–147; BP diastolic 66–81; PULSE 72–104; RESP 14–20; TEMP 36.4–36.7; O2SAT 94–97; BMI 32.5; BMI 32.6; BMI 31.2
--- NOTE | 2019-01-06 14:08 | RAD_ITS ---
STUDY: X-RAY CHEST REASON FOR EXAM: Male, 83 years old. Chest pain. Lower extremity edema. TECHNIQUE: Single AP portable view of the chest. COMPARISON: Comparison is made with prior study February 21, 2017. FINDINGS: EKG electrodes are seen. Stable mild increased linear markings at the lung bases suggestive of scarring. There is no demonstrated pleural abnormality. There is mild cardiac enlargement. Normal mediastinum and sara. Normal visualized pulmonary arteries. There is atherosclerotic calcification of the aortic arch with tortuosity. There are diffuse degenerative changes of the visualized thoracic spine. Normal visualized ribs, clavicles, and shoulders. There is no demonstrated abnormality of the visualized soft tissue structures of the upper abdomen. RAD/Chest 1 View (Portable) IMPRESSION: Stable mild degree of scarring at the lung bases. No acute abnormality is seen. Electronically Signed: Wilder Tovar, at 14:23 EDT , Service support ,
--- NOTE | 2019-01-06 14:08 | EKG12_ITS ---
Test Reason : CP Blood Pressure : / mmHG Vent. Rate : 074 BPM Atrial Rate : 074 BPM P-R Int : 194 ms QRS Dur : 138 ms QT Int : 404 ms P-R-T Axes : -01 -45 -01 degrees QTc Int : 448 ms Normal sinus rhythm Right bundle branch block Left anterior fascicular block Bifascicular block Abnormal ECG Confirmed by GERRY MIGUEL, MANDA ([id number]), film and video editor FAIZAN MOHR ([id number]) on 01/10/2019 11:21:48 AM Referred By: Rigoberto Saldaña Confirmed By:MANDA GARRETT MD
[2019-01-06 14:27] LABS: Absolute Lymphocyte Count 1.63 X10^3/uL (0.83-4.51); Absolute Neutrophil Count 6.2 X10^3/uL (2.0-7.7); Eosinophil# 0.76 X10^3/uL; Hematocrit 44.6 % (40-54); Hemoglobin 14.5 g/dL (13.0-16.5); Lymphocyte # 1.63 X10^3/ul (4.0); Lymphocyte % 17.1 % (19-41); Mean Corp Hgb Conc 32.5 g/dL (32-36); Mean Corpuscular Hgb 31.3 pg (27.0-32.0); Mean Corpuscular Volume 96.1 fL (80-94); Mean Platelet Vol. 9.7 fl (6.2-12.0); Monocyte# 0.81 X10^3/uL; Monocyte% 8.5 % (0-10); NRBC Flagged by Analyzer 0 % (0-5); Neutrophil # 6.21 X10^3/uL (2.7-7.7); Neutrophil % 65.1 % (47-70); Platelet Count 192 K/mm3 (150-450); RBC Distribution Width CV 13.8 % (11.6-14.6); RBC Distribution Width SD 48.3 fl (35.1-43.9); Red Blood Count 4.64 M/mm3 (4.6-6.2); White Blood Count 9.5 K/mm3 (4.4-11.0)
--- NOTE | 2019-01-06 14:42 | ED.DCSUM_ITS ---
- ER Visit Summary Date of Service: 01/06/19 Chief Complaint: Chest pain History of Present Illness: The patient is a 83 M who presents the emergency department for evaluation of chest pain. The patient informs me that the past month has had increasing leg swelling. He states his legs have never been this swollen before. He takes 25 mg of hydrochlorothiazide. He has chronic kidney disease and is Dr. Catherine. He tells me that he has intermittently had a left chest discomfort which she describes as a for the past month. Today however when he woke at 0600 the pain went into his left arm was more intense and lasted about an hour. He saw his primary care physician today and was referred to the emergency department. He has a known right bundle branch block. He has had a stress test in the past that was negative but he cannot recall the year. History includes hypercholesterolemia, former smoker, lymphoma, June Batres?, and asthma. Physical Examination: Afebrile vital signs are stable Gen: Well-nourished well-developed Head: Normocephalic atraumatic Eyes: Perrl EOMI ENT: TMs clear no rhinorrhea moist mucous membranes Neck: Supple no lymphadenopathy no JVD nontender CVS: Regular rate rhythm no murmurs normal S1-S2 Respiratory: No distress clear to auscultation bilaterally chest nontender Abdomen: Soft nontender nondistended normal bowel sounds no masses Back: Nontender Extremity: Nontender 2+ lower extremity edema. Diffuse tenderness to palpation Skin: Normal color no rash Neuro: alert orientated ?3 CN II-XII intact normal strength sensation Psych: Normal affect normal mood Test Results: EKG showed a normal sinus rhythm with right bundle branch block and left anterior fascicular block. Rate was 74. No ectopy. CBC normal. BUN 26 with creatinine 1.96 (near baseline for patient) troponin is negative. Emergency Department Course and Treatment: Results are discussed with patient and family at the bedside. Patient received aspirin and Lasix. ADELAIDA score is 3. Heart score 5. Our plan is admission for further care. Impression: 1. Chest pain 2. Lymphedema This note was generated with [employer] software. It may contain incorrect words, spelling, and punctuation that were not noted in review of the chart prior to signing ED Disposition - Plan for ED Patient: Referrals: Abhay Wilson MD [Primary Care Provider] -
[2019-01-06 14:44] LABS: Anion Gap 10 (5-15); BUN 26 mg/dL (7-18); BUN/Creat Ratio 13.3 RATIO (10-20); Calcium,Total 9.1 mg/dL (8.5-10.1); Chloride 105 mmol/L (98-107); Creatinine, Serum 1.96 mg/dL (0.70-1.30); EST Glomerular Filtration Rate 35 mL/min (>60); Est Glom Filt Rate - Afr Amer 42 mL/min (>60); Estimated Creatinine Clearance 32.84 ml/min; Glucose 84 mg/dL (74-106); Sodium Level 141 mmol/L (136-145)
[2019-01-06 15:08] LABS: BNP,B-Type NATRIURETIC PEPTIDE 57.6 pg/mL (0-100)
[2019-01-06] MEDS: Furosemide 100 MG/10 ML Vial 60 MG IV (15:13)
[2019-01-06] MEDS: Aspirin 325 MG Tablet PO (15:13)
--- NOTE | 2019-01-06 16:06 | PCM.HP.STD ---
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 The patient is a 83 year old M with past medical history as mentioned above presented to the emergency room because of bilateral leg pain, swelling and chest pain. During my encounter, patient was more concerned about the bilateral leg pain and swelling. Over the last 1 week, he notes that his legs are more swollen, tight skin, started having pain on both legs, described as tightness, goes up to both thighs, could not rate how much his pain from 0-10, aggravated by standing and movement with associated tingling. He mentioned that he sleeps on a recliner and he has been doing this for almost 4 years. He has history of DVT on the right lower extremity years ago and he was on Xarelto during that time for 6 months. His other complaint was chest pain that has been going on for around 1 month, intermittent, on the left side of his chest, described as gas, mild and today, while he had the chest pain, he had ache on the right forearm which she described as arthritic pain. He denies any associated shortness of breath, palpitation, dizziness or lightheadedness. He mentioned that he had a stress test around 5 years ago and no history of cardiac interventions. He denied orthopnea or PND. He denies cough or sputum production. In the emergency department, his vital signs are stable. His routine blood work was remarkable for creatinine of 1.96 which is chronic, otherwise normal. EKG revealed normal sinus rhythm, RBBB which is chronic, no acute changes. Troponin and BNP was normal. Chest x-ray showed no acute findings. He is being admitted for chest pain for evaluation as well as evaluation for bilateral leg pain and swelling. 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) CKD (chronic kidney disease) (Chronic) Abnormality of gait (Chronic) Osteoarthritis (Chronic) Mitral valve disorder (Chronic) Nocturia (Chronic) Hypercholesteremia (Chronic) Medical History: Medical History (Last Updated 01/06/19 @ 16:22 by Rigoberto Saldaña MD) 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) C85.99 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) C83.33 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) I45.2 CKD (chronic kidney disease) (Chronic) N18.9 Abnormality of gait (Chronic) R26.9 Osteoarthritis (Chronic) M19.90 Mitral valve disorder (Chronic) I05.9 Nocturia (Chronic) R35.1 Hypercholesteremia (Chronic) E78.00 Former smoker Z87.891 Allergies ampicillin Adverse Reaction (Intermediate, Verified 10/19/18 10:41) rectal yeast gabapentin Adverse Reaction (Mild, Verified 10/19/18 10:41) goofy groggy diltiazem Adverse Reaction (Verified 10/19/18 10:41) Stasis edema erythromycin base [Erythromycin Base] Adverse Reaction (Verified 10/19/18 10:41) YEAST INFECTION YEAST INFECTION lisinopril Adverse Reaction (Verified 10/19/18 10:41) cough meperidine [From Demerol] Adverse Reaction (Verified 10/19/18 10:41) Nausea niacin Adverse Reaction (Verified 10/19/18 10:41) FEELS LIKE ON FIRE FEELS LIKE I'M ON FIRE Home Medications: Ambulatory Orders Medication Instructions Recorded Aspirin [Aspirin, Baby] 81 mg PO DAILY@0800 01/31/14 Fluticasone 0.05% [Flonase Nasal 1 spray NASAL QHS PRN 01/31/14 [place]] Hydrochlorothiazide [Hctz] 25 mg PO DAILY 01/31/14 Acetaminophen [Tylenol] 650 mg PO Q4H PRN 03/28/14 Finasteride [Proscar] 5 mg PO DAILY #30 tab 08/03/16 Albuterol Aerosols [Ventolin 2.5 mg INHALATION Q4H PRN #25 vial 02/21/17 Aerosols] Calcium Carbonate [Tums] 500 mg PO Q4H PRN PRN tab 03/18/17 budesonide 0.5 mg/2 mL suspension 0.5 mg INHALATION BID #120 ml 07/18/18 for nebulization Cholecalciferol (VIT D3) [Vitamin 1,000 unit PO DAILY 07/21/18 D] Loratadine [Claritin] 10 mg PO DAILY 07/21/18 Nitroglycerin (INPATIENT USE) 0.4 mg SUBLINGUAL Q5M PRN 07/21/18 [Nitrostat] Cholestyramine (with Sugar) 4 gm PO 4X/DAY 10/19/18 [Cholestyramine Packet] Melatonin 5 mg PO QHS 01/06/19 Multivit-Min/FA/Lycopen/Lutein 1 ea PO DAILY 01/06/19 [Centrum Silver Men Tablet] [place]-3S/Dha/Epa/Fish Oil/D3 [Fish 1 ea PO DAILY 01/06/19 Vpz-Beeid-8-Vit D Softgel] Vit A/Vit C/Vit E/Zinc/Copper 1 tab PO BID 01/06/19 [Icaps Areds Formula Tablet] Surgical History: Surgical History (Last Updated 01/06/19 @ 16:22 by Rigoberto Saldaña MD) History of appendectomy (Inactive) Z90.49 History of cholecystectomy (Inactive) Z90.49 History of hemicolectomy (Inactive) Z98.890, Z90.49 History of hernia repair (Inactive) Z98.890, Z87.19 History of laminectomy (Inactive) Z98.890 History of tonsillectomy (Inactive) Z90.89 History of total left knee replacement (Inactive) Z96.652 History of total right knee replacement (Inactive) Z96.651 S/P anal fissurectomy (Inactive) Z98.890, Z87.19 Surgical History: herniorrhaphy, total knee arthroplasty - Bilateral, - - Right hemicolectomy, L4-L5 lumbar surgery, sinus surgery Psychiatric History: No pertinent psych hx Smoking Status: Former smoker Alcohol: Occasional Drugs: None - *Family History Maternal Family History: Family History (Last Reviewed 10/19/18 @ 10:41 by Mary Danielle) Mother Heart disease Grandmother Diabetes Brother Hypertension History Items: Heart Disease Paternal Family History: Family History (Last Reviewed 10/19/18 @ 10:41 by Mary Danielle) Mother Heart disease Grandmother Diabetes Brother Hypertension History Items: - - Cirrhosis Review of Systems Constitutional: Denies: Anorexia, Chills, Fever, Weakness Eyes: Denies: Blurred vision, Double vision, Drainage, Redness HEENT: Denies: Difficulty Hearing, Ear Pain, Eye Pain, Nasal Congestion, Sore Throat Cardiovascular: Reports: Chest Pain. Denies: Chest Tightness, Edema, Heaviness, Light Headedness, Palpitations, Syncope Respiratory: Denies: Cough, Pleuritic Pain, Shortness of Breath, Sputum production, Wheezing Gastrointestinal: Denies: Abdominal Pain, Constipation, Diarrhea, Nausea, Vomiting Genitourinary: Denies: Dysuria, Frequency, Hematuria Musculoskeletal: Reports: Leg Pain. Denies: Arm Pain, Back Pain Skin: Denies: Dryness, Rash Neurological: Denies: Balance problems, Blurred vision, Double vision, Change in Speech, Slurred speech, Confusion, Incoordination, Numbness, Tingling Psychiatric: Denies: Anxiety, Depression Endocrine: Denies: Change in Body Habitus, Polydipsia, Polyuria VTE Information - Inpt Only VTE Present on Admission: No VTE Mechan Device Prophylaxis: None VTE Pharm Prophylaxis ordered?: Yes - Physical Exam General: Alert, Oriented x3, Cooperative, No apparent distress HEENT: Atraumatic, PERRLA, EOMI, Normocephalic Oral: Moist Mucosa, No Gingival or Mucosal Lesions/ Ulcerations Neck: Supple, No JVD, Negative Carotid Bruits, Trachea Midline, Thyroid Normal Size and Texture Lungs: Clear to auscultation, Normal air movement, No rhonchi, No wheeze, No rales, Diminished Cardiovascular: Regular rate, Regular Rhythm, Normal S1, Normal S2, PMI Normal Abdomen: Bowel Sounds Present, Soft, Non Tender, Non-Distended, No Hepato-splenomegaly Extremities: No clubbing, No cyanosis, Edema - Trace edema. Musculoskeletal: - - Right leg: Mild erythema and swelling on the lower one third of the right leg and right foot, tender to palpation. Left leg: Minimal swelling, tender to palpation. Lymphatic: No Cervical, Supraclavicular, or Inguinal Adenopathy Neurological: Cranial nerves II-XII grossly intact, Motor Exam 5/5 strength throughout Psych/Mental Status: Normal Affect, Appropriate, Alert and oriented to time, place, person, mood and affect Vital Signs Temp Pulse Resp BP Pulse Ox 97.8 F 78 16 129/68 H 96 01/06/19 13:48 01/06/19 15:06 01/06/19 15:06 01/06/19 15:06 01/06/19 15:06 Oxygen Delivery Method Room Air Weight: 247 lb Body Mass Index (BMI) 32.5 Laboratory Tests Past 24 Hrs 01/06/19 01/06/19 01/06/19 14:19 14:19 14:19 WBC 9.5 RBC 4.64 Hgb 14.5 Hct 44.6 MCV 96.1 H MCH 31.3 MCHC 32.5 RDW Std Deviation 48.3 H RDW Coeff of Nico 13.8 Plt Count 192 MPV 9.7 Immature Gran % (Auto) 0.300 Neut % (Auto) 65.1 Lymph % (Auto) 17.1 L Moore % (Auto) 8.5 Eos % (Auto) 8.0 H Baso % (Auto) 1.0 Absolute Neuts (auto) 6.2 Absolute Lymphs (auto) 1.63 Nucleated RBC % 0 Sodium 141 Potassium 4.0 Chloride 105 Carbon Dioxide 26.0 Anion Gap 10 BUN 26 H Creatinine 1.96 H Estim Creat Clear Calc 32.84 Est GFR (MDRD) Af Amer 42 L Est GFR (MDRD) Non-Af 35 L BUN/Creatinine Ratio 13.3 Glucose 84 Calcium 9.1 Troponin I < 0.015 B-Natriuretic Peptide 57.6 Clinical Impression(s) from Imaging Studies Chest X-Ray 01/06/19 14:08 IMPRESSION: Stable mild degree of scarring at the lung bases. No acute abnormality is seen. Electronically Signed: Wilder Tovar, at 14:23 EDT , Service support , Assessment/Plan This is an 83 years old male patient presented to the emergency room because of bilateral leg pain and swelling as well as chest pain and he is being admitted for evaluation. #1 bilateral leg pain/swelling/tightness: Unclear etiology. Right leg is swollen with mild erythema to the lower one third of the right leg and right foot, hot to palpation. I doubt cellulitis. Patient had a history of DVT to the right lower extremity. No evidence of acute CHF. Vital signs are stable, no hypoxia. BNP was normal. Plan: Admit to PCU for observation, cardiac monitoring, venous Doppler of bilateral lower extremities, repeat BMP tomorrow morning, Tylenol and OxyIR PRN for pain, PT OT evaluation and treatment. #2 chest pain: Atypical. Risk factors are age, former smoker and hyperlipidemia. EKG reviewed, unremarkable. Troponin was negative. Chest x-ray showed no acute findings. Plan: Cardiac monitoring, serial cardiac enzymes, repeat EKG tomorrow morning, nuclear stress test tomorrow morning if cardiac enzymes are negative. #3 stage III chronic kidney disease: Baseline creatinine has been around 1.6 to 1.9 mg/dL. Admission creatinine is 1.96, stable at baseline. #4 history of diffuse large B-cell lymphoma: Stable, in remission. #5 hyperlipidemia: Continue cholestyramine. 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 Patient mentioned that he was given gabapentin but he did not like it because it made him goofy and was discontinued. Patient may need another trial of gabapentin for neuropathy. #7 DVT prophylaxis: Subcu heparin. This note was generated with [employer] dictation software. It may contain incorrect words, spelling, and punctuation that were not noted in checking the note before signing. Code Visit OBSV E&M: 37788 Initial observation care L3
--- NOTE | 2019-01-06 16:34 | VDLE_ITS ---
Reason For Study: SWELLING RIGHT LEFT GSV is normal. GSV is normal. CFV is compressible, spontaneous, phasic, CFV is compressible, spontaneous, phasic, competent and demonstrates normal competent, and demonstrates normal augmentation. augmentation. FV is compressible, spontaneous, phasic, FV is compressible, spontaneous, phasic, competent and demonstrates normal competent and demonstrates normal augmentation. augmentation. POP V is compressible, spontaneous, phasic, POP V is compressible, spontaneous, phasic, competent and demonstrates normal competent and demonstrates normal augmentation. augmentation. T/P Trunk is compressible. T/P Trunk is compressible. PTV is compressible. PTV is compressible. RT PerV is compressible. LT PerV is compressible. Procedure Exam performed in department. A preliminary report was called and/or faxed to [facility]. Interpretation Summary Deep veins of the lower extremities are bilaterally patent and compressible segmentally. There is no evidence of deep vein thrombosis on either side. Valvular competence appears intact within the proximal deep venous systems bilaterally. The great saphenous veins appear bilaterally patent and compressible segmentally. Ordering Physician: Rigoberto Saldaña Referring Physician: GREG AVILA Performed By: Jessica Vance, NEVILLE, RVT
[2019-01-06] MEDS: 0.9% Normal Saline 1,000 ML 75 ML IV (16:57)
--- NOTE | 2019-01-06 17:32 | EKG12_ITS ---
Test Reason : CP ADMIT Blood Pressure : / mmHG Vent. Rate : 075 BPM Atrial Rate : 075 BPM P-R Int : 198 ms QRS Dur : 142 ms QT Int : 430 ms P-R-T Axes : 016 -45 -10 degrees QTc Int : 480 ms Sinus rhythm with Premature supraventricular complexes and with occasional and consecutive Premature ventricular complexes Right bundle branch block Left anterior fascicular block Bifascicular block Abnormal ECG When compared with ECG of 15-MAR-2017 14:39, Premature ventricular complexes are now Present Confirmed by MARLYN HINKLE ([id number]), telegraph editor FAIZAN MOHR ([id number]) on 01/12/2019 1:55:43 PM Referred By: Rigoberto Saldaña Confirmed By:MARLYN HINKLE
[2019-01-06] MEDS: Cholestyramine/Sucrose 4 GM/PACKET PO (17:57)
[2019-01-06] MEDS: Budesonide Respules 0.5 MG/2 ML AMPUL.NEB. INHALATION (18:58)
[2019-01-06] MEDS: Albuterol 2.5 MG/3 ML VIAL.NEB. INHALATION (18:58)
[2019-01-06] MEDS: MELATONIN 10 MG TABLET 5 MG PO (21:37)
[2019-01-06] MEDS: Heparin Injection (Vial) 5,000 UNIT/ML VIAL 5000 UNIT SC (21:38)
[2019-01-07] VITALS (7 sets, daily range): BP systolic 111–129; BP diastolic 53–67; PULSE 66–74; RESP 16–18; TEMP 36.4–36.7; O2SAT 95–96
--- NOTE | 2019-01-07 05:55 | EKG12_ITS ---
Test Reason : AM EKG Blood Pressure : / mmHG Vent. Rate : 067 BPM Atrial Rate : 067 BPM P-R Int : 210 ms QRS Dur : 142 ms QT Int : 440 ms P-R-T Axes : 022 -43 -18 degrees QTc Int : 464 ms Sinus rhythm with 1st degree A-V block Left axis deviation Right bundle branch block Abnormal ECG When compared with ECG of 06-JAN-2019 17:18, MANUAL COMPARISON REQUIRED, DATA IS UNCONFIRMED Confirmed by MARLYN HINKLE ([id number]), non linear editor FAIZAN MOHR ([id number]) on 01/12/2019 1:56:45 PM Referred By: Rigoberto Saldaña Confirmed By:MARLYN HINKLE
[2019-01-07 06:41] LABS: Anion Gap 9 (5-15); BUN 29 mg/dL (7-18); BUN/Creat Ratio 13.6 RATIO (10-20); Calcium,Total 8.4 mg/dL (8.5-10.1); Chloride 105 mmol/L (98-107); Creatinine, Serum 2.14 mg/dL (0.70-1.30); EST Glomerular Filtration Rate 32 mL/min (>60); Est Glom Filt Rate - Afr Amer 38 mL/min (>60); Estimated Creatinine Clearance 30.94 ml/min; Glucose 82 mg/dL (74-106); Potassium 3.6 mmol/L (3.5-5.1); Sodium Level 142 mmol/L (136-145)
[2019-01-07] MEDS: Budesonide Respules 0.5 MG/2 ML AMPUL.NEB. INHALATION (07:25)
[2019-01-07] MEDS: Aspirin 81 MG TAB.CHEW PO (07:56)
[2019-01-07] MEDS: Acetaminophen 325 MG Tablet 650 MG PO (07:57)
[2019-01-07 09:05] LABS: CPK Total, Creatine Kinase 90 U/L (39-308); Magnesium 1.5 mg/dL (1.6-2.6)
--- NOTE | 2019-01-07 11:47 | STRESSREP ---
Stress Test Report Date: 01-07-19 Procedure: Pharmacologic stress nuclear imaging study Indications: Chest pain; abnormal ECG Consent: Per the patient Procedure: The patient underwent pharmacologic (Regadenoson) evaluation with a peak heart rate of 87 beats per minute (63 %predicted maximal heart rate) and a peak blood pressure of 140/60 mmHg. The baseline ECG demonstrated normal sinus rhythm; right bundle branch block pattern. The peak pharmacologic ECG demonstrated no obvious ECG changes. There was a rare PVC pretest and during recovery. There was no complaint of chest discomfort during pharmacologic infusion or recovery. The examination was discontinued secondary to completion of protocol. Impression: 1. Pharmacologic (Regadenoson) evaluation 2. Peak pharmacologic ECG with no obvious ECG changes. 3. There was a rare PVC pretest and during recovery. 4. Nuclear images pending Myocardial perfusion imaging study: Technique: The patient was injected with 14.4 millicuries of technetium 99m Cardiolite and subsequently rest SPECT Cardiolite nuclear imaging was obtained in the horizontal long, vertical long, and short axis views. The patient underwent pharmacologic (Regadenoson) evaluation with a peak heart rate of 87 beats per minute (63 % percent predicted maximal heart rate) and a peak blood pressure of 140/60 mmHg. The patient was injected with 43.6 millicuries of technetium 99m Cardiolite and subsequently stress SPECT Cardiolite nuclear imaging was obtained in the horizontal long, vertical long, and short axis views. A gated Cardiolite study at peak stress was obtained. Interpretation: Rest and stress SPECT Cardiolite nuclear imaging status post realignment, normalization, and attenuation correction demonstrate the appearance of a small area of diminished tracer uptake near the inferior apical segments without significant change between rest and stress. There is end systolic thickening and brightening. The gated Cardiolite study demonstrates myocardial thickening and inward wall motion. The reported LVEF is 47 %. Impression: 1. Rest and stress SPECT Cardiolite nuclear imaging demonstrate myocardial perfusion changes appearing compatible with the effects of physiologic apical thinning with no myocardial perfusion changes considered diagnostic for associated stress-induced myocardial ischemia. 2. The gated Cardiolite study reports an LVEF of 47 %. This note was generated with [employer]ation software. It may contain incorrect words, spelling, and punctuation that were not noted in checking the note before signing.
[2019-01-07] MEDS: Loratadine 10 MG Tablet PO (12:01)
[2019-01-07] MEDS: hydroCHLOROthiazide 25 MG Tablet PO (12:01)
[2019-01-07] MEDS: Finasteride 5 MG Tablet PO (12:01)
--- NOTE | 2019-01-07 13:07 | PCM.DC ---
You will use the following diet at home:: Cardiac Discharge Activity: Return to Normal Activity Call your doctor if you observe: Shortness of breath, Dizziness, Fainting spells, Chest pain Allergies/Adverse Reactions: Allergies ampicillin Adverse Reaction (Intermediate, Verified 10/19/18 10:41) rectal yeast gabapentin Adverse Reaction (Mild, Verified 10/19/18 10:41) goofy groggy diltiazem Adverse Reaction (Verified 10/19/18 10:41) Stasis edema erythromycin base [Erythromycin Base] Adverse Reaction (Verified 10/19/18 10:41) YEAST INFECTION YEAST INFECTION lisinopril Adverse Reaction (Verified 10/19/18 10:41) cough meperidine [From Demerol] Adverse Reaction (Verified 10/19/18 10:41) Nausea niacin Adverse Reaction (Verified 10/19/18 10:41) FEELS LIKE ON FIRE FEELS LIKE I'M ON FIRE Medications to take at Discharge Aspirin [Aspirin, Baby] 81 mg PO DAILY@0800 01/31/14 Fluticasone 0.05% [Flonase Nasal [place]] 1 spray NASAL QHS PRN 01/31/14 Hydrochlorothiazide [Hctz] 25 mg PO DAILY 01/31/14 Acetaminophen [Tylenol] 650 mg PO Q4H PRN 03/28/14 Finasteride [Proscar] 5 mg PO DAILY #30 tab 08/03/16 Albuterol Aerosols [Ventolin Aerosols] 2.5 mg INHALATION Q4H PRN #25 vial 02/21/17 Calcium Carbonate [Tums] 500 mg PO Q4H PRN PRN tab 03/18/17 budesonide 0.5 mg/2 mL suspension for nebulization 0.5 mg INHALATION BID #120 ml 07/18/18 Cholecalciferol (VIT D3) [Vitamin D3] 1,000 unit PO DAILY 07/21/18 Loratadine [Claritin] 10 mg PO DAILY 07/21/18 Nitroglycerin (INPATIENT USE) [Nitrostat] 0.4 mg SUBLINGUAL Q5M PRN 07/21/18 Cholestyramine (with Sugar) [Cholestyramine Packet] 4 gm PO 4X/DAY 10/19/18 Melatonin 5 mg PO QHS 01/06/19 Multivit-Min/FA/Lycopen/Lutein [Centrum Silver Men Tablet] 1 ea PO DAILY 01/06/19 [place]-3S/Dha/Epa/Fish Oil/D3 [Fish Xxj-Hrwov-9-Vit D Softgel] 1 ea PO DAILY 01/06/19 Vit A/Vit C/Vit E/Zinc/Copper [Icaps Areds Formula Dr Tablet] 1 tab PO BID 01/06/19 Primary Care Physician: Abhay Wilson MD [Primary Care Provider] - Please follow up with your Primary Care Physician in: 1 Week Test Results: Test results from this visit will be discussed in further detail at your follow-up appointment, if applicable. Please Follow Up With: Raven Catherine DO When: As scheduled, Wednesday01/10/19 Please Follow Up With: Julio Cesar Hinojosa DO When: As scheduled, 01/23/19 Proposed Discharge Date: 01/07/19
--- NOTE | 2019-01-07 13:11 | PCM.DC.SUM ---
<Ciera Borden - Last Filed: 01/07/19 13:27> Discharge Date and Diagnosis Date of Admission: 01/06/19 Date of Discharge: 01/07/19 - Primary Discharge Diagnosis 1. Bilateral lower extremity pain and swelling, DVT ruled out-suspect secondary to peripheral neuropathy with chronic dependent edema 2. Atypical chest pain, ACS ruled out 3. Chronic kidney disease stage III 4. History of diffuse large B-cell lymphoma 5. Hyperlipidemia 6. 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 BPH 8. 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 No acute abnormality is seen. Electronically Signed: Wilder Guy, at 14:23 EDT , Service support , Operations: None Procedures: Stress test, - - Venous duplex ultrasound Summary of Care Provided: The patient is a 83 year old M admitted 01/06/2019 due to bilateral leg pain, swelling and chest pain. 1. Bilateral lower extremity pain and swelling, DVT ruled out-suspect secondary to peripheral neuropathy with chronic dependent edema. Patient has history of DVT. Duplex ultrasound without evidence of DVT. Patient reports his lower extremities are chronically swollen, however worse over the past week. Recommend JACQUES hose to be worn during the day. Patient agreeable to home health at discharge for further assistance at home. No evidence of CHF. Follow-up with primary care provider in 1 week. 2. Atypical chest pain, ACS ruled out-chest x-ray without acute process. Troponin negative. EKG without ST-T changes. Patient underwent nuclear stress test was negative for ischemia. Gated LVEF 47%. Patient reports he has had multiple echocardiograms in the past however these are not available in our system. Recommend repeat echocardiogram as outpatient if not completed in the past 6 months to 1 year, this will need to be arranged by primary care provider.. 3. Chronic kidney disease stage III-creatinine at baseline on admission. Repeat creatinine mildly increased following IV Lasix x1. Patient has follow-up with Dr. Catherine, nephrology on 01/10/2019. 4. History of diffuse large B-cell lymphoma-stable, in remission for approximately 4 years. 5. Hyperlipidemia-continue cholestyramine regimen. 6. 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 Follow-up as outpatient, patient may benefit from low-dose bedtime gabapentin trial. 7. BPH-continue home Proscar regimen. 8. Chronic variant asthma-stable, no exacerbation. General: Alert, Oriented x3, Cooperative, No apparent distress HEENT: Atraumatic, PERRLA, EOMI, Normocephalic Oral: Moist Mucosa, No Gingival or Mucosal Lesions/ Ulcerations Neck: Supple, No JVD, Negative Carotid Bruits, Trachea Midline, Thyroid Normal Size and Texture Lungs: Clear to auscultation, Normal air movement, No rhonchi, No wheeze, No rales, Diminished Cardiovascular: Regular rate, Regular Rhythm, Normal S1, Normal S2, PMI Normal Abdomen: Bowel Sounds Present, Soft, Non Tender, Non-Distended, No Hepato-splenomegaly Extremities: No clubbing, No cyanosis, Edema - Trace edema. Musculoskeletal: - - Right leg: Mild erythema and swelling on the lower one third of the right leg and right foot, tender to palpation. Left leg: Minimal swelling, tender to palpation. Lymphatic: No Cervical, Supraclavicular, or Inguinal Adenopathy Neurological: Cranial nerves II-XII grossly intact, Motor Exam 5/5 strength throughout Psych/Mental Status: Normal Affect, Appropriate, Alert and oriented to time, place, person, mood and affect Patient seen and examined prior to discharge. Physical assessment as noted above. Patient is stable for discharge with follow up recommendations as noted above. This patient was seen by MANUEL Rawls under the supervision of Dr. Monzon. - Physical Exam Vital Signs Temp Pulse Resp BP Pulse Ox 97.8 F 70 18 127/67 H 96 01/07/19 11:58 01/07/19 12:15 01/07/19 11:58 01/07/19 11:58 01/07/19 11:58 Oxygen Delivery Method Room Air Weight: 243 lb 6.245 oz Body Mass Index (BMI) 31.2 Intake and Output for Last 24 Hours 01/05/19 01/06/19 01/07/19 23:59 23:59 23:59 Intake Total 960 / 960 640 / 640 Output Total 700 / 700 275 / 275 Balance 260 / 260 365 / 365 Laboratory Tests Past 24 Hrs 01/06/19 01/06/19 01/06/19 14:19 14:19 14:19 WBC 9.5 RBC 4.64 Hgb 14.5 Hct 44.6 MCV 96.1 H MCH 31.3 MCHC 32.5 RDW Std Deviation 48.3 H RDW Coeff of Nico 13.8 Plt Count 192 MPV 9.7 Immature Gran % (Auto) 0.300 Neut % (Auto) 65.1 Lymph % (Auto) 17.1 L Rawlins % (Auto) 8.5 Eos % (Auto) 8.0 H Baso % (Auto) 1.0 Absolute Neuts (auto) 6.2 Absolute Lymphs (auto) 1.63 Nucleated RBC % 0 Sodium 141 Potassium 4.0 Chloride 105 Carbon Dioxide 26.0 Anion Gap 10 BUN 26 H Creatinine 1.96 H Estim Creat Clear Calc 32.84 Est GFR (MDRD) Af Amer 42 L Est GFR (MDRD) Non-Af 35 L BUN/Creatinine Ratio 13.3 Glucose 84 Calcium 9.1 Magnesium Total Creatine Kinase Troponin I < 0.015 B-Natriuretic Peptide 57.6 01/06/19 01/06/19 01/07/19 17:45 20:49 05:51 WBC RBC Hgb Hct MCV MCH MCHC RDW Std Deviation RDW Coeff of Nico Plt Count MPV Immature Gran % (Auto) Neut % (Auto) Lymph % (Auto) Rawlins % (Auto) Eos % (Auto) Baso % (Auto) Absolute Neuts (auto) Absolute Lymphs (auto) Nucleated RBC % Sodium 142 Potassium 3.6 Chloride 105 Carbon Dioxide 28.0 Anion Gap 9 BUN 29 H Creatinine 2.14 H Estim Creat Clear Calc 30.94 Est GFR (MDRD) Af Amer 38 L Est GFR (MDRD) Non-Af 32 L BUN/Creatinine Ratio 13.6 Glucose 82 Calcium 8.4 L Magnesium Total Creatine Kinase Troponin I < 0.015 < 0.015 B-Natriuretic Peptide 01/07/19 05:51 WBC RBC Hgb Hct MCV MCH MCHC RDW Std Deviation RDW Coeff of Nico Plt Count MPV Immature Gran % (Auto) Neut % (Auto) Lymph % (Auto) Rawlins % (Auto) Eos % (Auto) Baso % (Auto) Absolute Neuts (auto) Absolute Lymphs (auto) Nucleated RBC % Sodium Potassium Chloride Carbon Dioxide Anion Gap BUN Creatinine Estim Creat Clear Calc Est GFR (MDRD) Af Amer Est GFR (MDRD) Non-Af BUN/Creatinine Ratio Glucose Calcium Magnesium 1.5 L Total Creatine Kinase 90 Troponin I B-Natriuretic Peptide Discharge Diet: Low fat/ Low Cholesterol, 2000 mg Sodium Diet Discharge Activity: Return to Normal Activity Call your doctor if you observe: Shortness of breath, Dizziness, Fainting spells, Chest pain Home Medications: Medications to take at Discharge Aspirin [Aspirin, Baby] 81 mg PO DAILY@0800 01/31/14 Fluticasone 0.05% [Flonase Nasal [place]] 1 spray NASAL QHS PRN 01/31/14 Hydrochlorothiazide [Hctz] 25 mg PO DAILY 01/31/14 Acetaminophen [Tylenol] 650 mg PO Q4H PRN 03/28/14 Finasteride [Proscar] 5 mg PO DAILY #30 tab 08/03/16 Albuterol Aerosols [Ventolin Aerosols] 2.5 mg INHALATION Q4H PRN #25 vial 02/21/17 Calcium Carbonate [Tums] 500 mg PO Q4H PRN PRN tab 03/18/17 budesonide 0.5 mg/2 mL suspension for nebulization 0.5 mg INHALATION BID #120 ml 07/18/18 Cholecalciferol (VIT D3) [Vitamin D3] 1,000 unit PO DAILY 07/21/18 Loratadine [Claritin] 10 mg PO DAILY 07/21/18 Nitroglycerin (INPATIENT USE) [Nitrostat] 0.4 mg SUBLINGUAL Q5M PRN 07/21/18 Cholestyramine (with Sugar) [Cholestyramine Packet] 4 gm PO 4X/DAY 10/19/18 Melatonin 5 mg PO QHS 01/06/19 Multivit-Min/FA/Lycopen/Lutein [Centrum Silver Men Tablet] 1 ea PO DAILY 01/06/19 [place]-3S/Dha/Epa/Fish Oil/D3 [Fish Pvw-Gnjqc-7-Vit D Softgel] 1 ea PO DAILY 01/06/19 Vit A/Vit C/Vit E/Zinc/Copper [Icaps Areds Formula Dr Tablet] 1 tab PO BID 01/06/19 Primary Care Physician: Abhay Wilson MD [Primary Care Provider] - Please follow up with your Primary Care Physician in: 1 Week Please Follow Up With: Raven Catherine DO When: As scheduled, Wednesday01/10/19 Please Follow Up With: Julio Cesar Hinojosa DO When: As scheduled, 01/23/19 Disposition: Home with Home Health Minutes spent on discharge:: 35 Patient Condition:: Stable Medical Necessity - Tobacco Use Smoking Status: Former smoker Tobacco Use: Cigarettes Meaningful Use Info Meaningful Use Diagnoses (Choose all that apply): None applicable <Karlos Monzon - Last Filed: 01/07/19 15:14> Discharge Date and Diagnosis - Secondary Discharge Diagnosis Chronic Problems (Last Updated 01/06/19 @ 16:22 by Rigoberto Saldaña MD) 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 I have independently interviewed and examined the patient and reviewed pertinent historical, laboratory, and other data. Please refer to MANUEL Rawls note for details of this patient's presentation, findings, and recommendations. I have reviewed MANUEL Rawls note and concur with documented findings. In brief, patient is a 83-year-old gentleman who presented with chest pain as well as bilateral lower extremity pain. Admitted to monitored bed VA was ruled out with serial cardiac enzymes underwent a nuclear stress test which was also negative for stress-induced ischemia. Bilateral venous duplex obtained came back unremarkable for DVT was felt patient's lower extremity symptoms were secondary to peripheral neuropathy. Hospital course: As documented above by Ciera Borden NP?C - Physical Exam Vital Signs Temp Pulse Resp BP Pulse Ox 97.8 F 70 18 127/67 H 96 01/07/19 11:58 01/07/19 12:15 01/07/19 11:58 01/07/19 11:58 01/07/19 11:58 Oxygen Delivery Method Room Air Weight: 110.4 kg Body Mass Index (BMI) 31.2 Intake and Output for Last 24 Hours 01/05/19 01/06/19 01/07/19 23:59 23:59 23:59 Intake Total 960 / 960 744 / 744 Output Total 700 / 700 275 / 275 Balance 260 / 260 469 / 469 Laboratory Tests Past 24 Hrs 01/06/19 01/06/19 01/07/19 17:45 20:49 05:51 Sodium 142 Potassium 3.6 Chloride 105 Carbon Dioxide 28.0 Anion Gap 9 BUN 29 H Creatinine 2.14 H Estim Creat Clear Calc 30.94 Est GFR (MDRD) Af Amer 38 L Est GFR (MDRD) Non-Af 32 L BUN/Creatinine Ratio 13.6 Glucose 82 Calcium 8.4 L Magnesium Total Creatine Kinase Troponin I < 0.015 < 0.015 01/07/19 05:51 Sodium Potassium Chloride Carbon Dioxide Anion Gap BUN Creatinine Estim Creat Clear Calc Est GFR (MDRD) Af Amer Est GFR (MDRD) Non-Af BUN/Creatinine Ratio Glucose Calcium Magnesium 1.5 L Total Creatine Kinase 90 Troponin I Code Visit OBSV E&M: 47163 Observation care discharge
[2019-01-07] MEDS: Cholestyramine/Sucrose 4 GM/PACKET PO (14:18)
[2019-01-07] MEDS: Heparin Injection (Vial) 5,000 UNIT/ML VIAL 5000 UNIT SC (14:19)
--- NOTE | 2019-01-07 15:35 | CM.UR ---
Addendum entered by Marissa Crane 01/07/19 16:13: Received call back from Elen. [facility] does not service that area. Tried [facility] as they are owned by the same parent company. States that none of their companies service [place], [place]. Noted that [facility] is in network. Spoke with MAVIS Johns who states we do service that area. Explained ok for soc next week and faxed information at this time. George Crane RN, CCM. Original Note: spoke with Elen at [facility] giving her patient's information. Gave ok for soc week of 01/09. Faxed clinical at this time. George Crane RN, CCM.
== END 2019-01-07 13:09 | disposition home health service (06) ==
LOC: ED 14:24 → PCU 16:12
PROVIDERS: Admitting Provider Hospitalist; Emergency Provider Emergency Medicine; Family Provider Family Medicine; PCP Family Medicine; Referring Provider Hospitalist; Visit Provider Internal Medicine
DX: R07.89 Other chest pain (principal); M79.605 Pain in left leg; M79.604 Pain in right leg; M79.89 Other specified soft tissue disorders; E78.5 Hyperlipidemia, unspecified; N18.3 Chronic kidney disease, stage 3 (moderate); I89.0 Lymphedema, not elsewhere classified; I45.2 Bifascicular block; M19.90 Unspecified osteoarthritis, unspecified site; B94.8 Sequelae of other specified infectious and parasitic diseases; C83.33 Diffuse large B-cell lymphoma, intra-abdominal lymph nodes; N40.0 Benign prostatic hyperplasia without lower urinary tract symptoms; J45.998 Other asthma; G62.89 Other specified polyneuropathies; Z87.891 Personal history of nicotine dependence; Z79.899 Other long term (current) drug therapy; Z79.82 Long term (current) use of aspirin
CPT/HCPCS: 36415; 71045; 78452; 80048; 82550; 83735; 83880; 84484; 85025; 93005; 93017; 93970; 94640; 96361; 96372; 96374; 97110; 97162; 97165; 99218; 99285; A9500; J7030; J7040; A4216; G0378; J1940; J2785

== ENCOUNTER → 2019-02-13 | Outpatient (CLI) | payer MEDICARE, SELFPAY ==
[2019-01-06 16:32] VITALS: BMI 31.2
[2019-02-13 10:50] LABS: Albumin, Serum 3.6 g/dL (3.2-5.0); BUN 32 mg/dL (7-18); BUN/Creat Ratio 16.6 RATIO (10-20); Calcium,Total 8.9 mg/dL (8.5-10.1); Chloride 107 mmol/L (98-107); Cholesterol 139 mg/dL (200); Creatinine, Serum 1.93 mg/dL (0.70-1.30); EST Glomerular Filtration Rate 36 mL/min (>60); Est Glom Filt Rate - Afr Amer 43 mL/min (>60); Glucose 119 mg/dL (74-106); High Density Lipoprotein 52 mg/dL; Phosphorus 2.4 mg/dL (2.5-4.9); Potassium 3.8 mmol/L (3.5-5.1); Sodium Level 140 mmol/L (136-145); Triglycerides 267 mg/dL; Very Low Density Lipoprotein 53 mg/dL (5-40)
== END | disposition home or self-care (01) ==
LOC: LAB 09:11
PROVIDERS: Family Provider Family Medicine; PCP Family Medicine; Referring Provider Internal Medicine Nephrology; Visit Provider Internal Medicine Nephrology
DX: E78.00 Pure hypercholesterolemia, unspecified (principal); N18.3 Chronic kidney disease, stage 3 (moderate)
CPT/HCPCS: 36415; 80061; 80069

== ENCOUNTER 2019-07-06 18:49 | Emergency (ER) | payer MEDICARE, SELFPAY ==
[2019-04-20 13:26] VITALS: BMI 33.1
[2019-07-06 18:50] VITALS: BP 142/88; PULSE 78; RESP 18; TEMP 36.4; O2SAT 95; BMI 32.1
--- NOTE | 2019-07-06 20:05 | ED.VIS.GEN ---
History of Present Illness Chief Complaint: Edema Informant: Patient Onset: Days - 5 Context: Gradual Onset Timing: Continuous Quality: swelling, burning, tightness Location: both lower extremities Current Severity: Moderate Maximum Severity: Moderate Worsened by: nothing in particular Relieved by: nothing Associated Symptoms: none Narrative: Patient states he has been drinking a lot of water and has history of chronic kidney problems. He states he is still urinating about the same as usual. He usually does not have much in the way of swelling in his legs but in the last 5 days or so they have been significantly swollen. He has not seen his PCP for this yet prior to coming to the ER. Denies any orthopnea, shortness of breath, chest pain, palpitations. No known history of CHF. Denies any abdominal discomfort, he has some chronic diarrhea that is unchanged. Several weeks ago he had a respiratory illness that is gone now. He states he had a prostatic stent placed due to difficulty making good stream of urine, which seems to be working well since he is urinating well now. That was placed about 1 month ago. - Past Medical History (1) CKD (chronic kidney disease) Status: Chronic (2) Diffuse large B-cell lymphoma of intra-abdominal lymph nodes Status: Chronic (3) Hypercholesteremia Status: Chronic (4) Lymphoma of small bowel Status: Chronic (5) Mitral valve disorder Status: Chronic (6) Non-Hodgkin lymphoma in remission Status: Chronic (7) Osteoarthritis Status: Chronic (8) RBBB (right bundle branch block with left anterior fascicular block) Status: Chronic (9) Sequelae of Guillain-Kirkwood syndrome Status: Chronic Past Medical History - Allergies and Home Meds Allergies/Adverse Reactions: Allergies ampicillin Adverse Reaction (Intermediate, Verified 07/06/19 18:50) rectal yeast gabapentin Adverse Reaction (Mild, Verified 07/06/19 18:50) goofy groggy diltiazem Adverse Reaction (Verified 07/06/19 18:50) Stasis edema erythromycin base [Erythromycin Base] Adverse Reaction (Verified 07/06/19 18:50) YEAST INFECTION YEAST INFECTION lisinopril Adverse Reaction (Verified 07/06/19 18:50) cough meperidine [From Demerol] Adverse Reaction (Verified 07/06/19 18:50) Nausea niacin Adverse Reaction (Verified 07/06/19 18:50) FEELS LIKE ON FIRE FEELS LIKE I'M ON FIRE Primary Care Physician: Abhay Wilson MD [Primary Care Provider] - Surgical History: herniorrhaphy, total knee arthroplasty - Bilateral, - - Right hemicolectomy, L4-L5 lumbar surgery, sinus surgery Lives: Spouse/ Significant Other Smoking Status: Former smoker - Family History Maternal Family History: Family History (Last Reviewed 04/20/19 @ 13:21 by Mary Danielle) Mother Heart disease Grandmother Diabetes Brother Hypertension Family History: Reports: Heart Disease Paternal Family History: Family History (Last Reviewed 04/20/19 @ 13:21 by Mary Danielle) Mother Heart disease Grandmother Diabetes Brother Hypertension Family History: Reports: - - Cirrhosis Review of Systems General: Denies: Chills, Fever, Sweats Eyes: Denies: Visual changes - bilaterally, Diplopia ENT: Denies: Rhinorrhea, Sore throat Cardiovascular: Denies: Chest pain, Palpitations, Heart racing Respiratory: Denies: Dyspnea, Cough, Dyspnea on exertion, Orthopnea Gastrointestinal: Denies: Abdominal pain, Nausea, Vomiting, Diarrhea, Melena, Hematochezia Genitourinary: Denies: Dysuria, Hematuria, Frequency Musculoskeletal: Reports: Swelling, Extremity Pain - Worse than usual both legs. Has chronic neuropathic pain distally in feet.. Denies: Back pain Skin: Denies: Rash, Wounds Neurological: Denies: Headache, Weakness, Numbness Physical Exam Vital Signs/Narrative: Vital Signs Temp Pulse Resp BP Pulse Ox 07/06/19 18:50 97.5 F L 78 18 142/88 H 95 Inital Vital Signs reviewed: Yes General: Well nourished, Well developed, No Acute Distress Head: Normocephalic, Atraumatic Eyes: Perrl, EOMI ENT: Moist mucous membranes, No rhinorrhea Neck: Supple, Nontender, No JVD Cardiovascular: Regular rate, Regular rhythm, No murmurs, Normal S1, Normal S2 Respiratory: No distress, CTA bilaterally, Chest nontender Abdomen: Soft, Nontender, Nondistended, Normal bowel sounds Back: Nontender, Normal Inspection Extremities: Tenderness - Diffusely both lower extremities were edematous, Edema - 2-3+/4 edema both lower extremities, fairly symmetric. No palpable cords. Skin: Normal color, No rash, No Trauma Neurological: Alert, Oriented x3, Cranial nerves II-XII grossly intact, Normal Strength, Normal Sensation Psychological: Normal affect, Normal Mood Diagnostic/Tx/Re-eval Laboratory Results 07/06/19 07/06/19 19:53 19:53 WBC 9.6 RBC 4.40 L Hgb 13.8 Hct 42.1 MCV 95.7 H MCH 31.4 MCHC 32.8 RDW Std Deviation 49.1 H RDW Coeff of Nico 14.2 Plt Count 203 MPV 9.8 Immature Gran % (Auto) 0.300 Neut % (Auto) 60.5 Lymph % (Auto) 18.9 L [place] % (Auto) 8.9 Eos % (Auto) 10.4 H Baso % (Auto) 1.0 Absolute Neuts (auto) 5.8 Absolute Lymphs (auto) 1.81 Nucleated RBC % 0 Sodium 139 Potassium 4.8 Chloride 105 Carbon Dioxide 27.0 Anion Gap 7 BUN 25 H Creatinine 1.73 H Estim Creat Clear Calc 38.28 Est GFR (MDRD) Af Amer 49 L Est GFR (MDRD) Non-Af 40 L BUN/Creatinine Ratio 14.5 Glucose 80 Calcium 8.9 - Medical Decision Making Patient has chronic renal insufficiency, his creatinine is improved compared with his prior today. Certainly at his age he could have chronic lower extremity venous insufficiency, and with his excessive fluid intake and renal insufficiency, this could explain his edema. There are no signs or symptoms of cardiac etiologies at this time. He was given Lasix and urinated. He is able to ambulate. I do not see any signs of obvious cellulitis, and his legs are fairly symmetrically swollen, maybe a little worse on the left. DVT is highly unlikely here given the simultaneous nature of both sides. I think it is reasonable to give him a prescription for Lasix and have him follow-up with his doctor, and return if he develops any thoracic symptoms such as dyspnea, orthopnea, or near syncope. They are comfortable with this overall plan. ED Disposition - Plan for ED Patient: Disposition: Home or Assisted Living Diagnosis: CKD (chronic kidney disease), Bilateral lower extremity edema Instructions: ED Peripheral Edema, Bilateral Prescriptions: Furosemide [Lasix] 20 mg PO BID #12 tab Prescription Printed Referrals: Abhay Wilson MD [Primary Care Provider] - 3-5 Days
[2019-07-06 20:39] LABS: Absolute Lymphocyte Count 1.81 X10^3/uL (0.83-4.51); Absolute Neutrophil Count 5.8 X10^3/uL (2.0-7.7); Eosinophils% 10.4 % (0-5); Hematocrit 42.1 % (40-54); Hemoglobin 13.8 g/dL (13.0-16.5); Lymphocyte # 1.81 X10^3/ul (4.0); Lymphocyte % 18.9 % (19-41); Mean Corp Hgb Conc 32.8 g/dL (32-36); Mean Corpuscular Hgb 31.4 pg (27.0-32.0); Mean Corpuscular Volume 95.7 fL (80-94); Mean Platelet Vol. 9.8 fl (6.2-12.0); Monocyte# 0.85 X10^3/uL; Monocyte% 8.9 % (0-10); NRBC Flagged by Analyzer 0 % (0-5); Neutrophil # 5.81 X10^3/uL (2.7-7.7); Neutrophil % 60.5 % (47-70); Platelet Count 203 K/mm3 (150-450); RBC Distribution Width CV 14.2 % (11.6-14.6); RBC Distribution Width SD 49.1 fl (35.1-43.9); White Blood Count 9.6 K/mm3 (4.4-11.0)
[2019-07-06 20:59] LABS: Anion Gap 7 (5-15); BUN 25 mg/dL (7-18); BUN/Creat Ratio 14.5 RATIO (10-20); Calcium,Total 8.9 mg/dL (8.5-10.1); Chloride 105 mmol/L (98-107); Creatinine, Serum 1.73 mg/dL (0.70-1.30); EST Glomerular Filtration Rate 40 mL/min (>60); Est Glom Filt Rate - Afr Amer 49 mL/min (>60); Estimated Creatinine Clearance 38.28 ml/min; Glucose 80 mg/dL (74-106); Potassium 4.8 mmol/L (3.5-5.1); Sodium Level 139 mmol/L (136-145)
[2019-07-06] MEDS: Furosemide 20 MG/2 ML VIAL IV (21:11)
[2019-07-06 21:12] VITALS: RESP 16
[2019-07-06 22:07] VITALS: BP 136/72; PULSE 81; RESP 18; O2SAT 95
== END 2019-07-06 22:08 | disposition home or self-care (01) ==
PROVIDERS: Emergency Provider Emergency Medicine; PCP Family Medicine
DX: N18.9 Chronic kidney disease, unspecified (principal); R60.0 Localized edema; Z87.891 Personal history of nicotine dependence; Z79.899 Other long term (current) drug therapy; Z79.82 Long term (current) use of aspirin
CPT/HCPCS: 80048; 85025; 96374; 99285; A4216; J1940

== ENCOUNTER → 2021-02-27 12:01 | Outpatient (CLI) | payer MEDICARE, SELFPAY ==
[2021-02-27 12:56] LABS: Hematocrit 46.6 % (40-54); Hemoglobin 15.6 g/dL (13.0-16.5); Mean Corp Hgb Conc 33.5 g/dL (32-36); Mean Corpuscular Hgb 31.3 pg (27.0-32.0); Mean Corpuscular Volume 93.6 fL (80-94); Mean Platelet Vol. 9.6 fl (6.2-12.0); Platelet Count 247 K/mm3 (150-450); RBC Distribution Width CV 14.1 % (11.6-14.6); RBC Distribution Width SD 48.3 fl (35.1-43.9); Red Blood Count 4.98 M/mm3 (4.6-6.2); White Blood Count 12.4 K/mm3 (4.4-11.0)
== END ==
PROVIDERS: PCP Family Medicine; Referring Provider Family Medicine
DX: N18.30 Chronic kidney disease, stage 3 unspecified (principal)
CPT/HCPCS: 36415; 85027

== ENCOUNTER 2021-05-13 12:16 | Day surgery (SDC) | payer MEDICARE, SELFPAY ==
[2021-05-13] VITALS (7 sets, daily range): BP systolic 118–163; BP diastolic 70–96; PULSE 74–84; RESP 16–20; TEMP 36.2–36.6; O2SAT 98–100; BMI 32.8
[2021-05-13] MEDS: Lactated Ringers 1,000 ML 15 ML IV (12:56)
--- NOTE | 2021-05-13 13:09 | HP.PCM_ITS ---
History and Physical Date of Admission: 05/13/21 85 M who presents to the office today for Previously saw Dr. Montoya. 03/12/2014 he had surgery to address cancer and removed part of small intestine, colon and ileocecal valve. Went through chemotherapy and radiation also. 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 Of note he has Non-Hodgkin Lymphoma and is currently in remission. Follows with Dr. Dickinson at [facility] for this. Dr. 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 Treated with R-CHOP and Velcade, in remission. On surveillance. He has a lot of abdominal pain following morning coffee that means he needs to have a bowel movement which may be loose or mushy and has multiple throughout the morning. Feels like there is something pinched and has to move back and forth to promote continued BM. He has takes cholestyramine four times a day, metamucil. However, he continues to feel that the bowel movements are full of acid and causes him to have burning and discomfort externally. Sitz bathes help with discomfort. 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 ROS Const Constitutional: Positive for weakness Eyes Eyes: Positive for blurry vision and Light sensitivity ENT ENT: Positive for hearing loss, tinnitus and nasal congestion Resp Respiratory: Positive for wheezing Cardio Cardiology: Positive for shortness of breath Gastro GI: Positive for abdominal pain, bloating, change in bowel habits, constipation and diarrhea Musc Musculoskeletal: Positive for back pain, muscle cramps, numbness, tingling, A rthritis, restless legs and leg pain at night Skin Skin: Positive for itchy eyes Neuro Neurology: Positive for weakness, numbness, tingling and restless legs Endo Endocrine: Positive for cold intolerance and increased thirst/drinking Aller/Imm Allergy/Immunologic: Positive for itchy eyes and wheezing Eber/Lymp Hematologic/Lymphatic: Positive for easy bruising Exam Const General: cooperative and comfortable Nutritional Appearance: average body habitus and well nourished [facility] Head: normal to inspection Ears: hearing grossly normal bilaterally Nose: external nose normal Face and sinus: normal facial exam Mouth: oral mucosae normal Throat: posterior oropharynx normal Eyes General: appearance normal, both eyes and all related structures Neck Neck: normal visual inspection Chest Chest palpation & inspection: normal inspection of the chest and normal palpation of entire chest wall Resp Effort & Inspection: normal respiratory effort Auscultation: Bilateral: Clear to Auscultation Cardio Palpation: normal PMI Rate: regular rate Rhythm: regular rhythm GI Inspection: normal to inspection Auscultation: normal bowel sounds Percussion: normal to percussion Palpation: no hepatosplenomegaly Skin General: no rashes or lesions noted Neuro General: patient alert Extrem General: normal to inspection Psych Affect: normal affect Quality Reporting Tobacco Screening ([facility] 138) Smoking Status: Former smoker Assessment and Plan Assessment and Plan (1) Change in bowel habits: Status: Acute Plan - Dr. Jackson Friend, DO: He originally presented with abdominal pain pain in 2013. CT abdomen on 01/29/2014 showed bulky adenopathy in the mesentery of the small bowel and cecum. He had exploratory laparotomy with resection of the ileum as well as right hemicolectomy and extensive mesenteric lymph node dissection with primary ileocolonic. On 03/22/2014 at in [place]. Pathology showed diffuse large B cell lymphoma involving the ileum and cecal area, mesenteric lymph nodes were also involved with lymphoma, some of the mesenteric lymph nodes also had low-grade follicular lymphoma. Bone marrow biopsy on 04/30/2014 showed normocellular marrow with focal involvement by low-grade B cell lymphoma. He was diagnosed with non-Hodgkin's lymphoma large B cell and follicular type. He was treated with 6 cycles of R- CHOP plus Bortezumib. PET CT scan on 12/03/2014 showed complete remission. The differential diagnosis for change in bowel habits to include a stricture at the anastomosis. Microscopic colitis, bile acid diarrhea, IBS with diarrhea clinical colonoscopy and endoscopy with evaluation of esophagus stomach small bowel and colon biopsies. I have re-examined the patient. There are no clinical changes since date of exam.
--- NOTE | 2021-05-13 13:30 | EGD_PTH ---
PATIENT: AMBERLY PAZ LOC: [facility] U#:[id number] AGE/SX: 85/M ROOM: RE05/13/[address]: Dr. Manuel Padgett DO : 1935 BED: DIS: 05/13/2021 SPEC #: [id number] RECD: 05/13/21 15:02 STATUS: ALISHA JEET #: [id number] GRACIA: 05/13/21 13:[address]: Manuel Padgett DEPT: SURGICAL PATHOLOGY RECD BY: Heather Soares ENTERED: 05/14/21 07:59 SP TYPE: EGD BIOPSY OT DR: Dr. Abhay Wilson MD Tissues: A - Duodenum, NOS B - Gastric mucous membrane C - Esophagus, NOS D - COLON BIOPSY E - Ileum, NOS F - COLON BIOPSY Procedures: Special Stain Group II Surgery Specimen Level IV Alcian Blue/PAS (control) HEADER OPERATION: Colonoscopy, EGD ([facility] [place]) PRE-OP DIAGNOSIS: Change in bowel habits TISSUE SUBMITTED: A ? Duodenum biopsy, B ? Gastric antral ulcer biopsy, C ? Distal esophagus biopsy, D ? Anastomosis biopsy, E ? Terminal ileum biopsy, F ? Random colonic biopsy MICROSCOPIC DIAGNOSIS A. Duodenum, biopsy: Fragments of duodenal mucosa, no pathologic diagnosis. B. Gastric antral ulcer biopsy: Fragments of gastric mucosa with focal ulceration, fibrinous exudation, congestion and chronic inflammation. See comment. C. Distal esophagus, biopsy: Fragments of gastroesophageal mucosa with moderate chronic inflammation. Intestinal metaplasia (goblet cell metaplasia) not identified. See comment. D. Anastomosis, biopsy: Fragments of small intestinal and colonic mucosa with focal ulceration, acute and chronic inflammation and granulation tissue reaction. Negative for malignancy. E. Terminal ileum, biopsy: Superficial fragments of small intestinal mucosa, no pathologic diagnosis. F. Colon, random biopsy: Fragments of colonic mucosa, no pathologic diagnosis. SJ:raza 05/15/2021 COMMENT B. The results of immunohistochemistry for Helicobacter pylori will be reported separately ([id number]). C. Alcian blue/PAS stain with matched control is used in the evaluation of the specimen. MICROSCOPIC DESCRIPTION Slides are reviewed. GROSS DESCRIPTION A - Received in fixative is one container labeled with the patient's name and designated duodenum biopsy. The specimen consists of multiple irregular fragments of light cortes soft tissue that in aggregate measure 1 x 0.3 x 0.1 cm. The specimen is totally submitted in one cassette. B - Received in fixative is one container labeled with the patient's name and designated gastric antral ulcer biopsy. The specimen consists of multiple irregular fragments of light cortes soft tissue that in aggregate measure 2 x 0.3 x 0.1 cm. The specimen is totally submitted in one cassette. C - Received in fixative is one container labeled with the patient's name and designated distal esophagus biopsy. The specimen consists of multiple irregular fragments of light cortes soft tissue that in aggregate measure 0.5 x 0.5 x 0.1 cm. The specimen is totally submitted in one cassette. D - Received in fixative is one container labeled with the patient's name and designated anastomosis biopsy. The specimen consists of multiple irregular fragments of light cortes soft tissue that in aggregate measure 1 x 0.5 x 0.1 cm. The specimen is totally submitted in one cassette. E - Received in fixative is one container labeled with the patient's name and designated terminal ileum biopsy. The specimen consists of two irregular fragments of light cortes soft tissue that in aggregate measure 0.6 x 0.3 x 0.1 cm. The specimen is totally submitted in one cassette. F - Received in fixative is one container labeled with the patient's name and designated random colonic biopsy. The specimen consists of multiple irregular fragments of light cortes soft tissue that in aggregate measure 2 x 1 x 0.1 cm. The specimen is totally submitted in one cassette. / LIZZ:raza 05/14/21 TC:2 CPT: 01879 x6
--- NOTE | 2021-05-13 13:30 | IMM_PTH ---
PATIENT: AMBERLY PAZ LOC: EN U#:[id number] AGE/SX: 85/M ROOM: RE05/13/[address]: Dr. Manuel Padgett DO : 1935 BED: DIS: 05/13/2021 SPEC #: [id number] RECD: 05/14/21 09:41 STATUS: ALISHA RERoque #: [id number] GRACIA: 05/13/21 13:[address]: Manuel Padgett DEPT: IMMUNOHISTOCHEMISTRY RECD BY: Johana Shin ENTERED: 05/14/21 09:42 SP TYPE: IMMUNO OTHR DR: Dr. Abhay Wilson MD Tissues: B - Stomach, NOS Procedures: H Pylori (initial) PHYSICIAN & INSTITUTION [place] [address] SPECIMEN INFORMATION: Tissue Source: B ? Gastric antral ulcer biopsy Clinical Info: Change in bowel habits Specimen Number: [id number] CPT code: 45685 METHODOLOGY: Deparaffinized sections of prefer/formalin-fixed tissue or PAP/DQ stained slides are incubated with monoclonal/polyclonal antibodies/oligonucleotide probes. Localization is made via biotin free immunoperoxidase method. Appropriate controls are performed and reacted as expected. Results on target cell population are indicated in the following table: RESULTS: ANTIBODY / CLONE RESULT Block B H Pylori (polyclonal) negative These tests were developed and their performance characteristics determined by [facility]. They may not have been cleared or approved by the [place].S. Food and Drug Administration. The FDA has determined that such clearance or approval is not necessary. INTERPRETATION: B. Gastric antral ulcer, biopsy: Negative for Helicobacter pylori organisms. SJ:raza 05/15/2021
--- NOTE | 2021-05-13 14:50 | OP.CCLET_ITS ---
01/15/2022 Abhay Wilson Re : Upper GI endoscopy procedure for Benjamín Salinas Steve This procedure was performed on Thursday, May 13, 2021. My impressions and recommendations are as follows: Impressions : - LA Grade A reflux esophagitis. Biopsied. - Non-bleeding gastric ulcers with pigmented material. Biopsied. - Multiple non-bleeding duodenal ulcers with no stigmata of bleeding. Biopsied. Recommendations : - Discharge patient to home. - Resume previous diet. - Continue present medications. - Use Protonix (pantoprazole) 40 mg PO BID for 8 weeks. - Use sucralfate tablets 1 gram PO QID for 4 weeks. My findings are described in the full procedure note, which is enclosed. If I can be of further assistance, please feel free to contact me at . Sincerely, Manuel Friend, 05/13/2021 2:49:47 PM This report has been signed electronically.
--- NOTE | 2021-05-13 14:50 | OP.EGD_ITS ---
Patient Name: Benjamín Dunbar Procedure Date: 05/13/2021 1:42 PM Date of : 1935 Age: 85 Procedure: Upper GI endoscopy Indications: Failure to respond to medical treatment Providers: Manuel Padgett DO Medicines: See the Anesthesia note for documentation of the administered medications Patient Profile: This is an 85 year old male. Refer to note in patient chart for documentation of history and physical. Patient has symptoms of acute epigastric abdominal pain. Complications: No immediate complications. Procedure: Pre-Anesthesia Assessment: - Prior to the procedure, a History and Physical was performed, and patient medications and allergies were reviewed. The risks and benefits of the procedure and the sedation options and risks were discussed with the patient. All questions were answered and informed consent was obtained. Patient identification and proposed procedure were verified by the physician in the pre-procedure area. Mental Status Examination: alert and oriented. Airway Examination: normal oropharyngeal airway and neck mobility. Respiratory Examination: clear to auscultation. CV Examination: normal. Prophylactic Antibiotics: The patient does not require prophylactic antibiotics. Prior Anticoagulants: The patient has taken no previous anticoagulant or antiplatelet agents. ASA Grade Assessment: II - A patient with mild systemic disease. After reviewing the risks and benefits, the patient was deemed in satisfactory condition to undergo the procedure. The anesthesia plan was to use moderate sedation / analgesia (conscious sedation). Immediately prior to administration of medications, the patient was re-assessed for adequacy to receive sedatives. The heart rate, respiratory rate, oxygen saturations, blood pressure, adequacy of pulmonary ventilation, and response to care were monitored throughout the procedure. The physical status of the patient was re-assessed after the procedure. After obtaining informed consent, the endoscope was passed under direct vision. Throughout the procedure, the patient's blood pressure, pulse, and oxygen saturations were monitored continuously. The pediatric colonoscope was introduced through the mouth, and advanced to the second part of duodenum. The upper GI endoscopy was accomplished without difficulty. The patient tolerated the procedure well. Moderate Sedation: Moderate (conscious) sedation was administered by the endoscopy nurse and supervised by the endoscopist. The patient's oxygen saturation, heart rate, blood pressure and response to care were monitored. Total physician intraservice time was 15 minutes. Scope In: 2:00:56 PM Scope Out: 2:11:23 PM Total Procedure Duration Time 0 hours 10 minutes 27 seconds Findings: LA Grade A (one or more mucosal breaks less than 5 mm, not extending between tops of 2 mucosal folds) esophagitis with no bleeding was found 34 to 35 cm from the incisors. Biopsies were taken with a cold forceps for histology. Verification of patient identification for the specimen was done. Estimated blood loss was minimal. Three non-bleeding cratered gastric ulcers with pigmented material were found in the gastric antrum. The largest lesion was 6 mm in largest dimension. This was biopsied with a cold forceps for histology. Verification of patient identification for the specimen was done. Estimated blood loss was minimal. Three non-bleeding superficial duodenal ulcers with no stigmata of bleeding were found in the duodenal bulb. The largest lesion was 6 mm in largest dimension. This was biopsied with a cold forceps for histology. Verification of patient identification for the specimen was done. Estimated blood loss was minimal. Impression: - LA Grade A reflux esophagitis. Biopsied. - Non-bleeding gastric ulcers with pigmented material. Biopsied. - Multiple non-bleeding duodenal ulcers with no stigmata of bleeding. Biopsied. Recommendation: - Discharge patient to home. - Resume previous diet. - Continue present medications. - Use Protonix (pantoprazole) 40 mg PO BID for 8 weeks. - Use sucralfate tablets 1 gram PO QID for 4 weeks. Procedure Code(s): --- Professional --- 93179, Esophagogastroduodenoscopy, flexible, transoral; with biopsy, single or multiple 64183, 59, Moderate sedation services provided by the same physician or other qualified health patient care coordinator performing the diagnostic or therapeutic service that the sedation supports, requiring the presence of an independent trained observer to assist in the monitoring of the patient's level of consciousness and physiological status; initial 15 minutes of intraservice time, patient age 5 years or older CPT copyright 2017 [employer]. All rights reserved. The codes documented in this report are preliminary and upon cryptologic technician technical review may be revised to meet current compliance requirements. Manuel Padgett DO 05/13/2021 2:49:47 PM This report has been signed electronically. Number of Addenda: 1 Note Initiated On: 05/13/2021 1:42 PM Addendum Number: 1 Addendum Date: 01/15/2022 6:04:28 AM MAC was used instead of moderate sedation for the patient. Manuel Padgett DO 01/15/2022 6:04:34 AM This report has been signed electronically.
--- NOTE | 2021-05-13 14:56 | OP.COLON_ITS ---
Patient Name: Benjamín Dunbar Procedure Date: 05/13/2021 2:11 PM Date of : 1935 Age: 85 Procedure: Colonoscopy Indications: Chronic diarrhea Providers: Manuel Padgett DO Medicines: See the Anesthesia note for documentation of the administered medications Patient Profile: This is an 85 year old male. Refer to note in patient chart for documentation of history and physical. Patient has symptoms of acute epigastric abdominal pain. Last Colonoscopy: several years ago. Complications: No immediate complications. Procedure: Pre-Anesthesia Assessment: - Prior to the procedure, a History and Physical was performed, and patient medications and allergies were reviewed. The risks and benefits of the procedure and the sedation options and risks were discussed with the patient. All questions were answered and informed consent was obtained. Patient identification and proposed procedure were verified by the physician in the pre-procedure area. Mental Status Examination: alert and oriented. Airway Examination: normal oropharyngeal airway and neck mobility. Respiratory Examination: clear to auscultation. CV Examination: normal. Prophylactic Antibiotics: The patient does not require prophylactic antibiotics. Prior Anticoagulants: The patient has taken no previous anticoagulant or antiplatelet agents. ASA Grade Assessment: II - A patient with mild systemic disease. After reviewing the risks and benefits, the patient was deemed in satisfactory condition to undergo the procedure. The anesthesia plan was to use moderate sedation / analgesia (conscious sedation). Immediately prior to administration of medications, the patient was re-assessed for adequacy to receive sedatives. The heart rate, respiratory rate, oxygen saturations, blood pressure, adequacy of pulmonary ventilation, and response to care were monitored throughout the procedure. The physical status of the patient was re-assessed after the procedure. After I obtained informed consent, the scope was passed under direct vision. Throughout the procedure, the patient's blood pressure, pulse, and oxygen saturations were monitored continuously. The pediatric colonoscope was introduced through the anus and advanced to the terminal ileum. The colonoscopy was performed without difficulty. The patient tolerated the procedure well. The quality of the bowel preparation was good. Moderate Sedation: Moderate (conscious) sedation was administered by the endoscopy nurse and supervised by the endoscopist. The patient's oxygen saturation, heart rate, blood pressure and response to care were monitored. Total physician intraservice time was 15 minutes. Scope In: 2:15:11 PM Scope Withdrawal Time 0 hours 20 minutes 44 seconds Scope Out: 2:43:39 PM Total Procedure Duration Time 0 hours 28 minutes 28 seconds Findings: Hemorrhoids were found on perianal exam. Multiple small and large-mouthed diverticula were found in the recto-sigmoid colon, sigmoid colon, descending colon and splenic flexure. There was no evidence of diverticular bleeding. There was evidence of a prior [id number] ileo-colonic anastomosis in the ascending colon. This was patent and was characterized by congestion, edema, erythema and an intact appearance. The anastomosis was traversed. Biopsies were taken with a cold forceps for histology. Verification of patient identification for the specimen was done. Estimated blood loss was minimal. Scattered mild inflammation characterized by congestion (edema) was found in the entire colon. Biopsies were taken with a cold forceps for histology. Verification of patient identification for the specimen was done. Estimated blood loss was minimal. A scattered area of the distal ileum was congested. Biopsies were taken with a cold forceps for histology. Verification of patient identification for the specimen was done. Estimated blood loss was minimal. Impression: - Hemorrhoids found on perianal exam. - Moderate diverticulosis in the recto-sigmoid colon, in the sigmoid colon, in the descending colon and at the splenic flexure. There was no evidence of diverticular bleeding. - Patent [id number] ileo-colonic anastomosis, characterized by congestion, edema, erythema and an intact appearance. Biopsied. - Scattered mild inflammation was found in the entire examined colon secondary to colitis. Biopsied. - Congested mucosa in the distal ileum. Biopsied. Recommendation: - Discharge patient to home. - Resume previous diet. - Continue present medications. - Await pathology results. - Await pathology results. - Return to my office in 2 weeks. - Repeat colonoscopy is recommended per protocol. The colonoscopy date will be determined after pathology results from today's exam become available for review. Procedure Code(s): --- Professional --- 60871, Colonoscopy, flexible; with biopsy, single or multiple 08421, 59, Moderate sedation services provided by the same physician or other qualified health care technician performing the diagnostic or therapeutic service that the sedation supports, requiring the presence of an independent trained observer to assist in the monitoring of the patient's level of consciousness and physiological status; initial 15 minutes of intraservice time, patient age 5 years or older CPT copyright 2017 [employer]. All rights reserved. The codes documented in this report are preliminary and upon ammunition storekeeper review may be revised to meet current compliance requirements. Manuel Padgett DO 05/13/2021 2:55:54 PM This report has been signed electronically. Number of Addenda: 1 Note Initiated On: 05/13/2021 2:11 PM Addendum Number: 1 Addendum Date: 01/15/2022 6:04:44 AM MAC was used instead of moderate sedation for the patient. Manuel Padgett DO 01/15/2022 6:04:49 AM This report has been signed electronically.
--- NOTE | 2021-05-13 14:56 | OP.CCLET_ITS ---
01/15/2022 Abhay Wilson Re : Colonoscopy procedure for Benjamín Jean-Baptister Steve This procedure was performed on Thursday, May 13, 2021. My impressions and recommendations are as follows: Impressions : - Hemorrhoids found on perianal exam. - Moderate diverticulosis in the recto-sigmoid colon, in the sigmoid colon, in the descending colon and at the splenic flexure. There was no evidence of diverticular bleeding. - Patent [id number] ileo-colonic anastomosis, characterized by congestion, edema, erythema and an intact appearance. Biopsied. - Scattered mild inflammation was found in the entire examined colon secondary to colitis. Biopsied. - Congested mucosa in the distal ileum. Biopsied. Recommendations : - Discharge patient to home. - Resume previous diet. - Continue present medications. - Await pathology results. - Await pathology results. - Return to my office in 2 weeks. - Repeat colonoscopy is recommended per protocol. The colonoscopy date will be determined after pathology results from today's exam become available for review. My findings are described in the full procedure note, which is enclosed. If I can be of further assistance, please feel free to contact me at . Sincerely, Manuel Padgett, 05/13/2021 2:55:54 PM This report has been signed electronically.
== END 2021-05-13 23:59 | disposition home or self-care (01) ==
LOC: EN 12:20 → AC 12:21
PROVIDERS: PCP Family Medicine; Referring Provider Family Medicine; Visit Provider Internal Medicine Gastroenterology
PROC: 0DJD8ZZ Inspection of Lower Intestinal Tract, Via Natural or Artificial Opening Endoscopic (ICD-10-PCS; CPT 45378; principal; 2021-05-13 13:25)
DX: K25.9 Gastric ulcer, unspecified as acute or chronic, without hemorrhage or perforation (principal); K52.9 Noninfective gastroenteritis and colitis, unspecified; K26.9 Duodenal ulcer, unspecified as acute or chronic, without hemorrhage or perforation; K64.9 Unspecified hemorrhoids; K57.30 Diverticulosis of large intestine without perforation or abscess without bleeding; Z87.891 Personal history of nicotine dependence; K21.00 Gastro-esophageal reflux disease with esophagitis, without bleeding; J45.909 Unspecified asthma, uncomplicated; N18.9 Chronic kidney disease, unspecified; E78.00 Pure hypercholesterolemia, unspecified; M19.90 Unspecified osteoarthritis, unspecified site; Z79.899 Other long term (current) drug therapy; I12.9 Hypertensive chronic kidney disease with stage 1 through stage 4 chronic kidney disease, or unspecified chronic kidney disease; G62.9 Polyneuropathy, unspecified; Z86.718 Personal history of other venous thrombosis and embolism; Z87.19 Personal history of other diseases of the digestive system; Z85.72 Personal history of non-Hodgkin lymphomas; R19.7 Diarrhea, unspecified
CPT/HCPCS: 45380; 43239; 87493; 87506; 88305; 88313; 88342; J7120; J2405

== ENCOUNTER 2021-12-05 21:47 | Emergency (ER) | payer MEDICARE, SELFPAY ==
[2021-12-05 21:48] VITALS: BP 168/87; PULSE 97; RESP 16; TEMP 36.7; O2SAT 93; BMI 30.9
--- NOTE | 2021-12-05 23:29 | EX.ED.DYSGE1 ---
HPI History of Present Illness Chief Complaint: General Illness Detail of Chief Complaint: Right flank pain Informant: patient Onset/Context/Timing Onset: Yesterday Context: Gradual Onset Timing: Continuous Quality: Pain Location: Right upper quadrant/flank Current Severity: Moderate Maximum Severity: Severe Worsened by: Coughing, deep breath, moving Relieved by: Remaining still and not coughing Associated Symptoms Associated Symptoms: Fever. Chronic cough with occasional sputum production unchanged. Narrative Narrative: Patient states he had gradual onset of pain in his right flank/right upper quadrant, no nausea or vomiting, it is worse with coughs and deep inspiration as well as movement especially with sitting up actively. He states he developed a fever up to 100 today that he treated prior to coming here. States the pain is a 5 when he is not doing anything but it is severe whenever he makes it worse. He has had prior cholecystectomy as well as a partial bowel resection, multiple other abdominal surgeries see the history, he had non-Hodgkin's lymphoma and abdominal surgery for this, as well as several ventral herniorrhaphies. He has chronic stool abnormalities he thinks it is more on the diarrhea side, his last bowel movement was today and similar to new usual. No new urinary symptoms or hematuria. [facility] Medical History Abnormality of gait Anxiety Arthritis Asthma Back pain Bladder disease Cancer Cardiology follow-up encounter Change in bowel habits CKD (chronic kidney disease) Diarrhea Diffuse large B-cell lymphoma of intra-abdominal lymph nodes DVT (deep venous thrombosis) Former smoker History of edema History of IBS History of irregular heartbeat History of pain when walking History of renal disease History of stress test Hypercholesteremia Hypertension Injury of head and neck Lymphoma of small bowel Mitral valve disorder Neuropathy Nocturia Osteoarthritis RBBB (right bundle branch block with left anterior fascicular block) Rectal pain Sequelae of Guillain-Dimock syndrome Shortness of breath on exertion Syncope Wears glasses Home Medications aspirin 81 mg chewable tablet 81 mg PO DAILY@0800 01/31/14 [History Last Taken 01/06/19] hydrochlorothiazide 25 mg tablet 25 mg PO DAILY 01/31/14 [History Last Taken 01/06/19] acetaminophen 325 mg tablet 650 mg PO Q4H PRN Pain Or Temp > 101 03/28/14 [History Last Taken 01/05/19] calcium carbonate 200 mg calcium (500 mg) chewable tablet 500 mg PO Q4H PRN PRN Indigestion 03/18/17 [Rx Last Taken Unknown] cholecalciferol (vitamin D3) 25 mcg (1,000 unit) tablet 1,000 unit PO DAILY 07/21/18 [History Last Taken 01/06/19] loratadine 10 mg tablet 10 mg PO DAILY 07/21/18 [History Last Taken 01/06/19] nitroglycerin 0.4 mg sublingual tablet 0.4 mg sublingual Q5M PRN Chest Pain 07/21/18 [History Last Taken Unknown] cholestyramine (with sugar) 4 gram powder for susp in a packet 4 g PO 4X/DAY 10/19/18 [History Last Taken 01/06/19] osoalyfp-asb-grptf acid 300 mcg-lycopene 600 mcg-lutein 300 mcg tablet 1 ea PO DAILY supplement 01/06/19 [History Last Taken 01/06/19] fzqid-7d-edr-epa-fish oil-D3 300 mg-1,200 mg-1,000 unit capsule 1 ea PO DAILY supplement 01/06/19 [History Last Taken 01/06/19] vit A 7,160 unit-C 113 mg-E 100 lhqu-uwjx-qwsamk tablet,delayed rel. 1 tab PO BID eye health 01/06/19 [History Last Taken 01/06/19] gabapentin 100 mg capsule 300 mg PO TID 01/23/19 [History Last Taken Unknown] tamsulosin 0.4 mg capsule 0.4 mg PO BID 01/23/19 [History Last Taken Unknown] albuterol sulfate 2.5 mg/3 mL (0.083 %) solution for nebulization 2.5 mg (3 mL) inhalation Q4H PRN shortness of breath or wheezing #180 mL 10/23/19 [Rx Last Taken Unknown] budesonide 0.5 mg/2 mL suspension for nebulization 0.5 mg (2 mL) inhalation BID #120 mL 10/23/19 [Rx Last Taken Unknown] fluticasone propionate 50 mcg/actuation nasal spray,suspension 2 spray intranasal QHS PRN Nasal Congestion #18.2 mL 10/23/19 [Rx Last Taken Unknown] pantoprazole 40 mg tablet,delayed release 40 mg PO BID #60 tabs 05/13/21 [Rx Last Taken Unknown] sucralfate 1 gram tablet 1 g PO QAC #90 tabs 05/14/21 [Rx Last Taken Unknown] colestipol 1 gram tablet 1 g PO BID #60 tabs 05/17/21 [Rx Last Taken Unknown] diphenoxylate-atropine 2.5 mg-0.025 mg tablet (Lomotil) 1 tab PO TID PRN diarrhea #90 tabs 05/17/21 [Rx Last Taken Unknown] hydrocortisone acetate 30 mg rectal suppository 25 mg ID BID 30 days #12 ea 05/17/21 [Rx Last Taken Unknown] hydrocortisone 2.5 % topical cream 1 applic topical TID #30 grams 05/27/21 [Rx Last Taken Unknown] dqcexc-kzeozcbu-qxbdpbu 24,000-76,000-120,000 unit capsule,delayed rel (Creon) 1 cap PO TID #180 caps 09/23/21 [Rx Last Taken Unknown] azithromycin 250 mg tablet 250 mg PO QHS #4 TABLETS 12/06/21 [Rx Last Taken Unknown] Allergy/AdvReac Type Severity Reaction Status Date / Time ampicillin AdvReac Intermediate rectal Verified 12/05/21 21:51 yeast gabapentin AdvReac Mild goofy Verified 12/05/21 21:51 groggy diltiazem AdvReac Stasis Verified 12/05/21 21:51 edema erythromycin base AdvReac YEAST Verified 12/05/21 21:51 [Erythromycin Base] INFECTION lisinopril AdvReac cough Verified 12/05/21 21:51 meperidine [From Demerol] AdvReac Nausea Verified 12/05/21 21:51 niacin AdvReac FEELS Verified 12/05/21 21:51 LIKE ON FIRE Family History Mother Heart disease Grandmother Diabetes Brother Hypertension Surgical History History of appendectomy History of cholecystectomy History of colectomy History of hemicolectomy History of hernia repair History of laminectomy History of tonsillectomy History of total left knee replacement History of total right knee replacement Hx of cholecystectomy Hx of colonoscopy Hx of ventral hernia repair S/P anal fissurectomy Social History Smoking Status: Former smoker how long ago did patient quit smokin, 1ppd second hand exposure: Yes ROS ROS ED Constitutional Constitutional ED: Denies chills or fever(s) Eyes Eyes: Denies change in vision or diplopia ENT ENT ED: Denies rhinorrhea or sore throat Cardiovascular Cardiovascular: Denies chest pain, palpitations or racing heartbeat Respiratory/Chest Respiratory/Chest: Reports as per HPI, cough and sputum; Denies dyspnea Gastrointestinal Gastrointestinal: Reports abdominal pain; Denies diarrhea, nausea or vomiting Genitourinary Genitourinary ED: Reports flank pain; Denies dysuria or hematuria Musculoskeletal Musculoskeletal: Reports back pain; Denies neck pain Integumentary Denies abscess or rash Neurologic Neurologic: Denies headache(s), paresthesias or weakness Psychiatric Psychiatric: Denies anxiety or suicidal thoughts EXAM Physical Exam Const Vital Signs: 12/05/21 21:48 12/06/21 00:06 Temperature 98.1 F Temperature Source Temporal Pulse Rate 97 Respiratory Rate 16 16 Blood Pressure 168/87 H Blood Pressure Mean 114 Pulse Ox 93 Oxygen Delivery Method Room Air Positive well nourished and well developed Constitutional Narrative: Well-appearing, conversive in full sentences, no distress General Appearance ED: well developed and NAD HEENT Reports moist mucous membranes normocephalic and atraumatic Eyes PERRL and EOMs intact bilaterally Neck full ROM and supple Chest Wall inspection of chest normal and palpation of chest normal Chest Narrative: All of right-sided ribs nontender, not reproducing patient's pain with palpation. No rashes. Resp normal respiratory effort and clear to auscultation bilaterally Cardio regular rate, regular rhythm and no murmurs Rate: Negative for tachycardic GI non-distended GI Narrative: Tender lateral right upper quadrant and throughout lateral flank/mid right abdomen. No guarding or rebound tenderness. No palpable masses. No [place] sign or Álvarez [place] sign. No pulsatile masses. Auscultation: normoactive bowel sounds Palpation: soft Back/Spine no CVA tenderness General Back: other FROM Extremity normal to inspection General Extremety ED: Yes edema; Negative for pulses abnormal or tenderness General Extremity: edema bilateral lower extremity Details: mild (Symmetric, no signs of chronic stasis dermatitis); Negative for pulses abnormal Neuro oriented x3, CN's II-XII intact bilaterally and no sensory deficits noted Sensorium / Orientation: awake and alert Motor Exam: strength 5/5 throughout Psych mental status grossly normal Skin no rashes or lesions noted and no wounds MDM MDM MDM Narrative Medical decision making narrative: Chest x-ray hints at a right lower lobe infiltrate. However given his abdominal tenderness, I felt continuing with CT of the abdomen/pelvis was indicated, given that the differential includes right upper quadrant processes, ureterolithiasis, pyelonephritis, perforated viscus, bowel obstruction, in addition to pneumonia and pulmonary embolus. The CT shows no acute intra-abdominal process but does confirm a right lower lobe infiltrate, and I think this is most compatible with the patient's symptoms including the fever she was having at home. I do not think he needs to be evaluated for pulmonary embolus given the symptoms. Given that he has a leukocytosis of 13.1, which is relatively mild with no bandemia, I did obtain blood cultures since he is ambulatory without hypoxemia feeling well enough to be treated at home. He was initially given Rocephin 2 g in addition to azithromycin 500 mg, we will discharge home on azithromycin, discussed with patient and family they are comfortable with that plan and following up as an outpatient after the weekend. We discussed reasons to return which include dyspnea, worsening condition/other symptoms. Lab Data Attestation: I reviewed the patient's lab results. Labs: Laboratory Results - last 24 hr 12/05/21 12/05/21 12/05/21 22:35 22:35 23:53 WBC 13.1 H RBC 4.44 L Hgb 14.0 Hct 42.7 MCV 96.2 H MCH 31.5 MCHC 32.8 RDW Std Deviation 47.6 H RDW Coeff of Nico 13.4 Plt Count 189 MPV 10.7 Immature Gran % (Auto) 0.400 Neut % (Auto) 71.8 H Lymph % (Auto) 13.7 L [place] % (Auto) 9.8 Eos % (Auto) 3.8 Baso % (Auto) 0.5 Absolute Neuts (auto) 9.4 H Absolute Lymphs (auto) 1.80 Nucleated RBC % 0 Sodium 141 Potassium 4.1 Chloride 107 Carbon Dioxide 28.0 Anion Gap 6 BUN 23 H Creatinine 1.97 H Estim Creat Clear Calc 31.87 Est GFR (MDRD) Af Amer 42 L Est GFR (MDRD) Non-Af 35 L BUN/Creatinine Ratio 11.7 Glucose 101 Calcium 9.3 Total Bilirubin 0.80 AST 17 ALT 17 Alkaline Phosphatase 52 Total Protein 6.9 Albumin 3.3 Globulin 3.6 Albumin/Globulin Ratio 0.9 Urine Color Yellow Urine Clarity Clear Urine pH 6.0 Ur Specific [place] 1.020 Urine Protein 30 H Urine Glucose (UA) NEGATIVE Urine Ketones 5 H Urine Occult Blood 150 H Urine Nitrite Negative Urine Bilirubin Negative Urine Urobilinogen 1 H Ur Leukocyte Esterase 100 H Urine RBC 5-10 SEEN Urine WBC 5-10 SEEN Ur Squamous Epith Cells 0-5 SEEN Urine Bacteria 1+ Hyaline Casts 0-5 SEEN Urine Mucus 1+ Radiography Diagnostic Testing: Clinical Impression(s) from Imaging Studies Chest X-Ray 12/06/21 00:04 IMPRESSION: Trace blunting of the right costophrenic angle subtle opacity in the right costophrenic angle consider small effusion potentially small infiltrate. Mild Cardiomegaly. Electronically Signed: Erika Gunn MD at 0:33 EDT , Abdomen/Pelvis CT 12/06/21 23:08 IMPRESSION: Bilateral renal atrophy. Bilateral renal stones. No left hydronephrosis however there is a column of at least 4 stones each measuring 4 mm in the distal left ureter. There is postoperative change within the bladder and bladder wall thickening which could contribute to the obstructive appearance. Bilateral renal cysts. Slightly enlarged on the right since prior study slightly change in density since prior study on the left could consider a follow-up routine ultrasound. Stable hepatic cyst. Small cyst left hepatic lobe. Nonvisualization of the gallbladder which may been removed. Constipation and diverticulosis no diverticulitis. Postoperative change right lower quadrant possible appendectomy with remnant appendix. Multilevel degenerative change in the thoracolumbar spine. Small focus right lower lobe pneumonia. Electronically Signed: Erika Gunn MD at 1:54 EDT , Rhythm Strip Rhythm Strip: Sinus Rhythm Rate: 95 Ectopy: None Discharge Plan Triage Chief Complaint: General Illness Other Complaint: Other, Pain/Inj ED Provider: James Arias Dx/Rx/DC Orders Clinical Impression: Right lower lobe pneumonia, Abdominal tenderness in right flank Instructions: ED Pneumonia (Adult) Prescriptions: New azithromycin [azithromycin] 250 mg tablet 250 mg PO QHS Qty: 4 0RF Rx Instructions: start night of 12/07 No Action tamsulosin 0.4 mg capsule 0.4 mg PO BID gabapentin 100 mg capsule 300 mg PO TID albuterol sulfate 2.5 mg /3 mL (0.083 %) solution for nebulization 2.5 mg inhalation Q4H PRN (Reason: shortness of breath or wheezing) Qty: 180 6RF budesonide 0.5 mg/2 mL suspension for nebulization 0.5 mg INHALATION BID Qty: 120 6RF fluticasone propionate 50 mcg/actuation spray,suspension 2 spray INTRANASAL QHS PRN (Reason: Nasal Congestion) Qty: 18.2 6RF hydrocortisone 2.5 % cream 1 applic topical TID Qty: 30 3RF Creon 24,000-76,000 -120,000 unit capsule,delayed release(DR/EC) 1 cap PO TID Qty: 180 5RF Rx Instructions: take three with meals and one with snacks aspirin 81 MG tablet,chewable 81 mg PO DAILY@0800 hydrochlorothiazide 25 MG tablet 25 mg PO DAILY acetaminophen 325 MG tablet 650 mg PO Q4H PRN (Reason: Pain Or Temp > 101) calcium carbonate 500 MG tablet 500 mg PO Q4H PRN PRN (Reason: Indigestion) 0RF nitroglycerin 0.4 MG tablet 0.4 mg sublingual Q5M PRN (Reason: Chest Pain) cholecalciferol (vitamin D3) 1,000 UNIT tablet 1,000 unit PO DAILY loratadine 10 MG tablet 10 mg PO DAILY cholestyramine (with sugar) 4 GM powder in packet 4 g PO 4X/DAY xrcalqqm-xig-KG-lycopen-lutein 1 EACH tablet 1 ea PO DAILY wpvdf-7o-pbp-epa-fish oil-D3 1 EACH capsule 1 ea PO DAILY vitamins A,C,Q-qgvu-qocvgi 1 EACH tablet,delayed release (DR/EC) 1 tab PO BID pantoprazole 40 mg tablet,delayed release (DR/EC) 40 mg PO BID Qty: 60 2RF sucralfate 1 gram tablet 1 g PO QAC Qty: 90 0RF Rx Instructions: take three times a day one hour prior to meals on an empty stomach for thirty days. diphenoxylate-atropine [Lomotil] 2.5-0.025 mg tablet 1 tab PO TID PRN (Reason: diarrhea) Qty: 90 0RF hydrocortisone acetate 30 mg suppository 25 mg ID BID 30 Days Qty: 12 5RF colestipol 1 gram tablet 1 g PO BID Qty: 60 1RF Primary Care Provider: Abhay Wilson Referrals: Abhay Wilson MD [Primary Care Provider] - 3-5 Days (For reevaluation including your condition, pulse oximetry/vital signs) Disposition Disposition: Home, Self Care
[2021-12-05 23:31] LABS: Absolute Neutrophil Count 9.4 X10^3/uL (2.0-7.7); Basophil# 0.06 X10^3/uL; Basophil% 0.5 % (0-1); Eosinophils% 3.8 % (0-5); Hematocrit 42.7 % (40-54); Lymphocyte % 13.7 % (19-41); Mean Corp Hgb Conc 32.8 g/dL (32-36); Mean Corpuscular Hgb 31.5 pg (27.0-32.0); Mean Corpuscular Volume 96.2 fL (80-94); Mean Platelet Vol. 10.7 fl (6.2-12.0); Monocyte# 1.28 X10^3/uL; Monocyte% 9.8 % (0-10); NRBC Flagged by Analyzer 0 % (0-5); Neutrophil # 9.41 X10^3/uL (2.7-7.7); Neutrophil % 71.8 % (47-70); Platelet Count 189 K/mm3 (150-450); RBC Distribution Width CV 13.4 % (11.6-14.6); RBC Distribution Width SD 47.6 fl (35.1-43.9); Red Blood Count 4.44 M/mm3 (4.6-6.2); White Blood Count 13.1 K/mm3 (4.4-11.0)
[2021-12-05 23:54] LABS: ALB/GLOB Ratio 0.9 RATIO (0.9-2.4); AST(SGOT) 17 U/L (15-37); Alanine Aminotransfer ALT/SGPT 17 U/L (16-61); Albumin, Serum 3.3 g/dL (3.2-5.0); Alkaline Phosphatase 52 U/L (45-117); Anion Gap 6 (5-15); BUN 23 mg/dL (7-18); BUN/Creat Ratio 11.7 RATIO (10-20); Calcium,Total 9.3 mg/dL (8.5-10.1); Chloride 107 mmol/L (98-107); Creatinine, Serum 1.97 mg/dL (0.70-1.30); EST Glomerular Filtration Rate 35 mL/min (>60); Est Glom Filt Rate - Afr Amer 42 mL/min (>60); Estimated Creatinine Clearance 31.87 ml/min; Globulin 3.6 g/dL (2.2-4.2); Glucose 101 mg/dL (74-106); Potassium 4.1 mmol/L (3.5-5.1); Protein, Total 6.9 g/dL (6.4-8.2); Sodium Level 141 mmol/L (136-145)
--- NOTE | 2021-12-06 00:04 | RAD_ITS ---
STUDY: X-RAY CHEST REASON FOR EXAM: Male, 86 years old. Cough, right low chest pain TECHNIQUE: PA and lateral views of the chest. COMPARISON: January 06, 2019 chest x-ray FINDINGS: There is slight blunting of the right costophrenic angle greater than prior study. This is allowing for the lesser expansion of the lungs. There is no demonstrated pleural abnormality. There is mild cardiac enlargement. Normal mediastinum and sara. Normal visualized pulmonary arteries. There is atherosclerotic calcification of the aortic arch with tortuosity. There are diffuse degenerative changes of the visualized thoracic spine. Normal visualized ribs, clavicles, and shoulders. There is no demonstrated abnormality of the visualized soft tissue structures of the upper abdomen. RAD/Chest PA and Lateral IMPRESSION: Trace blunting of the right costophrenic angle subtle opacity in the right costophrenic angle consider small effusion potentially small infiltrate. Mild Cardiomegaly. Electronically Signed: Erika Gunn MD at 0:33 EDT ,
[2021-12-06 00:06] VITALS: RESP 16
[2021-12-06 00:27] LABS: Color, Urine Yellow (Yellow); Glucose, Dipstick NEGATIVE (Normal); Ketone-Dipstick 5 mg/dl (Negative); Leukocyte Esterase-Dipstick 100 /ul (Negative); Nitrite-Dipstick Negative (Negative); Occult Blood-Urine 150 /ul (Negative); Protein-Dipstick 30 mg/dl (Negative); Urine Bilirubin Dipstick Negative (Negative); Urine Clarity Clear (Clear); Urine Urobilinogen 1 mg/dl (Normal)
[2021-12-06 00:28] LABS: Bacteria 1+ /hpf (None Seen); Mucous, Urine 1+ /hpf (<or=2+); Red Blood Cells-Urine 5-10 SEEN /hpf (0-5); White Blood Cells 5-10 SEEN /hpf (0-5)
[2021-12-06 00:29] LABS: Hyaline Cast 0-5 SEEN /lpf (0-5); Squamous Epithelial Cells - UA 0-5 SEEN /hpf (0-5)
[2021-12-06 02:21] VITALS: O2SAT 94
[2021-12-06] MEDS: Azithromycin 250 MG Tablet 500 MG PO (03:49)
[2021-12-06 04:00] VITALS: BP 138/80; PULSE 94; RESP 22; TEMP 37; O2SAT 95
--- NOTE | 2021-12-06 04:13 | ED.RN ---
PT UNSTEADY W/AMBULATION. PER FAMILY THIS IS PT'S NORM; THEY STATE HE WALKS BETTER WITH A ROLLATOR, BUT WALKS VERY LITTLE AT HOME.
--- NOTE | 2021-12-06 23:08 | CT_ITS ---
STUDY: CT ABDOMEN AND PELVIS WITHOUT CONTRAST REASON FOR EXAM: Male, 86 years old. Flank pain RADIATION DOSAGE (If Supplied By Facility): CTDIvol = ( 18.02 ) mGy, DLP = ( 1058.10 ) mGycm TECHNIQUE: Transaxial images were obtained from the dome of the diaphragm to the symphysis pubis without oral contrast, and without intravenous contrast. Sagittal and coronal images were reconstructed. Individualized dose optimization techniques were used for this CT. COMPARISON: September 06, 2016 CT abdomen and pelvis, CT abdomen and pelvis March 31, 2014 FINDINGS: There is a small focus of right lower lobe consolidation/pneumonia. The visualized portions of the heart are within normal limits. Then the right hepatic lobe there is a visualized 5.9 x 4.2 cm hepatic cyst low attenuating Hounsfield units stable since prior study dating back to January 29, 2014. Since prior study it appears the left portion of the left hepatic lobe may been resected. The cyst seen in the left hepatic lobe in 2013 and is no longer visualized. There is a subtle remaining low attenuation measuring 1.3 cm less apparent than prior study September 06, 2016. There is non-visualization of the gallbladder, which may be secondary to either contraction or a prior cholecystectomy. Normal spleen. Normal pancreas. Normal bilateral adrenal glands. There are stones in the right kidney to the lower pole which measure approximately 4 mm. There is one measuring 5.4 mm. There is an upper pole stone measuring 7.5 mm. These are new since the prior study September 06, 2016. There is no hydronephrosis. There is a cyst in the right kidney measuring 1.3 cm slightly enlarged the prior study when it measured approximately 9 mm. There is mild right renal atrophy. There is mild left renal atrophy. There is a stone in the upper pole of the left kidney measuring 1.7 x 1.5 cm and an adjacent stone measuring 5.5 mm. This was seen on prior study 2016. There are also stable left renal cyst. There is a cyst measuring 3.7 x 2.7 cm. There is low Hounsfield units in the range of fat allowing for technique. There is a stone in the lower pole measuring 3 mm. There is no significant left-sided hydronephrosis. However there are multiple stones in the distal left ureter. There is a column of stones measuring 4.5, 4.1, 4.9, and 4.0. This column of stones in the distal left ureter at the ureterovesicular junction measures up to 2 cm in length and 0.49 cm in width. Normal visualized stomach. Normal small intestine. There is mild to moderate stool in the colon. There is tortuosity. There is visualized diverticulosis without definitive evidence of diverticulitis. There is postoperative change adjacent to the cecum in an elongated structure suggesting this remnant appendix stable since prior studies. Aorta is partially calcified. There is calcification of the bilateral renal arteries. Normal inferior vena cava. Normal retroperitoneum. The bladder is mostly decompressed. There is a column of stones in the distal left ureter. There is postoperative change within the base of the bladder and the prostate.. There is stable appearing thickening of the anterior abdominal wall/fascia at the level the umbilicus. There is visualized degenerative change of the thoracolumbar spine. There is multilevel spondylosis. At L2-L3 there is a broad disc bulge and facet arthropathy mild neural foraminal narrowing without central stenosis. There is a broad disc bulge L3-L4 with vacuum phenomenon with moderate to severe neural foraminal narrowing moderate to severe central stenosis. At L4-L5 there is disc space narrowing spondylosis moderate neural foraminal narrowing moderate central stenosis. There is degenerative change at L5-S1 with mild neural foraminal narrowing facet arthropathy mild central stenosis. Degenerative change within the hip joints and SI joints. CT/Abdomen/Pelvis without Cont IMPRESSION: Bilateral renal atrophy. Bilateral renal stones. No left hydronephrosis however there is a column of at least 4 stones each measuring 4 mm in the distal left ureter. There is postoperative change within the bladder and bladder wall thickening which could contribute to the obstructive appearance. Bilateral renal cysts. Slightly enlarged on the right since prior study slightly change in density since prior study on the left could consider a follow-up routine ultrasound. Stable hepatic cyst. Small cyst left hepatic lobe. Nonvisualization of the gallbladder which may been removed. Constipation and diverticulosis no diverticulitis. Postoperative change right lower quadrant possible appendectomy with remnant appendix. Multilevel degenerative change in the thoracolumbar spine. Small focus right lower lobe pneumonia. Electronically Signed: Erika Gunn MD at 1:54 EDT ,
== END 2021-12-06 04:14 | disposition home or self-care (01) ==
PROVIDERS: Emergency Provider Emergency Medicine; PCP Family Medicine; Visit Provider Emergency Medicine
DX: J18.9 Pneumonia, unspecified organism (principal); R10.819 Abdominal tenderness, unspecified site; N18.9 Chronic kidney disease, unspecified; Z86.718 Personal history of other venous thrombosis and embolism; Z87.891 Personal history of nicotine dependence
CPT/HCPCS: 71046; 74176; 80053; 81001; 85025; 87040; 87811; 96365; 99283; A4216; J0696

== ENCOUNTER 2022-04-11 12:36 | Emergency (ER) | payer MEDICARE, SELFPAY ==
[2022-04-11 12:38] VITALS: BP 130/80; PULSE 97; RESP 18; TEMP 37.1; O2SAT 97; BMI 30.5
--- NOTE | 2022-04-11 13:05 | CT_ITS ---
EXAM: CT CERVICAL SPINE WITHOUT INTRAVENOUS CONTRAST CLINICAL INDICATION: Fall injury. TECHNIQUE: Helically acquired images were obtained of the cervical spine without intravenous contrast. 2D reformatted images were reviewed. This CT exam was performed using one or more of the following dose reduction techniques: automated exposure control, adjustment of the mA and/or kV according to patient size, and/or use of iterative reconstruction technique. This report was created using [employer] report generation technology. RADIATION DOSE: CTDIvol = 20.32 mGy, DLP = 386.88 mGy-cm COMPARISON: None. FINDINGS: VERTEBRAE: Normal vertebral body heights. Moderate left C4-C5 degenerative facet arthropathy. No traumatic subluxation. No discrete lytic or blastic abnormality. Normal alignment. Normal craniocervical junction and cervicothoracic junction. DISCS/SPINAL CANAL/NEURAL FORAMINA: Moderate disc space height narrowing at C5-C6 and C6-C7 disc space levels. Mild C4-C5 disc space height narrowing. Normal remaining cervical disc space heights. Small calcified posterior bulging annulus at C4-C5 and C5-C6 disc space levels. SOFT TISSUES: Unremarkable. No prevertebral soft tissue swelling. LYMPH NODES: Unremarkable. No cervical adenopathy. LUNG APICES: Unremarkable as visualized. Clear. CT/Spine Cervical without Contras IMPRESSION: No CT evidence of acute fracture or malalignment of the cervical spine, the craniocervical junction and cervicothoracic junction. Electronically Signed: John Olivares MD at 13:45 EST Reading Location ID and State: [address] [place] [address] , Service support ,
--- NOTE | 2022-04-11 13:05 | RAD_ITS ---
EXAM: XR SACRUM AND COCCYX, 2 OR MORE VIEWS CLINICAL INDICATION: Fall injury. TECHNIQUE: Frontal and lateral views of the sacrum and coccyx. This report was created using [employer] report generation technology. COMPARISON: None. FINDINGS: SACRUM/COCCYX: Unremarkable. No displaced fracture. No destructive or sclerotic lesions. Note that overlapping bowel shadows may however obscure fine detail in the frontal view. Sacroiliac joints are unremarkable. SOFT TISSUES: Unremarkable. No soft tissue swelling or gas. RAD/Sacrum-Coccyx min 2 Views IMPRESSION: No acute fracture of the sacrum and coccyx. Electronically Signed: John Olivares MD at 14:01 EST ,
--- NOTE | 2022-04-11 13:05 | RAD_ITS ---
EXAM: XR RIGHT SHOULDER COMPLETE, 2 OR MORE VIEWS CLINICAL INDICATION: Fall injury. TECHNIQUE: Two or more views of the right shoulder. This report was created using [employer] report generation technology. COMPARISON: None. FINDINGS: BONES/JOINTS: Unremarkable. No acute fracture. No subluxation. Normal alignment. Preservation of the joint space. No sclerotic or destructive changes observed. SOFT TISSUES: Unremarkable. No soft tissue swelling or gas. No radiopaque foreign body. RAD/Shoulder min 2 Views IMPRESSION: Negative right shoulder x-rays. Electronically Signed: John Olivares MD at 14:01 EST ,
--- NOTE | 2022-04-11 13:06 | EDS_ITS ---
HPI History of Present Illness Chief Complaint: Fall Informant: patient Onset/Context/Timing Onset: Weeks Current Severity: Moderate Maximum Severity: Severe Narrative Narrative: Patient present secondary to pain in his tailbone and right arm after a fall on March 31. He states he was putting his Rollator in the car and lost his balance falling backwards. He did not that think that he had injured himself at the time. He now complains of pain along his tailbone and severe pain down his right arm. He has a history of neuropathy but states that the right arm is significantly worse than baseline. He had trouble picking up his pills and holding his razor with his right hand the past several days. He has an appointment to see Dr. Perez, spine surgery, in 2 days. He took 2 ibuprofen this morning for pain. [facility] Medical History Abnormality of gait Anxiety Arthritis Asthma Back pain Bladder disease Cancer Cardiology follow-up encounter Change in bowel habits CKD (chronic kidney disease) Diarrhea Diffuse large B-cell lymphoma of intra-abdominal lymph nodes DVT (deep venous thrombosis) Former smoker History of edema History of IBS History of irregular heartbeat History of pain when walking History of renal disease History of stress test Hypercholesteremia Hypertension Injury of head and neck Lymphoma of small bowel Mitral valve disorder Neuropathy Nocturia Osteoarthritis RBBB (right bundle branch block with left anterior fascicular block) Rectal pain 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 Shortness of breath on exertion Syncope Wears glasses Home Medications aspirin 81 mg chewable tablet 81 mg PO DAILY@0800 01/31/14 [History Last Taken 01/06/19] hydrochlorothiazide 25 mg tablet 25 mg PO DAILY 01/31/14 [History Last Taken 01/06/19] acetaminophen 325 mg tablet 650 mg PO Q4H PRN Pain Or Temp > 101 03/28/14 [History Last Taken 01/05/19] calcium carbonate 200 mg calcium (500 mg) chewable tablet 500 mg PO Q4H PRN PRN Indigestion 03/18/17 [Rx Last Taken Unknown] cholecalciferol (vitamin D3) 25 mcg (1,000 unit) tablet 1,000 unit PO DAILY 07/21/18 [History Last Taken 01/06/19] loratadine 10 mg tablet 10 mg PO DAILY 07/21/18 [History Last Taken 01/06/19] nitroglycerin 0.4 mg sublingual tablet 0.4 mg sublingual Q5M PRN Chest Pain 07/21/18 [History Last Taken Unknown] cholestyramine (with sugar) 4 gram powder for susp in a packet 4 g PO 4X/DAY 10/19/18 [History Last Taken 01/06/19] tttrjuip-eke-cabnw acid 300 mcg-lycopene 600 mcg-lutein 300 mcg tablet 1 ea PO DAILY supplement 01/06/19 [History Last Taken 01/06/19] emtas-0z-xkp-epa-fish oil-D3 300 mg-1,200 mg-1,000 unit capsule 1 ea PO DAILY supplement 01/06/19 [History Last Taken 01/06/19] vit A 7,160 unit-C 113 mg-E 100 dhll-soci-hlboes tablet,delayed rel. 1 tab PO BID eye health 01/06/19 [History Last Taken 01/06/19] gabapentin 100 mg capsule 300 mg PO TID 01/23/19 [History Last Taken Unknown] tamsulosin 0.4 mg capsule 0.4 mg PO BID 01/23/19 [History Last Taken Unknown] albuterol sulfate 2.5 mg/3 mL (0.083 %) solution for nebulization 2.5 mg (3 mL) inhalation Q4H PRN shortness of breath or wheezing #180 mL 10/23/19 [Rx Last Taken Unknown] budesonide 0.5 mg/2 mL suspension for nebulization 0.5 mg (2 mL) inhalation BID #120 mL 10/23/19 [Rx Last Taken Unknown] fluticasone propionate 50 mcg/actuation nasal spray,suspension 2 spray intranasal QHS PRN Nasal Congestion #18.2 mL 10/23/19 [Rx Last Taken Unknown] pantoprazole 40 mg tablet,delayed release 40 mg PO BID #60 tabs 05/13/21 [Rx Last Taken Unknown] sucralfate 1 gram tablet 1 g PO QAC #90 tabs 05/14/21 [Rx Last Taken Unknown] colestipol 1 gram tablet 1 g PO BID #60 tabs 05/17/21 [Rx Last Taken Unknown] diphenoxylate-atropine 2.5 mg-0.025 mg tablet (Lomotil) 1 tab PO TID PRN diarrhea #90 tabs 05/17/21 [Rx Last Taken Unknown] hydrocortisone acetate 30 mg rectal suppository 25 mg [place] BID 30 days #12 ea 05/17/21 [Rx Last Taken Unknown] hydrocortisone 2.5 % topical cream 1 applic topical TID #30 grams 05/27/21 [Rx Last Taken Unknown] rrmwpd-jeirfsip-exqnlrl 24,000-76,000-120,000 unit capsule,delayed rel (Creon) 1 cap PO TID #180 caps 09/23/21 [Rx Last Taken Unknown] azithromycin 250 mg tablet 250 mg PO QHS #4 TABLETS 12/06/21 [Rx Last Taken Unknown] hydrocodone-acetaminophen 5-325mg 5mg-325mg 1 tab PO Q6H PRN pain 3 days #10 tabs 04/11/22 [Rx Last Taken Unknown] prednisone 20 mg tablet 60 mg PO DAILY #15 tabs 04/11/22 [Rx Last Taken Unknown] Allergy/AdvReac Type Severity Reaction Status Date / Time ampicillin AdvReac Intermediate rectal Verified 04/11/22 12:37 yeast gabapentin AdvReac Mild goofy Verified 04/11/22 12:37 groggy diltiazem AdvReac Stasis Verified 04/11/22 12:37 edema erythromycin base AdvReac YEAST Verified 04/11/22 12:37 [Erythromycin Base] INFECTION lisinopril AdvReac cough Verified 04/11/22 12:37 meperidine [From Demerol] AdvReac Nausea Verified 04/11/22 12:37 niacin AdvReac FEELS Verified 04/11/22 12:37 LIKE ON FIRE Family History Mother Heart disease Grandmother Diabetes Brother Hypertension Surgical History History of appendectomy History of cholecystectomy History of colectomy History of hemicolectomy History of hernia repair History of laminectomy History of tonsillectomy History of total left knee replacement History of total right knee replacement Hx of cholecystectomy Hx of colonoscopy Hx of ventral hernia repair S/P anal fissurectomy Social History Smoking Status: Former smoker how long ago did patient quit smokin, 1ppd second hand exposure: Yes ROS ROS ED Constitutional Constitutional ED: Denies chills or fever(s) Eyes Eyes: Denies change in vision or discharge from eye(s) ENT ENT ED: Denies discharge from eye(s), rhinorrhea or sore throat Cardiovascular Cardiovascular: Denies chest pain or palpitations Respiratory/Chest Respiratory/Chest: Denies cough or dyspnea Gastrointestinal Gastrointestinal: Denies abdominal pain, diarrhea, nausea or vomiting Genitourinary Genitourinary ED: Denies difficulty urinating or dysuria Musculoskeletal Musculoskeletal: Reports back pain and extremity pain Integumentary Denies Abrasions or rash Neurologic Neurologic: Reports paresthesias and weakness; Denies headache(s) Psychiatric Psychiatric: Denies anxiety or depression Endocrine Endocrinology: Denies polydipsia or polyuria Allergic/Immunologic Allergic/Immunologic ED: Denies lip swelling or urticaria EXAM Physical Exam Const Vital Signs: 04/11/22 12:38 04/11/22 13:13 Temperature 98.7 F Temperature Source Temporal Pulse Rate 97 Respiratory Rate 18 Respiratory Effort Normal Respiratory Depth Normal Respiratory Pattern Normal Blood Pressure 130/80 H Blood Pressure Mean 96 Pulse Ox 97 Oxygen Delivery Method Room Air Positive well nourished and well developed General Appearance ED: well developed HEENT Reports normocephalic and head/scalp atraumatic Eyes PERRL and EOMs intact bilaterally Neck supple Chest Wall inspection of chest normal and palpation of chest normal Resp normal respiratory effort and clear to auscultation bilaterally Cardio regular rate and regular rhythm GI normal to inspection, nondistended, normoactive bowel sounds Palpation: soft Back/Spine Back/Spine Narrative: No reproducible C-spine tenderness. Extremity normal to inspection Extremity Narrative: Slight decreased hand grasp on the right. Good cap refill throughout. Good range of motion of the right upper extremity. Neuro oriented x3 Sensorium / Orientation: alert Psych mental status grossly normal Skin no rashes or lesions noted MDM MDM MDM Narrative Medical decision making narrative: Patient sent for x-rays of his sacrum and coccyx as well as right shoulder. CT of the C-spine obtained. Radiography Diagnostic Testing: Clinical Impression(s) from Imaging Studies Cervical Spine CT 04/11/22 13:05 IMPRESSION: No CT evidence of acute fracture or malalignment of the cervical spine, the craniocervical junction and cervicothoracic junction. Electronically Signed: John Olivares MD at 13:45 EST , Sacrum and Coccyx X-Ray 04/11/22 13:05 IMPRESSION: No acute fracture of the sacrum and coccyx. Electronically Signed: John Olivares MD at 14:01 EST , Shoulder X-Ray 04/11/22 13:05 IMPRESSION: Negative right shoulder x-rays. Electronically Signed: John Olivares MD at 14:01 EST , Treatment and Re-Evaluation Narrative: X-ray the right shoulder per my interpretation reveals no acute findings. Radiology interpretation is reviewed. X-ray of the sacrum and coccyx per my interpretation reveals no fracture. Radiology interpretation reviewed and agrees. CT of the C-spine reveals no acute fracture. Test results are discussed with patient and daughter at bedside. We will write him a short course of prednisone as well as [place] for control of his radiculopathy. He is already scheduled to see Dr. Perez, spine surgeon on Wednesday. Return instructions given. Discharge Plan Triage Chief Complaint: Fall ED Provider: Marissa Vargas Dx/Rx/DC Orders Clinical Impression: Cervical radiculopathy, Fall, Coccyx contusion Instructions: ED Coccyx or Sacrum Contusion, ED Mechanical Fall, ED Radiculopathy, Cervical Prescriptions: New prednisone 20 mg tablet 60 mg PO DAILY Qty: 15 0RF hydrocodone-acetaminophen 5-325 mg tablet 1 tab PO Q6H PRN (Reason: pain) 3 Days Qty: 10 0RF No Action tamsulosin 0.4 mg capsule 0.4 mg PO BID gabapentin 100 mg capsule 300 mg PO TID albuterol sulfate 2.5 mg /3 mL (0.083 %) solution for nebulization 2.5 mg inhalation Q4H PRN (Reason: shortness of breath or wheezing) Qty: 180 6RF budesonide 0.5 mg/2 mL suspension for nebulization 0.5 mg INHALATION BID Qty: 120 6RF fluticasone propionate 50 mcg/actuation spray,suspension 2 spray INTRANASAL QHS PRN (Reason: Nasal Congestion) Qty: 18.2 6RF hydrocortisone 2.5 % cream 1 applic topical TID Qty: 30 3RF Creon 24,000-76,000 -120,000 unit capsule,delayed release(DR/EC) 1 cap PO TID Qty: 180 5RF Rx Instructions: take three with meals and one with snacks aspirin 81 MG tablet,chewable 81 mg PO DAILY@0800 hydrochlorothiazide 25 MG tablet 25 mg PO DAILY acetaminophen 325 MG tablet 650 mg PO Q4H PRN (Reason: Pain Or Temp > 101) calcium carbonate 500 MG tablet 500 mg PO Q4H PRN PRN (Reason: Indigestion) 0RF nitroglycerin 0.4 MG tablet 0.4 mg sublingual Q5M PRN (Reason: Chest Pain) cholecalciferol (vitamin D3) 1,000 UNIT tablet 1,000 unit PO DAILY loratadine 10 MG tablet 10 mg PO DAILY cholestyramine (with sugar) 4 GM powder in packet 4 g PO 4X/DAY drgnqctz-vlq-GF-lycopen-lutein 1 EACH tablet 1 ea PO DAILY krbxt-8z-nla-epa-fish oil-D3 1 EACH capsule 1 ea PO DAILY vitamins A,C,B-lqzh-sfzqbr 1 EACH tablet,delayed release (DR/EC) 1 tab PO BID azithromycin [azithromycin] 250 mg tablet 250 mg PO QHS Qty: 4 0RF Rx Instructions: start night of 12/07 pantoprazole 40 mg tablet,delayed release (DR/EC) 40 mg PO BID Qty: 60 2RF sucralfate 1 gram tablet 1 g PO QAC Qty: 90 0RF Rx Instructions: take three times a day one hour prior to meals on an empty stomach for thirty days. diphenoxylate-atropine [Lomotil] 2.5-0.025 mg tablet 1 tab PO TID PRN (Reason: diarrhea) Qty: 90 0RF hydrocortisone acetate 30 mg suppository 25 mg DE BID 30 Days Qty: 12 5RF colestipol 1 gram tablet 1 g PO BID Qty: 60 1RF Primary Care Provider: Abhay Wilson Referrals: Santino Perez DO [Med Staff - Active Staff] - Keep Dagoberto appointment Abhay Wilson MD [Primary Care Provider] - Disposition Disposition: Home, Self Care
== END 2022-04-11 14:41 | disposition home or self-care (01) ==
PROVIDERS: Emergency Provider Emergency Medicine; PCP Family Medicine; Visit Provider Emergency Medicine
DX: S30.0XXA Contusion of lower back and pelvis, initial encounter (principal); M54.12 Radiculopathy, cervical region; I12.9 Hypertensive chronic kidney disease with stage 1 through stage 4 chronic kidney disease, or unspecified chronic kidney disease; Z87.891 Personal history of nicotine dependence; E78.00 Pure hypercholesterolemia, unspecified; N18.9 Chronic kidney disease, unspecified; Z79.52 Long term (current) use of systemic steroids; W19.XXXA Unspecified fall, initial encounter
CPT/HCPCS: 72125; 72220; 73030; 99282

== ENCOUNTER → 2022-05-25 | Outpatient (CLI) | payer MEDICARE, SELFPAY ==
--- NOTE | 2022-05-25 12:12 | MRI_ITS ---
INDICATION: Pain INTO L SHOULDER EXAMINATION: MRI - MR Spine Cervical W/O Contrast TECHNIQUE: Multiplanar and multisequence MR images of the cervical spine were performed. IV Contrast Dosage and Agent: None. COMPARISON: 04/11/2022 FINDINGS: VERTEBRAE: Normal vertebral bodies and posterior elements. VERTEBRAL ALIGNMENT: Normal, including the craniocervical junction and cervicothoracic junction. Slight degenerative spondylolisthesis at C4-5 and C5-6. There is preservation of the normal cervical lordosis. CERVICAL SPINAL CORD: Unremarkable in signal and morphology. C2/C3: Normal disc height and morphology. Normal spinal canal and neuroforamina. C3/C4: Normal disc height and morphology. Normal spinal canal and neuroforamina. C4/C5: Disc bulge. Mild spinal canal stenosis. No neural foraminal stenosis. C5/C6: Disc bulge, uncovertebral hypertrophy, and ligamentum flavum buckling. Mild spinal canal stenosis. Moderate bilateral neural foraminal stenosis. C6/C7: Disc bulge and ligamentum flavum buckling. Mild spinal canal stenosis. Mild bilateral neural foraminal stenosis. C7/T1: Normal disc height and morphology. Normal spinal canal and neuroforamina. NECK SOFT TISSUES: No prevertebral soft tissue swelling. There is no cervical adenopathy. MRI/Spine Cervical (Routine) IMPRESSION: 1. Mid to lower cervical spine degenerative change, including moderate bilateral neural foraminal stenosis at C5-6. 2. No traumatic finding. Electronically Signed: Kg Mary MD at 17:00 EST ,
== END | disposition home or self-care (01) ==
LOC: MRI 12:12
PROVIDERS: PCP Family Medicine
DX: M54.12 Radiculopathy, cervical region (principal)
CPT/HCPCS: 72141

== ENCOUNTER 2022-07-17 07:14 | Day surgery (SDC) | payer MEDICARE, SELFPAY ==
[2022-07-17] VITALS (7 sets, daily range): BP systolic 93–131; BP diastolic 47–63; PULSE 69–94; RESP 12–18; TEMP 36.1–37.1; O2SAT 71–97; BMI 32.0
[2022-07-17] MEDS: Lactated Ringers 1,000 ML 15 ML IV (07:50)
--- NOTE | 2022-07-17 08:24 | HP.PCM_ITS ---
History and Physical Date of Admission: 07/17/22 [facility] [address] [place] [address] OFFICE VISIT Date of Service:? 07/01/22 MR#: [id number] Acct: [id number] Name:AMBERLY HERNANDEZ Rep #: [id number] : 1935 ? ? Provider: Dr. Greg Rosado, DO Age/Sex:? 86/M ? ? Location: [facility] [place].[facility] Status: Signed with Addenda ADDENDUM by Dr. Greg Rosado DO on 07/01/22 at 1407 Assessment and Plan Assessment and Plan Plan . 07/01/22 140 <Electronically signed by Greg Rosado DO> Date Greg Rosado DO cc:? Dr. Abhay Wilson MD ~* Signed ADDENDUM by Dr. Greg Rosado DO on 07/01/22 at 1406 Assessment and Plan Assessment and Plan Plan Reviewed the pre-operative plans with the patient. Risks and benefits of the procedure were fully explained, including but not limited to infection, neurovascular injury, continued pain, arthritis, stiffness, need for further surgery, re-injury, DVT, PE, general risks of anesthesia, and loss of limb or life. The patient understands all the risks and does wish to proceed with written consent. 07/01/22 140 <Electronically signed by Greg Rosado DO> Date Greg Rosado DO cc:? Dr. Abhay Wilson MD ~* Signed Intake Intake Visit Reasons:?BL hands Is patient in pain?: Yes Allergies ampicillin Adverse Reaction (Intermediate, Verified 07/01/22 13:25) rectal yeastgabapentin Adverse Reaction (Mild, Verified 07/01/22 13:25) goofy groggydiltiazem Adverse Reaction (Verified 07/01/22 13:25) Stasis edemaerythromycin base [Erythromycin Base] Adverse Reaction (Verified 07/01/22 13:25) YEAST INFECTIONlisinopril Adverse Reaction (Verified 07/01/22 13:25) coughmeperidine [From Demerol] Adverse Reaction (Verified 07/01/22 13:25) Nauseaniacin Adverse Reaction (Verified 07/01/22 13:25) FEELS LIKE ON FIRE Medications aspirin 81 mg chewable tablet 81 mg PO DAILY@0800 01/31/14 [History Confirmed 07/01/22] hydrochlorothiazide 25 mg tablet 25 mg PO DAILY 01/31/14 [History Confirmed 07/01/22] acetaminophen 325 mg tablet 650 mg PO Q4H PRN Pain Or Temp > 101 03/28/14 [History Confirmed 07/01/22] calcium carbonate 200 mg calcium (500 mg) chewable tablet 500 mg PO Q4H PRN PRN Indigestion 03/18/17 [Rx Confirmed 07/01/22] cholecalciferol (vitamin D3) 25 mcg (1,000 unit) tablet 1,000 unit PO DAILY 07/21/18 [History Confirmed 07/01/22] loratadine 10 mg tablet 10 mg PO DAILY 07/21/18 [History Confirmed 07/01/22] pjteudme-fab-jvhed acid 300 mcg-lycopene 600 mcg-lutein 300 mcg tablet 1 ea PO DAILY supplement 01/06/19 [History Confirmed 07/01/22] gwsgc-6l-vna-epa-fish oil-D3 300 mg-1,200 mg-1,000 unit capsule 1 ea PO DAILY supplement 01/06/19 [History Confirmed 07/01/22] vit A 7,160 unit-C 113 mg-E 100 djjl-mels-wxxjtu tablet,delayed rel. 1 tab PO BID eye health 01/06/19 [History Confirmed 07/01/22] gabapentin 100 mg capsule 300 mg PO TID 01/23/19 [History Confirmed 07/01/22] tamsulosin 0.4 mg capsule 0.4 mg PO BID 01/23/19 [History Confirmed 07/01/22] albuterol sulfate 2.5 mg/3 mL (0.083 %) solution for nebulization 2.5 mg (3 mL) inhalation Q4H PRN shortness of breath or wheezing #180 mL 10/23/19 [Rx Confirmed 07/01/22] fluticasone propionate 50 mcg/actuation nasal spray,suspension 2 spray intranasal QHS PRN Nasal Congestion #18.2 mL 10/23/19 [Rx Confirmed 07/01/22] pantoprazole 40 mg tablet,delayed release 40 mg PO BID #60 tabs 05/13/21 [Rx Confirmed 07/01/22] sucralfate 1 gram tablet 1 g PO QAC #90 tabs 05/14/21 [Rx Confirmed 07/01/22] colestipol 1 gram tablet 1 g PO BID #60 tabs 05/17/21 [Rx Confirmed 07/01/22] diphenoxylate-atropine 2.5 mg-0.025 mg tablet (Lomotil) 1 tab PO TID PRN diarrhea #90 tabs 05/17/21 [Rx Confirmed 07/01/22] hydrocortisone acetate 30 mg rectal suppository 25 mg [place] BID 30 days #12 ea 05/17/21 [Rx Confirmed 07/01/22] hydrocortisone 2.5 % topical cream 1 applic topical TID #30 grams 05/27/21 [Rx Confirmed 07/01/22] ypdfcw-kvlalsur-yainksw 24,000-76,000-120,000 unit capsule,delayed rel (Creon) 1 cap PO TID #180 caps 09/23/21 [Rx Confirmed 07/01/22] azithromycin 250 mg tablet 250 mg PO QHS #4 TABLETS 12/06/21 [Rx Confirmed 07/01/22] PFSH Medical History? Abnormality of gait Anxiety Arthritis Asthma Back pain Bladder disease Cancer Cardiology follow-up encounter Change in bowel habits CKD (chronic kidney disease) Diarrhea Diffuse large B-cell lymphoma of intra-abdominal lymph nodes DVT (deep venous thrombosis) Former smoker History of edema History of IBS History of irregular heartbeat History of pain when walking History of renal disease History of stress test Hypercholesteremia Hypertension Injury of head and neck Lymphoma of small bowel Mitral valve disorder Neuropathy Nocturia Osteoarthritis RBBB (right bundle branch block with left anterior fascicular block) Rectal pain 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 History of appendectomy History of cholecystectomy History of colectomy History of hemicolectomy History of hernia repair History of laminectomy History of tonsillectomy History of total left knee replacement History of total right knee replacement Hx of cholecystectomy Hx of colonoscopy Hx of ventral hernia repair S/P anal fissurectomy Family History? Mother Heart diseaseGrandmother DiabetesBrother Hypertension Social History? Smoking Status:? Former smoker how long ago did patient quit smoking:? 1975, 1ppd second hand exposure:? Yes HPI BL hands Details: Parts of this documentation were recorded by a scribe, this documentation a ccurately reflects the service provided and the decisions made by me, Dr. Greg Rosado, DO 07/01/22 0801. AMBERLY PAZ is a 86 year old M here today to review the results of [facility] Patient states that he has achiness from his wrist into his shoulder. Patient complains of numbness into his entire hand. He states that he has weakness into his right hand.? He also complains of numbness into left arm. Patient notes that he has numbness into his legs due to neuropathy. Ortho Exam General General: Yes no acute distress Neurologic: Yes alert and Yes oriented x3 Psychologic: Yes reasonable and appropriate Right Wrist/Hand Skin/Wound: Yes CDI, No Swelling, No Ecchymosis and Yes capillary refill normal Right Wrist: No ROM-Extension 0-60, ROM-Flexion 0-80, ROM-Pronation 0-80 or ROM- Supination 0-90 WRIST: mild thenar atrophy, resting tremor, able to abduct against resistance. 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 lacking 1cm flexion tip to palm.palpable significant triggering of middle finger tender A1 enmanuel. 45 wrist extension, 50 wrist flexion good wrist and elbow strength. Left Wrist/Hand Skin/Wound: No Swelling, No Ecchymosis, Yes capillary refill normal and No erythema WRIST: mild thenar atrophy, weakness with finger abduction, able to make full fist with weakness. trigger finger into his middle finger. 60 wrist extension, 50 wrist flexion palpable significant triggering of middle finger tender A1 enmanuel. Head: Normocephalic Atraumatic Chest: symmetrical rise, non-labored breathing, no audible wheeze Abdomen: no guarding, non-rigid Supplemental Info 06/15/2022 EMG upper extremity: Sensorimotor peripheral polyneuropathy involving bilateral upper extremities this is moderate range.? 2 superimposed right median mononeuropathy at the wrist consistent with a diagnosis of carpal tunnel syndrome very severe in degree.? No functioning median axons identified distal to the wrist.? 3 left median mononeuropathy at the wrist.? Consistent with severe carpal tunnel syndrome.? For the possibility of superimposed bilateral C8 versus T1 radiculopathies cannot be entirely ruled out, but appears lower probability.(Secondary to the superimposed peripheral neuropathy and severe carpal tunnel syndrome.) 05/25/2022 MRI cervical spine:1. Mid to lower cervical spine degenerative change, including moderate bilateral neural foraminal stenosis at C5-6.? 2. No traumatic finding.? Coding Level of Care Code Off vis,est,level 3 Diagnoses Bilateral carpal tunnel syndrome? G56.03 Peripheral neuropathy? G62.9 Cervical stenosis of spine? M48.02 Trigger finger, left middle finger? M65.332 Trigger finger, right middle finger? M65.331 Assessment and Plan Assessment and Plan (1) Bilateral carpal tunnel syndrome: (2) Peripheral neuropathy: (3) Cervical stenosis of spine: (4) Trigger finger, left middle finger: (5) Trigger finger, right middle finger: Plan Educated the patient about the anatomy of the hand and etiology of his numbness. Spoke with him about having severe bilateral carpal tunnel syndrome, along with other reasons to have numbness including cervical foraminal stenosis and peripheral neuropathy. dissussed risk benefits of right carpal tunnel release to help prevent further permanent damage.? Given the severity of his carpal tunnel and no response is seen on EMG past the wrist there is possibility that his symptoms do not improve or could take up to 2 years to regain maximal improvement also in severe cases such as this sometimes there is increased numbness and tingling after the surgery as the nerve starts to regenerate if this happens is usually migrates distally over time, we also discussed risk of incisional hypersensitivity and pillar pain.? In addition he may need further surgery or consultation with spine for his foraminal stenosis.? spoke with the patient about treatment for his trigger finger- release, injection or rest.? Patient wished to proceed with surgery for a carpal tunnel release and right middle trigger finger release, and left middle trigger finger injection. He is not able to lift greater than 1/2pound post op, he will then have a 5 pound restriction until 3 week post op.? We will need a medical clearance from his PCP prior to proceeding with surgery. He needs to stop taking ibuprofen or Aleve or any NSAID 7 days prior to surgery. Spoke with the patient about seeing his PCP for his? tremor and peripheral neuropathy. Follow up in 2 weeks postop or sooner if pain, swelling, numbness or associated symptoms, or concerns develop.? All questions answered. Patient in agreement of plan. 07/01/22 1406 <Electronically signed by Greg Rosado DO> Date Greg Rosado DO Cosigner Signature: Date (if applicable) I have examined the patient the following changes are noted:
[2022-07-17] MEDS: Cefazolin 2 GM in 0.9% Normal Saline 100 ML IV (09:03)
[2022-07-17] MEDS: Lidocaine 1% /Epi 1:100 (20ml) 20 ML Vial (09:07)
[2022-07-17] MEDS: MethylPREDNISolone Acetate 40 MG/ML Vial IM (09:28)
[2022-07-17] MEDS: Bupiv/Epi 0.25% 30 ML Vial (09:28)
--- NOTE | 2022-07-17 09:31 | OP.PCM_ITS ---
Operative Report Date of Procedure: 07/17/22 Preoperative diagnosis; right carpal tunnel syndrome, right middle finger trigger finger left middle finger trigger finger Postoperative diagnosis; same Procedure: 1.Right open carpal tunnel release 2 ight middle finger trigger 3. Left middle finger steroid injection A1 enmanuel 20 mg Depo-Medrol half cc Marcaine Anesthesia: Local with MAC Tourniquet time; [17] minutes 250 mm Hg Complications: None Indication for procedure; This is a [id number] with long-standing symptoms consistent with carpal tunnel syndrome and middle finger bilateral trigger finger the patient did have electrodiagnostic evidence of this and has failed conservative treatment. Risks benefits and alternatives were reviewed including risks of bleeding infection nerve artery tissue damage need for further surgery and continued pain and symptoms, hypersensitivity to scar and Pillar pain. Procedure; The patient was met in the preoperative holding area the operative extremity was identified by both patient and physician and was marked the patient was met by anesthesia and brought back to the operating room and transferred to the operating table in the supine position. Anesthesia was started. A well-padded tourniquet was placed on the operative upper extremity. The patient was prepped and draped in the usual sterile fashion. A timeout was called to ensure the proper patient procedure and extremity were being contemplated. 0.5 percent bupivacaine with epinephrine was injected into the in cisional area. An Esmarch was used to exsanguinate the extremity. The tourniquet was inflated to 250 mmHg. A midline incision was made with a 15 blade scalpel between the thenar and hypothenar eminence. This was carried down through the skin and subcutaneous tissue. Ariel retractors were then used, a deep blade scalpel was used to make a deep incision in the palmar aponeurosis. The ariel retractors were then placed deep to this and the transverse carpal ligament was identified a perforation was made with a scalpel and a Littler scissors were used to complete the release of the transverse carpal ligament distally under direct visualization with the tips facing ulnarly until the perivascular fat was reached. Then turning our attention proximally using a tension slide technique the proximal extent of the transverse carpal ligament was released . There was noted to be [hourglass configuration to the median nerve and significant hypertrophy of the transverse carpal ligament without ot her findings]. The wound was thoroughly irrigated and was closed with 4-0 nylon vertical mattress stitches. 15 blade scalpel was used to make a longitudinal incision directly over the A1 enmanuel was carried down through the subcutaneous tissue Ariel retractors placed radial and ulnar protecting the digital nerves and a Ragnell retractor was used at the apex of the incision under direct visualization a deep blade scalpel was used to release the A1 enmanuel. The wound was thoroughly irrigated and closed with 4-0 nylon vertical mattress edges. Dressing was applied in the form of xeroform 4 x 4, web roll and an trudy wrap. Tourniquet was let down there is no intraoperative complications patient tolerated the procedure well and was transferred to the PACU. All counts were correct.
--- NOTE | 2022-07-17 09:37 | DCINST_ITS ---
Discharge Instructions Diet Discharge Diet: No restrictions Dressing / Incision Call your doctor if you observe: Shortness of breath and Chest pain Additional Dressing/Incision Instructions:: Ice and elevate operative extremity next 72 hours. Keep dressing on clean and dry for 48 hours then may remove and allow warm soapy water to rinse over incision but do not submerge until sutures are out. Then apply bandaid over incision and change daily. encourage finger range of motion. Not lift more than 1/2 pound. Minimize narcotic use only as needed and directed, may use OTC NSAID and Tylenol to supplement/substitute for pain control. Follow Up Care Please Follow Up With: Greg Rosado DO When: 2 weeks Test Results: Test results from this visit will be discussed in further detail at your follow- up appointment, if applicable. Discharge Plan Admission Primary Reason for Your Visit: Right hand surgery Attending Provider: Greg Rosado Primary Care Provider: Abhay Wilson Discharge Orders/Prescriptions Prescriptions: New oxycodone 5 mg tablet 2.5 - 5 mg PO Q4H PRN (Reason: pain) 5 Days Qty: 10 0RF No Action tamsulosin 0.4 mg capsule 0.4 mg PO BID gabapentin 100 mg capsule 300 mg PO TID albuterol sulfate 2.5 mg /3 mL (0.083 %) solution for nebulization 2.5 mg inhalation Q4H PRN (Reason: shortness of breath or wheezing) Qty: 180 6RF fluticasone propionate 50 mcg/actuation spray,suspension 2 spray INTRANASAL QHS PRN (Reason: Nasal Congestion) Qty: 18.2 6RF hydrochlorothiazide 25 MG tablet 25 mg PO DAILY calcium carbonate 500 MG tablet 500 mg PO Q4H PRN PRN (Reason: Indigestion) 0RF cholecalciferol (vitamin D3) 1,000 UNIT tablet 1,000 unit PO DAILY loratadine 10 MG tablet 10 mg PO DAILY gplpxxgd-hep-EM-lycopen-lutein 1 EACH tablet 1 ea PO DAILY pygqp-2x-ldk-epa-fish oil-D3 1 EACH capsule 1 ea PO DAILY vitamins A,C,U-obog-ssddzd 1 EACH tablet,delayed release (DR/EC) 1 tab PO BID diphenoxylate-atropine [Lomotil] 2.5-0.025 mg tablet 1 tab PO TID PRN (Reason: diarrhea) Qty: 90 0RF colestipol 1 gram tablet 1 g PO BID Qty: 60 1RF Referrals / Follow Up: Abhay Wilson MD [Primary Care Provider] - Disposition Disposition (needs filled in before D/C Order can be placed): Home, Self Care
== END 2022-07-17 10:49 | disposition home or self-care (01) ==
LOC: SDC 07:17 → AC 07:18
PROVIDERS: PCP Family Medicine; Referring Provider Orthopaedic Surgery; Visit Provider Orthopaedic Surgery
PROC: (CPT 64721; principal; 2022-07-17 08:50)
DX: G56.01 Carpal tunnel syndrome, right upper limb (principal); M65.332 Trigger finger, left middle finger; M65.331 Trigger finger, right middle finger; I45.2 Bifascicular block; I12.9 Hypertensive chronic kidney disease with stage 1 through stage 4 chronic kidney disease, or unspecified chronic kidney disease; N18.9 Chronic kidney disease, unspecified; M48.02 Spinal stenosis, cervical region; Z98.1 Arthrodesis status; Z79.899 Other long term (current) drug therapy; Z87.891 Personal history of nicotine dependence
CPT/HCPCS: 64721; 26055; 20550; 01810; J7120; J2405

== ENCOUNTER → 2023-08-06 | Outpatient (CLI) | payer MEDICARE, SELFPAY ==
--- NOTE | 2023-08-06 13:20 | CT_ITS ---
STUDY: CT Abdomen And Pelvis W/O Contrast Injection 08/08/2023 3:38 PM REASON FOR EXAM: Male, 87 years old. Abdominal pain ABDOMINAL PAIN Individualized dose optimization techniques were used for this CT. COMPARISON: None. TECHNIQUE: CT Abdomen And Pelvis W/O Contrast Injection Oral Readi-CAT FINDINGS: There are atherosclerotic calcifications of visualized coronary arteries. The visualized portions of the heart are within normal limits. Stable hypodensity of the liver. There is non-visualization of the gallbladder, which may be secondary to either contraction or a prior cholecystectomy. Normal spleen. Normal pancreas. Normal bilateral adrenal glands. There are hypodensities in the right kidney. These are consistent for cysts. No follow up required. There are hypodensities in the left kidney. These are consistent for cysts. No follow up required. Non obstructive 7.9mm left renal parenchymal stones.Non obstructive 15 mm left renal parenchymal stones. Normal visualized stomach. Normal small intestine. There are multiple colonic diverticula consistent with diverticulosis. There is non-visualization of the appendix. There is wall thickening of the rectosigmoid colon. There is also questionable inflammation around the colon. This can suggest a colitis. This can also suggest incomplete distension of the colon. There are calcifications of the abdominal aorta. This is consistent for atherosclerotic disease. There is NO abdominal aortic aneurysm. Vascular workup can be obtained based on clinical correlation. Normal inferior vena cava. Subcentimeter mesenteric lymph nodes. Normal urinary bladder. There are prostatic calcifications. There are prostatic seed implants. Normal abdominal wall. There are diffuse degenerative changes of the visualized lumbar spine. Osseous fusion at L5-S1. There is bilateral neural foraminal stenosis at L4-5 and L5-S1. CT/Abdomen/Pel W ORAL Cont Only IMPRESSION: (NOT LISTED IN ORDER OF SIGNIFICANCE) Mild colitis of the rectosigmoid colon Other findings as above. Electronically Signed: Darwin Smith MD at 15:42 EDT ,
== END | disposition home or self-care (01) ==
LOC: CT 13:19
PROVIDERS: PCP Family Medicine; Referring Provider Internal Medicine Medical Oncology; Visit Provider Internal Medicine Medical Oncology
DX: R10.9 Unspecified abdominal pain (principal); C85.90 Non-Hodgkin lymphoma, unspecified, unspecified site; K59.00 Constipation, unspecified
CPT/HCPCS: 74176